=== PATIENT | male | born 1940 | race Caucasian/White ===

== ENCOUNTER 2023-05-12 02:37 | Observation (INO) ==
--- NOTE | 2023-05-12 02:53 | Emergency Department Note ---
History of Present Illness General Chief complaint: Chest Pain Stated complaint: CHEST PAIN Time Seen by Provider: 05/12/23 02:39 History of Present Illness 83-year-old male presents emergency department with substernal chest pressure radiating across his chest into his back with slight nausea that started at 11 :30 PM while he was watching a boxing match on television. Patient has a history of A-fib he is currently on Eliquis. Patient called 911 he states the pain was 10 out of 10 he was given 100 mcg of fentanyl and 3 sublingual nitro as well as Zofran and he states resolution of the chest pain. Patient has no other complaints such as nausea vomiting cough fever hemoptysis. Home Medications Medication Instructions Recorded Confirmed Type allopurinol 100 mg tablet 100 mg PO BID 05/12/23 05/12/23 History apixaban 5 mg tablet (Eliquis) 5 mg PO BID 05/12/23 05/12/23 History cholecalciferol (vitamin D3) 25 25 mcg PO DAILY 05/12/23 05/12/23 History mcg (1,000 unit) tablet (Vitamin D3) losartan 25 mg tablet 25 mg PO DAILY 05/12/23 05/12/23 History zinc gluconate 50 mg tablet 50 mg PO DAILY 05/12/23 05/12/23 History Allergies Allergy/AdvReac Type Severity Reaction Status Date / Time aspirin Allergy Unknown Verified 05/12/23 03:13 Past Med/Surg History Immunizations: Past medical history is atrial fibrillation Review of Systems A total of 10 systems reviewed and were otherwise negative Cardiovascular: + chest pain Physical Exam Vital Signs Vital Signs - 24 hr 05/12/23 02:56 05/12/23 03:32 05/12/23 03:52 Temperature 36.8 C Temperature Source Oral Pulse Rate 68 75 Pulse Rate from SpO2 Sensor Respiratory Rate 18 18 Respiratory Effort / Characteristics Non-Labored Spontaneous Respiratory Depth Normal Blood Pressure 131/64 Blood Pressure Mean 86 Pulse Oximetry 96 98 Oxygen Delivery Method Nasal Cannula Nasal Cannula Nasal Cannula Oxygen Flow Rate 2 2 2 Sepsis Recent Fever Within 48 Hours No Sepsis New/Unexplained Change in Mental Status No Sepsis Action Taken by Nursing No Action Required 05/12/23 02:53 05/12/23 03:00 05/12/23 03:30 Temperature Temperature Source Pulse Rate 82 75 79 Pulse Rate from SpO2 Sensor 83 76 77 Respiratory Rate 24 27 H 24 Respiratory Effort / Characteristics Respiratory Depth Blood Pressure 137/78 Blood Pressure Mean 97 Pulse Oximetry 92 97 98 Oxygen Delivery Method Oxygen Flow Rate Sepsis Recent Fever Within 48 Hours Sepsis New/Unexplained Change in Mental Status Sepsis Action Taken by Nursing 05/12/23 04:00 05/12/23 04:30 Temperature Temperature Source Pulse Rate 76 65 Pulse Rate from SpO2 Sensor 74 64 Respiratory Rate 22 16 Respiratory Effort / Characteristics Respiratory Depth Blood Pressure 104/56 L Blood Pressure Mean 72 Pulse Oximetry 99 98 Oxygen Delivery Method Oxygen Flow Rate Sepsis Recent Fever Within 48 Hours Sepsis New/Unexplained Change in Mental Status Sepsis Action Taken by Nursing GENERAL: Patient is awake alert in no acute distress patient is resting comfortably and showing no signs of anxiety EYES: The conjunctivae are clear. The pupils are round and reactive. EARS, NOSE, MOUTH AND THROAT: The nose is without any evidence of any deformity. Mucous membranes are moist. Tongue is midline. NECK: The neck is nontender and supple. RESPIRATORY: Normal respiratory effort is noted there is no evidence of wheezing rhonchi or rales CARDIOVASCULAR: Irregular rate and rhythm noted there no murmurs rubs or gallops normal S1 normal S2. GASTROINTESTINAL: The abdomen is soft. Abdomen is nontender. BACK: Full range of motion MUSCULOSKELETAL/EXTREMITIES: There is no evidence of gross deformity full range of motion is noted in the hips and shoulders. SKIN: There is no obvious evidence of any rash. There are no petechiae, pallor or cyanosis noted. NEUROLOGIC: Patient is awake alert and oriented x3 strength is symmetric Course Reevaluation(s) Reevaluation #1: Patient is resting in no distress on repeat examination. Patient was given and fentanyl prior to arrival Time: 04:39 Consultations Consultation #1: [facility] Time: 04:39 Medical Decision Making Medical Records Attestation: I reviewed the patient's medical records. Home Medications Current Medication List: was personally reviewed by me Laboratory Data Attestation: I reviewed the patient's lab results. Patient has an elevated white blood cell count as interpreted by me 05/12/23 03:38 05/12/23 03:38 Lab Results 05/12/23 05/12/23 05/12/23 Range/Units 03:38 03:38 03:38 WBC 13.87 H (4.8-10.8) K/ul RBC 5.18 (4.70-6.10) M/uL Hgb 16.3 (14.0-18.0) g/dl Hct 47.7 (42.0-52.0) % MCV 92.1 (80.0-100.0) fL MCH 31.5 (25.0-34.0) pg MCHC 34.2 (32.0-36.0) g/dL RDW Std Deviation 46.1 (36.4-46.3) fL RDW Coeff of Storm 13.6 (11.5-14.5) % Plt Count 153 (130-400) K/uL MPV 11.3 (9.4-12.4) fL Immature Gran % (Auto) 0.4 % Neut % (Auto) 88.4 % Lymph % (Auto) 6.0 % Jack % (Auto) 4.6 % Eos % (Auto) 0.4 % Baso % (Auto) 0.2 % Neut # (Auto) 12.26 H (1.40-6.50) K/uL Lymph # (Auto) 0.83 L (1.2-3.4) K/uL Jack # (Auto) 0.64 H (0.11-0.59) K/uL Eos # (Auto) 0.05 (0-0.50) K/uL Baso # (Auto) 0.03 (0-0.2) K/uL Immature Gran # (Auto) 0.06 (0.01-0.20) K/uL PT 12.2 H (9.0-12.0) Seconds INR 1.1 (0.9-1.1) APTT 29.3 (21.0-31.0) Seconds PTT Ratio 1.0 Sodium 135 L (136-145) mmol/L Potassium 4.2 (3.5-5.1) mmol/L Chloride 102 (98-107) mmol/L Carbon Dioxide 26 (21-32) mmol/L Anion Gap 7 (3-11) BUN 15 (6-23) mg/dl Creatinine 1.12 (0.6-1.4) mg/dl Est Cr Clr Drug Dosing 48.4 ml/min Est GFR ( Amer) 71.0 ml/min Est GFR (Non-Af Amer) 61.3 ml/min BUN/Creatinine Ratio 13.4 (10-20) Glucose 109 H (70-99(Fasting)) mg/dl Calcium 10.2 (8.6-10.3) mg/dl Total Bilirubin 0.9 (0.2-1.0) mg/dl AST 26 (13-39) U/L ALT 14 (7-52) U/L Alkaline Phosphatase 144 H (34-104) U/L Troponin I High Sens 11.1 (0-20) pg/ml Total Protein 7.4 (6.0-8.3) gm/dl Albumin 4.4 (3.4-5.0) gm/dl Globulin 3.0 (2.5-4.0) gm/dl Albumin/Globulin Ratio 1.5 (0.9-2) Lipase 25 (11-82) U/L SARS-CoV-2, RNA, NAAT (NEGATIVE) 05/12/23 Range/Units 03:38 WBC (4.8-10.8) K/ul RBC (4.70-6.10) M/uL Hgb (14.0-18.0) g/dl Hct (42.0-52.0) % MCV (80.0-100.0) fL MCH (25.0-34.0) pg MCHC (32.0-36.0) g/dL RDW Std Deviation (36.4-46.3) fL RDW Coeff of Storm (11.5-14.5) % Plt Count (130-400) K/uL MPV (9.4-12.4) fL Immature Gran % (Auto) % Neut % (Auto) % Lymph % (Auto) % Jack % (Auto) % Eos % (Auto) % Baso % (Auto) % Neut # (Auto) (1.40-6.50) K/uL Lymph # (Auto) (1.2-3.4) K/uL Jack # (Auto) (0.11-0.59) K/uL Eos # (Auto) (0-0.50) K/uL Baso # (Auto) (0-0.2) K/uL Immature Gran # (Auto) (0.01-0.20) K/uL PT (9.0-12.0) Seconds INR (0.9-1.1) APTT (21.0-31.0) Seconds PTT Ratio Sodium (136-145) mmol/L Potassium (3.5-5.1) mmol/L Chloride (98-107) mmol/L Carbon Dioxide (21-32) mmol/L Anion Gap (3-11) BUN (6-23) mg/dl Creatinine (0.6-1.4) mg/dl Est Cr Clr Drug Dosing ml/min Est GFR ( Amer) ml/min Est GFR (Non-Af Amer) ml/min BUN/Creatinine Ratio (10-20) Glucose (70-99(Fasting)) mg/dl Calcium (8.6-10.3) mg/dl Total Bilirubin (0.2-1.0) mg/dl AST (13-39) U/L ALT (7-52) U/L Alkaline Phosphatase (34-104) U/L Troponin I High Sens (0-20) pg/ml Total Protein (6.0-8.3) gm/dl Albumin (3.4-5.0) gm/dl Globulin (2.5-4.0) gm/dl Albumin/Globulin Ratio (0.9-2) Lipase (11-82) U/L SARS-CoV-2, RNA, NAAT NEGATIVE (NEGATIVE) Imaging Data Attestation: I personally reviewed and interpreted this imaging study as follows: My Impression: Chest x-ray interpreted by me cardiomegaly ECG Data Attestation: I personally reviewed and interpreted this ECG as follows: Additional Comments: EKG interpreted by me atrial flutter with AV block is variable in nature rate of [address] segment elevation or depression poor R wave progression the rhythm right axis deviation Telemetry was ordered by me, interpreted as atrial flutter rate of 72 MDM Narrative Medical decision making differential diagnosis includes angina, unstable angina, acute coronary syndrome, acute OK, musculoskeletal chest pain, pneumonia Plan is to check cardiac labs EMS medical report was reviewed by me Patient's heart score is a 5 Patient is pain-free currently has a normal troponin and has a rate controlled atrial flutter EKG. Patient will be admitted Impression & Plan Chest pain Discharge Plan Visit Data Chief Complaint: Chest Pain Stated Complaint: CHEST PAIN ED Provider: Randall Santana Discharge Problem: Chest pain Patient Disposition: Admitted As Inpatient Forms Stand Alone Forms: My [facility] Prescriptions Prescriptions: No Action allopurinol 100 mg tablet 100 mg PO BID losartan 25 mg tablet 25 mg PO DAILY zinc gluconate 50 mg Tablet 50 mg PO DAILY cholecalciferol (vitamin D3) [Vitamin D3] 25 mcg (1,000 unit) Tablet 25 mcg PO DAILY Eliquis 5 mg tablet 5 mg PO BID Referrals Referrals: [facility] [Outside Practitioners] -
[2023-05-12 04:06] LABS: Basophils % (auto) 0.2 %; Eosinophils % (auto) 0.4 %; Hematocrit (blood only) 47.7 % (42.0-52.0); Hemoglobin 16.3 g/dl (14.0-18.0); Immature Granulocytes % (auto) 0.4 %; Mean Corpuscular Hemoglobin 31.5 pg (25.0-34.0); Mean Corpuscular Hgb Conc 34.2 g/dL (32.0-36.0); Mean Corpuscular Volume 92.1 fL (80.0-100.0); Mean Platelet Volume 11.3 fL (9.4-12.4); Monocytes % (auto) 4.6 %; Neutrophils % (auto) 88.4 %; Platelet Count 153 K/uL (130-400); RDW Coefficient of Variation 13.6 % (11.5-14.5); RDW Standard Deviation 46.1 fL (36.4-46.3); Red Blood Count 5.18 M/uL (4.70-6.10); White Blood Count 13.87 K/ul (4.8-10.8)
[2023-05-12 04:07] LABS: Basophils # (auto) 0.03 K/uL (0-0.2); Eosinophils # (auto) 0.05 K/uL (0-0.50); Immature Granulocytes # (auto) 0.06 K/uL (0.01-0.20); Lymphocytes # (auto) 0.83 K/uL (1.2-3.4); Monocytes # (auto) 0.64 K/uL (0.11-0.59); Neutrophils # (auto) 12.26 K/uL (1.40-6.50)
[2023-05-12 04:20] LABS: Albumin Globulin Ratio 1.5 (0.9-2); Albumin Level 4.4 gm/dl (3.4-5.0); BUN Creatinine Ratio 13.4 (10-20); Bilirubin,Total 0.9 mg/dl (0.2-1.0); Calcium 10.2 mg/dl (8.6-10.3); Creatinine Clr Calc Pharmacy 48.4 ml/min; Est GFR (Non-African American) 61.3 ml/min; Potassium 4.2 mmol/L (3.5-5.1); Total Protein 7.4 gm/dl (6.0-8.3)
[2023-05-12 04:26] LABS: Troponin I High Sensitivity 11.1 pg/ml (0-20)
[2023-05-12 04:38] LABS: INR 1.1 (0.9-1.1); Partial Thromboplastin Time 29.3 Seconds (21.0-31.0); Prothrombin Time 12.2 Seconds (9.0-12.0)
--- NOTE | 2023-05-12 07:38 | Electrocardiogram Report ---
Test Reason : Blood Pressure : / mmHG Vent. Rate : 072 BPM Atrial Rate : 375 BPM P-R Int : 000 ms QRS Dur : 094 ms QT Int : 422 ms P-R-T Axes : 000 075 051 degrees QTc Int : 462 ms Atrial flutter with variable A-V block vs atrial fibrillation Low voltage QRS Abnormal ECG When compared with ECG of 10-MAR-2014 13:50, Atrial flutter has replaced Sinus rhythm Non-specific change in ST segment in Inferior leads Confirmed by Ian Willis ([id number]) on 05/12/2023 7:38:48 AM Referred By: REFERRED SELF Confirmed By:Charan Willis
[2023-05-12] MEDS ORDERED: NITROGLYCERIN SL 0.4 MG/TAB TAB SL PRN (08:10)
[2023-05-12] MEDS ORDERED: ACETAMINOPHEN 325 MG TAB PO PRN (08:10)
--- NOTE | 2023-05-12 08:27 | XRay Report ---
XR chest 1V portable CLINICAL HISTORY: Chest pain, nonspecific TECHNIQUE: Single frontal radiograph of the chest was obtained. Comparison: None available at the time of this dictation. FINDINGS: No lines and tubes are seen. Cardiomegaly is noted. Prominence and cephalization of the vasculature i s seen. No evidence of pleural effusion or pneumothorax. IMPRESSION: Cardiomegaly and mild pulmonary edema. ACT 112: Negative or not required by law. Electronically signed by: True Fagan M.D. 05/12/2023 8:26 AM
--- NOTE | 2023-05-12 09:00 | History and Physical Report ---
DATE OF ADMISSION: 05/12/2023. CHIEF COMPLAINT: Chest pain. HISTORY OF PRESENT ILLNESS: This is an 83-year-old male with past medical history significant for hyperlipidemia, paroxysmal atrial fibrillation, history of mitral valve prolapse, severe mitral regurgitation, chronic kidney disease, stage III, generalized osteoarthritis, gout arthropathy, tobacco use disorder, who lives alone, presents with chest pain. The patient was watching a boxing match around 11:30 p.m., he noticed chest pain. As it was not getting better and seems going to left arm , he called the EMS and was brought in here. On the way, as the pain was 10/10, across the chest , he was given 100 mcg of fentanyl and 3 sublingual nitro as well as Zofran en route and had complete resolution of chest pain. Currently, there is chest pain only when he is taking deep breath and while he is coughing. Resting comfortably. Somewhat drowsy. Daughter is in the room. During the episode, he felt little warm and short of breath, but denies any nausea or any sweating or any dizziness. No headache, no blurred visions, no runny nose, no sore throat, afebrile. No abdominal pain. Normal bowel and bladder movements. He is ambulating okay at home. He recently saw Cardiology and echo was reviewed, which was showing EF of 50%, decreased from 61% from couple of years ago and he has also had severe mitral regurgitation with dilatation of both left atrium and right atrium. Cardiology recommended to follow up with the valve clinic. ALLERGIES: ASPIRIN. PAST MEDICAL HISTORY: As mentioned above. PAST SURGICAL HISTORY: Knee bursectomy, kidney stone removal. MEDICATIONS: The patient is on allopurinol 100 mg p.o. b.i.d., Eliquis 5 mg p.o. b.i.d., vitamin D 25 mcg p.o. daily, losartan 25 mg p.o. daily, zinc gluconate 50 mg p.o. daily. FAMILY HISTORY: Significant for father had skin cancer. Mother had diabetes. Father had heart disorder. Sister has hypertension, diabetes. SOCIAL HISTORY: . Lives alone. Chews tobacco. Alcohol occasionally. No drug use. REVIEW OF SYSTEMS: As per HPI. Rest of review of systems is negative. PHYSICAL EXAMINATION: GENERAL: The patient is of moderate build, not in acute distress. VITAL SIGNS: Temperature 36.8, pulse 65, respiratory rate 16, blood pressure 104/56, oxygen 98% on 2 L. HEENT: Pupils equal, round and reactive to light. Oral mucosa moist. NECK: No JVD, no neck masses. CARDIOVASCULAR: S1 and S2 heard. Regular rate and rhythm. Murmur heard in mitral area. RESPIRATORY SYSTEM: Normal AP diameter. No accessory muscle use. No wheezing or crackles. ABDOMEN: Soft, bowel sounds present, nontender, no distention. CENTRAL NERVOUS SYSTEM: Cranial nerves II through XII grossly intact. Nonfocal. EXTREMITIES: Mild pedal edema present, no erythema seen. LABORATORY DATA: WBC 13.8, hemoglobin 13.3, hematocrit 47.7, platelets 153. PT 12.1, INR 1.1. Sodium 135, potassium 4.2, chloride 102, bicarbonate 26, BUN 15, creatinine 1.1, serum glucose 109, calcium 10.2, total bilirubin 0.9, AST 26, ALT 14, alkaline phosphatase 144. Troponin I high sensitivity 11.1. Lipase 25. SARS-CoV-2 rapid test negative. IMAGING DATA: Chest x-ray, no acute findings. EKG, atrial flutter with variable AV block at a rate of 72. Nonspecific ST changes seen. ASSESSMENT AND PLAN: This is an 83-year-old male, who presents with chest pain. 1. Chest pain. intial workup ok. Currently pain resolved after receiving nitro and fentanyl enroute to the hospital. Rule out acute coronary syndrome. We will follow serial enzymes. Monitor in tele floor. We will keep him n.p.o. Consult cardiology. The patient just recently had echocardiogram. Repeat echo as per Cardiology. 2. History of severe mitral regurgitation. Recent echo on 04/30/2023 showed EF of 50%, decreased from previous. Cardiology recommended to follow up with valve clinic. 3. History of paroxysmal atrial fibrillation. Rate controlled on Eliquis. 4. History of gout. On allopurinol. 5. Hypertension, on losartan. 6. Chronic kidney disease, stage III. Currently with a creatinine of 1.1. Follow the labs. 7. Deep venous thrombosis prophylaxis. On Eliquis. DISPOSITION: Closely monitor in tele floor. Observe in tele floor. Expect to discharge home and follow with family doctor. Level 1 full code. Job ID: [id number] [facility]
[2023-05-12] MEDS: APIXABAN 5 MG TABLET PO SCH ×2 (11:54→21:44)
--- NOTE | 2023-05-12 13:12 | Communication Note ---
Date of Service: May 12, 2023 Patient seen and examined in the ED. Is comfortably sitting up on the chair; saturating well at 2 L of nasal cannula Reports chest pain on deep inspiration Constitutional: WD/WN, vitals as above, NAD, sitting up in bed, pleasant, conversing easily Head: Normocephalic, Atraumatic Respiratory: normal respiratory effort, lungs clear to auscultation, no wheeze, rales, rhonchi. Normal insp/exp effort, no accessory muscle use Cardiovascular: Irregular, systolic murmur, no edema Vessels: no JVD or carotid bruit Chest: normal inspection of chest Abdomen: normal bowel sounds, soft, nontender, no hepatosplenomegaly Musculoskeletal: no cyanosis or clubbing, extremities motor strength 5/5 Skin: no rashes, warm and dry normal turgor Neurologic: PERRL, EOMI, accommodation nl, no face palsy, no dysarthria CN's II- XI intact bilaterally and moves all extremities Psychiatric: A+Ox3, euthymic affect Assessment/plan Pleuritic chest pain; reports recent URTI. will start him on Tylenol scheduled. Will obtain echocardiogram to rule out pericarditis. Discussed with cardiology A flutter with variable conduction; not on any rate control medication. Continue on Eliquis Hypertensioncontinue on losartan
--- NOTE | 2023-05-12 13:19 | Cardiology Consultation ---
Date of Consultation May 12, 2023 Assessment & Plan (1) Chest pain, pleuritic: (2) Mitral valve prolapse: (3) Severe mitral insufficiency: (4) Persistent atrial fibrillation: Plan Patient is an 83-year-old male with underlying medical issues as noted presents with symptoms of pleuritic pain and discomfort clinically improving. Possible recent viral syndrome. Does note per records prior gouty arthropathy treated intermittently with colchicine. Echocardiogram without effusion, no acute EKG changes or troponin abnormality Chest x-ray without infiltrate or edema Patient anticoagulated with apixaban chronically Plan: Patient being treated with anti-inflammatory therapy with Tylenol. Consider adding colchicine given past usage History of Present Illness Reason for Consultation: Pleuritic chest pain Requesting Physician: , Attending Physician: Dr. Teran History of Present Illness Patient is an 83-year-old male ongoing cardiac issues which include 1. Persistent atrial fibrillation 2. Bileaflet mitral valve prolapse with severe mitral sufficiency 3. Mild left ventricular ventricular dysfunction Patient presents this admission noting symptoms of pleuritic chest pain severe and sharp beginning evening prior to admission. Symptoms persisted this morning no associated diaphoresis or shortness of breath. Possible recent viral syndrome symptoms improved on ER presentation EKG and enzymes initially without evidence of myocardial injury Echocardiogram preliminary without pericardial effusion Patient overall is been recently stable. Was begun on losartan several days prior to hospitalization with no acute changes. No bleeding difficulties on chronic anticoagulation. No falls or injuries. No syncope or near syncope. Atrial fibrillation appears persistent by review of record Allergies Allergy/AdvReac Type Severity Reaction Status Date / Time aspirin Allergy Unknown Verified 05/12/23 03:13 Home Medications Medication Instructions Recorded Confirmed Type allopurinol 100 mg tablet 100 mg PO BID 05/12/23 05/12/23 History apixaban 5 mg tablet (Eliquis) 5 mg PO BID 05/12/23 05/12/23 History cholecalciferol (vitamin D3) 25 25 mcg PO DAILY 05/12/23 05/12/23 History mcg (1,000 unit) tablet (Vitamin D3) losartan 25 mg tablet 25 mg PO DAILY 05/12/23 05/12/23 History zinc gluconate 50 mg tablet 50 mg PO DAILY 05/12/23 05/12/23 History Patient History Social History Smoking Status: Former smoker Hx Alcohol Use: No Hx Substance Use: No Beliefs That Will Affect Care: None Current Living Situation: Alone Feels Safe at Home: Yes Safety Concerns: Feels Safe At This Time Physical Exam Constitutional: WD/WN, vitals as above Eyes: PERRL, conjunctivae normal, anicteric sclerae ENMT: external ear and nose normal, oropharynx normal Neck: trachea midline, no thyromegaly Respiratory: no cough and not tachypneic Auscultation: lungs clear to auscultation bilaterally Cardiovascular: Rate/Rhythm: regular rate and regular rhythm Heart Sounds: + murmur (About grade 3/6 holosystolic murmur throughout the precordium) Vessels: no JVD Extremities: no edema Gastrointestinal (Abdomen): normal bowel sounds, soft, nontender, no hepatosplenomegaly Musculoskeletal: no cyanosis or clubbing, extremities motor strength 5/5 Results & Data Vital Signs (Past 12 Hours) Vital Signs Temp Pulse Pulse Resp BP BP Pulse Ox 05/12/23 13:00 36.7 C 55 L 18 130/70 95 05/12/23 09:00 65 18 134/87 95 05/12/23 08:04 56 L 05/12/23 07:08 05/12/23 06:30 73 18 05/12/23 06:00 67 16 129/78 98 05/12/23 05:45 68 23 140/94 05/12/23 05:30 58 L 15 96 05/12/23 05:30 122/64 05/12/23 05:15 60 16 97 05/12/23 05:15 113/77 05/12/23 05:00 59 L 18 97 05/12/23 05:00 121/76 05/12/23 04:45 66 17 98 05/12/23 04:45 114/65 05/12/23 02:48 70 05/12/23 04:30 65 16 104/56 L 98 05/12/23 04:00 76 22 99 05/12/23 03:30 79 24 98 05/12/23 03:00 75 27 H 137/78 97 05/12/23 02:53 82 24 92 05/12/23 03:52 05/12/23 03:32 75 18 98 05/12/23 02:56 36.8 C 68 18 131/64 96 O2 Del Method O2 Flow Rate 05/12/23 13:00 Room Air 05/12/23 09:00 Nasal Cannula 2 05/12/23 08:04 05/12/23 07:08 Nasal Cannula 05/12/23 06:30 05/12/23 06:00 05/12/23 05:45 05/12/23 05:30 05/12/23 05:30 05/12/23 05:15 05/12/23 05:15 05/12/23 05:00 05/12/23 05:00 05/12/23 04:45 05/12/23 04:45 05/12/23 02:48 05/12/23 04:30 05/12/23 04:00 05/12/23 03:30 05/12/23 03:00 05/12/23 02:53 05/12/23 03:52 Nasal Cannula 2 05/12/23 03:32 Nasal Cannula 2 05/12/23 02:56 Nasal Cannula 2 Laboratory Results Laboratory Results - last 24 hr 05/12/23 05/12/23 05/12/23 03:38 03:38 03:38 WBC 13.87 H RBC 5.18 Hgb 16.3 Hct 47.7 MCV 92.1 MCH 31.5 MCHC 34.2 RDW Std Deviation 46.1 RDW Coeff of Storm 13.6 Plt Count 153 MPV 11.3 Immature Gran % (Auto) 0.4 Neut % (Auto) 88.4 Lymph % (Auto) 6.0 Loup % (Auto) 4.6 Eos % (Auto) 0.4 Baso % (Auto) 0.2 Neut # (Auto) 12.26 H Lymph # (Auto) 0.83 L [place]oup # (Auto) 0.64 H Eos # (Auto) 0.05 Baso # (Auto) 0.03 Immature Gran # (Auto) 0.06 PT 12.2 H INR 1.1 APTT 29.3 PTT Ratio 1.0 Sodium 135 L Potassium 4.2 Chloride 102 Carbon Dioxide 26 Anion Gap 7 BUN 15 Creatinine 1.12 Est Cr Clr Drug Dosing 48.4 Est GFR ( Amer) 71.0 Est GFR (Non-Af Amer) 61.3 BUN/Creatinine Ratio 13.4 Glucose 109 H Calcium 10.2 Total Bilirubin 0.9 AST 26 ALT 14 Alkaline Phosphatase 144 H Troponin I High Sens 11.1 Total Protein 7.4 Albumin 4.4 Globulin 3.0 Albumin/Globulin Ratio 1.5 Lipase 25 SARS-CoV-2, RNA, NAAT 05/12/23 05/12/23 05/12/23 03:38 06:31 12:01 WBC RBC Hgb Hct MCV MCH MCHC RDW Std Deviation RDW Coeff of Storm Plt Count MPV Immature Gran % (Auto) Neut % (Auto) Lymph % (Auto) [place]oup % (Auto) Eos % (Auto) Baso % (Auto) Neut # (Auto) Lymph # (Auto) [place]oup # (Auto) Eos # (Auto) Baso # (Auto) Immature Gran # (Auto) PT INR APTT PTT Ratio Sodium Potassium Chloride Carbon Dioxide Anion Gap BUN Creatinine Est Cr Clr Drug Dosing Est GFR ( Amer) Est GFR (Non-Af Amer) BUN/Creatinine Ratio Glucose Calcium Total Bilirubin AST ALT Alkaline Phosphatase Troponin I High Sens 17.7 D 14.1 Total Protein Albumin Globulin Albumin/Globulin Ratio Lipase SARS-CoV-2, RNA, NAAT NEGATIVE Diagnostic Findings Echocardiogram 04/30/2023 [facility] There was atrial fibrillation during the examination. The left ventricular cavity size is normal. The LV wall thickness is normal. There is mild diffuse left ventricular hypokinesis. The qualitative LV ejection fraction is 50-54% (normal). There is biatrial enlargement The mitral valve leaflets thickness is moderately increased. There is moderate mitral annular calcification. There is mild prolapse of the anterior mitral leaflet and moderate prolapse of the posterior mitral leaflet. Severe mitral regurgitation is present. Moderate tricuspid regurgitation is present. Mild pulmonary hypertension is present. In comparison to study of July 27, 2021, mitral insufficiency has increased LV systolic function is less
[2023-05-12] MEDS: CHOLECALCIFEROL 1,000 UNITS 25 MCG TAB PO SCH (13:36)
[2023-05-12] MEDS: ACETAMINOPHEN 325 MG TAB PO SCH ×3 (13:36→21:44)
[2023-05-12] MEDS: LOSARTAN POTASSIUM 25 MG TAB PO SCH (13:36)
[2023-05-12] MEDS: allopurinoL 100 MG TAB PO SCH ×2 (13:36→21:44)
[2023-05-12] MEDS: ZINC SULFATE 220 MG CAPSULE PO SCH (13:36)
[2023-05-13 04:57] LABS: Basophils # (auto) 0.04 K/uL (0-0.2); Basophils % (auto) 0.5 %; Eosinophils # (auto) 0.08 K/uL (0-0.50); Eosinophils % (auto) 0.9 %; Hematocrit (blood only) 42.5 % (42.0-52.0); Hemoglobin 14.5 g/dl (14.0-18.0); Immature Granulocytes # (auto) 0.02 K/uL (0.01-0.20); Immature Granulocytes % (auto) 0.2 %; Lymphocytes # (auto) 1.92 K/uL (1.2-3.4); Lymphocytes % (auto) 22.1 %; Mean Corpuscular Hemoglobin 31.1 pg (25.0-34.0); Mean Corpuscular Hgb Conc 34.1 g/dL (32.0-36.0); Mean Corpuscular Volume 91.2 fL (80.0-100.0); Mean Platelet Volume 11.3 fL (9.4-12.4); Monocytes # (auto) 0.85 K/uL (0.11-0.59); Monocytes % (auto) 9.8 %; Neutrophils # (auto) 5.77 K/uL (1.40-6.50); Neutrophils % (auto) 66.5 %; Platelet Count 133 K/uL (130-400); RDW Coefficient of Variation 13.7 % (11.5-14.5); RDW Standard Deviation 46.2 fL (36.4-46.3); Red Blood Count 4.66 M/uL (4.70-6.10); White Blood Count 8.68 K/ul (4.8-10.8)
[2023-05-13] MEDS: ACETAMINOPHEN 325 MG TAB PO SCH ×2 (05:03→11:25)
[2023-05-13 05:10] LABS: BUN Creatinine Ratio 18.8 (10-20); C Reactive Protein 14.84 mg/dl (0-0.5); Calcium 9.5 mg/dl (8.6-10.3); Creatinine Clr Calc Pharmacy 46.3 ml/min; Est GFR (African American) 67.4 ml/min; Est GFR (Non-African American) 58.1 ml/min; Potassium 4.2 mmol/L (3.5-5.1)
[2023-05-13] MEDS: allopurinoL 100 MG TAB PO SCH (08:09)
[2023-05-13] MEDS: LOSARTAN POTASSIUM 25 MG TAB PO SCH (08:09)
[2023-05-13] MEDS: CHOLECALCIFEROL 1,000 UNITS 25 MCG TAB PO SCH (08:09)
[2023-05-13] MEDS: ZINC SULFATE 220 MG CAPSULE PO SCH (08:09)
[2023-05-13] MEDS: APIXABAN 5 MG TABLET PO SCH (08:09)
[2023-05-13] MEDS ORDERED: COLCHICINE 0.6 MG TAB PO SCH (10:45)
--- NOTE | 2023-05-13 11:16 | Cardiology Progress Note ---
Date of Service May 13, 2023 Assessment & Plan (1) Chest pain, pleuritic: (2) Mitral valve prolapse: (3) Severe mitral insufficiency: (4) Persistent atrial fibrillation: Plan Patient is an 83-year-old male with underlying medical issues as noted above presents with symptoms of pleuritic pain and discomfort clinically improving. Possible recent viral syndrome. Does note per records prior gouty arthropathy treated intermittently with colchicine. Echocardiogram without effusion, no acute EKG changes or troponin abnormality Chest x-ray without infiltrate or edema Patient anticoagulated with apixaban chronically Pain persists despite Tylenol over the last 24 hours. Will try colchicine 0.6 mg daily. Can be increased to BID dosing if needed Case discussed with Dr. Membreno I spent a total of 25 minutes on the date of service in preparation, delivery, and documentation of the care provided to this patient, excluding any time spent in the performance of separately billed services. Cyndy Acevedo PA-C Department of Cardiology, [facility] This chart was completed in part utilizing Speech Voice Recognition Software. Grammatical errors, random word insertions, pronoun errors, and incomplete sentences are an occasional consequence of this system due to software limitations, ambient noise, and hardware issues. Any formal questions or concerns about the content, text, or information contained within the body of this dictation should be directly addressed to the provider for clarification. Admission and Anticipated Discharge Date Admission Date: May 12, 2023 Supervising Physician Co-Signing Physician Notes Supervising Physician Attestation: I have personally performed a history and physical examination on the patient. I agree with the physician assistant softball coach's findings and plan as documented with the following additions. Subjective: Pt with ongoing chest pain reproduced with deep breathing that is not characteristic of angina. Telemetry revealed at 9 beat run of nonsustained ventricular tachycardia on 05/12/23 at 7:19 am without any additional episodes. Exam: CV: 2/6 SM, no edema Chest wall: no pain on palpation. Data: HS troponin negative x 5 CRP elevated at 14.84 mg/dl Assessment and Plan: -as noted above Continue Tylenol. Add colchicine. -moderate to severe MR noted on telemetry. Follow up as outpatient. DVT prophylaxis: Pt is on full anticoagulation dose Autumn Membreno, DO Subjective Patient resting comfortably out of bed. Continues to report pleuritic chest pain with only deep inspiration. No pain when laying supine. He also notes pain with coughing. No fever or chills. No chest pain with ambulation in his room. No orthopnea, PND or edema. Review of Systems Review of Systems: All systems reviewed & are unremarkable except as noted in HPI & below Physical Exam Constitutional: WD/WN, vitals as above Eyes: PERRL, conjunctivae normal, anicteric sclerae ENMT: external ear and nose normal, oropharynx normal Neck: trachea midline, no thyromegaly Respiratory: no cough and not tachypneic Auscultation: lungs clear to auscultation bilaterally Cardiovascular: Rate/Rhythm: regular rate and regular rhythm Heart Sounds: + murmur (About grade 3/6 holosystolic murmur throughout the precordium) Vessels: no JVD Extremities: no edema Gastrointestinal (Abdomen): normal bowel sounds, soft, nontender, no hepatosplenomegaly Musculoskeletal: no cyanosis or clubbing, extremities motor strength 5/5 Results & Data Vital Signs (Past 12 Hours) Vital Signs Temp Pulse Resp BP Pulse Ox O2 Del Method 05/13/23 07:00 37.2 C 62 20 100/52 L 96 Room Air 05/13/23 03:33 36.5 C 52 L 20 109/65 94 Room Air Laboratory Results Cardiac Enzymes 05/12/23 05/12/23 05/12/23 Range/Units 12:01 17:48 23:34 Troponin I High Sens 14.1 15.8 13.9 (0-20) pg/ml CBC 05/13/23 Range/Units 04:38 WBC 8.68 (4.8-10.8) K/ul RBC 4.66 L (4.70-6.10) M/uL Hgb 14.5 (14.0-18.0) g/dl Hct 42.5 (42.0-52.0) % Plt Count 133 (130-400) K/uL Neut # (Auto) 5.77 (1.40-6.50) K/uL Lymph # (Auto) 1.92 (1.2-3.4) K/uL [place] # (Auto) 0.85 H (0.11-0.59) K/uL Eos # (Auto) 0.08 (0-0.50) K/uL Baso # (Auto) 0.04 (0-0.2) K/uL Comprehensive Metabolic Panel 05/13/23 Range/Units 04:38 Sodium 133 L (136-145) mmol/L Potassium 4.2 (3.5-5.1) mmol/L Chloride 101 (98-107) mmol/L Carbon Dioxide 26 (21-32) mmol/L BUN 22 (6-23) mg/dl Creatinine 1.17 (0.6-1.4) mg/dl Glucose 92 (70-99(Fasting)) mg/dl Calcium 9.5 (8.6-10.3) mg/dl Intake and Output 05/12/23 05/13/23 05/13/23 22:59 06:59 14:59 Intake Total 100 / 100 Balance 100 / 100 Intake: Oral 100 / 100 Other: # Unmeasured Voids 2 Weight 69.9 kg Weight Measurement Method Built in [facility] Diagnostic Findings Telemetry reviewed: Chronic atrial fibrillation with controlled rates in the 50's. Occ PVC. Echo report reviewed dated 05/12/2023: LV is normal in size with borderline concentric LVH. Mild global hypokinesis of the LV with ejection fraction 45-50%. Moderate mitral calcification. Mitral valve leaflets thickness is moderately increased. Mild prolapse of the anterior mitral leaflet and moderate prolapse of the posterior mitral leaflet. Trace TR RV systolic pressure is elevated at 40 to 50 mmHg. No pericardial effusion Medications Administered Current Inpatient Medications Acetaminophen (Acetaminophen 325 Mg Tab) 650 mg PO Q6H RIC Stop: 06/11/23 10:59 Last Admin: 05/13/23 05:03 Dose: 650 mg Allopurinol (Allopurinol 100 Mg Tab) 100 mg PO BID RIC Stop: 06/11/23 08:59 Last Admin: 05/13/23 08:09 Dose: 100 mg Apixaban (Apixaban 5 Mg Tablet) 5 mg PO BID RIC Stop: 06/11/23 08:59 Last Admin: 05/13/23 08:09 Dose: 5 mg Colchicine (Colchicine 0.6 Mg Tab) 0.6 mg PO QAM RIC Stop: 06/12/23 10:44 Losartan Potassium (Losartan Potassium 25 Mg Tab) 25 mg PO DAILY RIC Stop: 06/11/23 08:59 Last Admin: 05/13/23 08:09 Dose: 25 mg Nitroglycerin (Nitroglycerin Sl 0.4 Mg/Tab Tab) 0.4 mg SL Q5M PRN PRN Reason: Chest Pain Stop: 06/11/23 08:09 Vitamin D (Cholecalciferol 1,000 Units 25 Mcg Tab) 1,000 units PO DAILY RIC Stop: 06/11/23 08:59 Last Admin: 05/13/23 08:09 Dose: 1,000 units Zinc Sulfate (Zinc Sulfate 220 Mg Capsule) 220 mg PO DAILY RIC Stop: 06/11/23 08:59 Last Admin: 05/13/23 08:09 Dose: 220 mg
--- NOTE | 2023-05-13 11:51 | Discharge Summary ---
Date of Service May 13, 2023 Admission HPI Per Admitting Provider This is an 83-year-old male with past medical history significant for hyperlipidemia, paroxysmal atrial fibrillation, history of mitral valve prolapse, severe mitral regurgitation, chronic kidney disease, stage III, genera lized osteoarthritis, gout arthropathy, tobacco use disorder, who lives alone, presents with chest pain. The patient was watching a boxing match around 11:30 p.m., he noticed chest pain. As it was not getting better and seems going to left arm , he called the EMS and was brought in here. On the way, as the pain was 10/10, across the chest , he was given 100 mcg of fentanyl and 3 sublingual nitro as well as Zofran en route and had complete resolution of chest pain. Currently, there is chest pain only when he is taking deep breath and while he is coughing. Resting comfortably. Somewhat drowsy. Daughter is in the room. During the episode, he felt little warm and short of breath, but denies any nausea or any sweating or any dizziness. No headache, no blurred visions, no runny nose, no sore throat, afebrile. No abdominal pain. Normal bowel and bladder movements. He is ambulating okay at home. He recently saw Cardiology and echo was reviewed, which was showing EF of 50%, decreased from 61% from couple of years ago and he has also had severe mitral regurgitation with dilatation of both left atrium and right atrium. Cardiology recommended to follow up with the valve clinic Admission Exam Per Admitting Provider GENERAL: The patient is of moderate build, not in acute distress. VITAL SIGNS: Temperature 36.8, pulse 65, respiratory rate 16, blood pressure 104/56, oxygen 98% on 2 L. HEENT: Pupils equal, round and reactive to light. Oral mucosa moist. NECK: No JVD, no neck masses. CARDIOVASCULAR: S1 and S2 heard. Regular rate and rhythm. Murmur heard in mitral area. RESPIRATORY SYSTEM: Normal AP diameter. No accessory muscle use. No wheezing or crackles. ABDOMEN: Soft, bowel sounds present, nontender, no distention. CENTRAL NERVOUS SYSTEM: Cranial nerves II through XII grossly intact. Nonfocal. EXTREMITIES: Mild pedal edema present, no erythema seen Principal Diagnosis Pleuritis Discharge Exam Constitutional: WD/WN, vitals as above, NAD, sitting up in bed, pleasant, conversing easily Respiratory: normal respiratory effort, lungs clear to auscultation, no wheeze, rales, rhonchi. Normal insp/exp effort, no accessory muscle use Cardiovascular: Irregular, systolic murmur no edema Vessels: no JVD or carotid bruit Chest: normal inspection of chest Abdomen: normal bowel sounds, soft, nontender, no hepatosplenomegaly Musculoskeletal: no cyanosis or clubbing, extremities motor strength 5/5 Skin: no rashes, warm and dry normal turgor Neurologic: PERRL, EOMI, accommodation nl, no face palsy, no dysarthria CN's II- XI intact bilaterally and moves all extremities Psychiatric: A+Ox3, euthymic affect Discharge Data Allergies Allergy/AdvReac Type Severity Reaction Status Date / Time aspirin Allergy Unknown Verified 05/12/23 03:13 Consultations 05/12/23 04:40 ED Decision to Admit Stat 05/12/23 08:10 Consult Cardiology Routine Hospital Course (1) Persistent atrial fibrillation: (2) Chest pain, pleuritic: (3) Severe mitral insufficiency: Plan Patient is an 83-year-old male with past medical history significant for hyperlipidemia, paroxysmal atrial fibrillation, history of mitral valve prolapse, severe mitral regurgitation, chronic kidney disease, stage III, generalized osteoarthritis, gout arthropathy, tobacco use disorder presented with chest pain. The chest pain substernal; increased on deep breathing. Patient reported URTI symptoms 2 weeks prior to presentation. EKG was done which showed a flutter with slow ventricular response. High sensitive troponin was negative. CRP was elevated. Patient was treated with scheduled Tylenol for pain control. Colchicine was added due to persistent in pain. Patient reported improvement in the symptoms. He was discharged home with instruction to follow- up with PCP Total Time Total Time Spent Total Time Spent (In Minutes): 45 Total Time Includes: Examination of the Patient, Discharge Planning, Medication Reconciliation, Communication With Other Providers and Other Discharge Plan Discharge Items Patient Disposition: Home - Self-Care Reason For Visit: CHEST PAIN Discharge Diagnosis: Pleuritis Activity: Resume your previous activity Non-emergency contact: Primary Care Provider Call non-emergency contact if: you have any medication questions and your symptoms worsen Follow-up/Referrals: Susan Webster MD [Primary Care Provider] - (Date & Time 05/17/2023 11:00 AM Provider Susan Webster MD Department Family Medicine [facility] ) Diet: Regular Addtl Attending Provider Instructions: You were admitted to the hospital with chest pain. The likely cause for the chest pain is due to inflammation of the covering of the lungs. You are prescribed Tylenol to be taken 3 times a day for the next 3 days. You are also prescribed colchicine to be taken once daily for 4 more days. Please follow-up with your primary care doctor. An appointment will be set up for you. Pending Studies at Discharge: No Stand-Alone Forms: My [facility], Smoking Cessation Medications and DC Order Prescriptions: New acetaminophen 325 mg Tablet 650 mg PO Q8H Qty: 30 0RF colchicine [Colcrys] 0.6 mg Tablet 0.6 mg PO QAM 4 Days Qty: 4 0RF Continued allopurinol 100 mg tablet 100 mg PO BID losartan 25 mg tablet 25 mg PO DAILY zinc gluconate 50 mg Tablet 50 mg PO DAILY cholecalciferol (vitamin D3) [Vitamin D3] 25 mcg (1,000 unit) Tablet 25 mcg PO DAILY Eliquis 5 mg tablet 5 mg PO BID Discharge Orders: Discharge Order (Routine); Ordered 05/13/23 Ordered By: Walker Upton/Other Patient Handouts: AFib Dc, ED Chest Pain, Noncardiac Admission Data Admit Date/Time: 05/12/23 05:56 Attending Provider: Walker Teran Admit Provider: Charlie Spencer Primary Care Provider: Susan Webster Other Providers: Charlie Spencre ; Yumi Light ; Fran Membreno ; Jerry Bermeo ; Travis Lyons ; Omkar Pride ; Jerad Bashir ; Cyndy Acevedo ; Antionette Rios ; Yumi Ortiz ; Gabriel Bourgeois ; Megan Dover Other Interventions: Discharge Summary Assessment (RN) Last Done: 05/13/23 11:35
--- NOTE | 2023-05-13 18:00 | Electrocardiogram Report ---
Test Reason : Blood Pressure : / mmHG Vent. Rate : 051 BPM Atrial Rate : 051 BPM P-R Int : 000 ms QRS Dur : 094 ms QT Int : 522 ms P-R-T Axes : 000 080 071 degrees QTc Int : 481 ms Atrial fibrillation with slow ventricular response Low voltage QRS Prolonged QT Abnormal ECG When compared with ECG of 12-MAY-2023 02:42, Atrial fibrillation has replaced Atrial flutter ST elevation now present in Inferior leads Confirmed by Ian Willis ([id number]) on 05/13/2023 6:00:14 PM Referred By: REFERRED SELF Confirmed By:Charan Willis
== END 2023-05-13 12:00 | disposition home or self-care (01) ==
LOC: EDINP 02:37 → ED 02:37 → 1E 08:10

== ENCOUNTER 2024-11-09 02:30 | Observation (INO) ==
--- NOTE | 2024-11-09 02:43 | Emergency Department Note ---
Impression & Plan Chest pain, Hyperglycemia, Afib ED Provider Note NAME: MARIAN WELLS AGE: 84 SEX: M : 1940 ARRIVES VIA: Ambulance INFORMANT: Patient ED PROVIDER(S): Ricky Basilio DO CHIEF COMPLAINT: Chest pain HPI: Patient is a 84-year-old male who presents ER with a past medical history of mitral valve prolapse, mitral insufficiency who presents to the ER for chest pain. He notes that it started tonight around 1030. It is located over the mid chest and radiates to the right chest and right shoulder and jaw. Patient was given nitro and pain improved significantly. He was given aspirin as well. He notes now he just has a subtle pain which is mainly present with breathing now. No significant shortness of breath. No belly pain, nausea, vomiting or diarrhea. No dysuria, urgency or frequency. No other exacerbating or remitting factors. ADDITIONAL HISTORY OBTAINED: Per HPI Chronic Medical/Social Conditions Affecting Care: Per HPI PAST MEDICAL HISTORY:See Below PAST SURGICAL HISTORY:See Below FAMILY HISTORY:See Below SOCIAL HISTORY:See Below HOME MEDICATIONS:See Below ALLERGIES:See Below VITALS:See Below PHYSICAL EXAMINATION: GENERAL: Sitting up in bed, alert, well appearing, well nourished, no distress, non-toxic EYE EXAM: normal conjunctiva. OROPHARYNX: mucous membranes are moist CHEST: No reproducible tenderness NECK: supple, no nuchal rigidity, no adenopathy, non-tender LUNGS: Clear to auscultation. Normal chest wall mechanics HEART: no murmurs, S1 normal and S2 normal ABDOMEN: abdomen soft, non-tender, normo-active bowel sounds, no masses, no rebound or guarding. UPPER EXTREMITIES: upper extremities are grossly normal. Radial pulse are equal bilaterally LOWER EXTREMITIES: No pitting edema. Calves are equal bilaterally NEURO EXAM: Normal sensorium, cranial nerves II-XII grossly intact, normal speech, no gross weakness of arms, no gross weakness of legs. MEDICAL DECISION MAKING: Patient is an 84-year-old male who presents ER for the above-stated complaint. IV was established and blood work was obtained. Labs show mild leukocytosis of 12.6 thousand. No significant anemia. BMP with a creatinine 1.4. LFTs and bilirubin is unremarkable. Troponin was negative. Lipase normal. EKG was nondiagnostic. D-dimer was negative. Patient was updated at bedside. Large amount of pain was relieved with nitro. He still had some pain which was reminiscent and this pain was pleuritic. Patient was discussed with the hospitalist for observation overnight. He was given Toradol and morphine. Consults/Care Managements Discussions: Per [facility] Triage Nursing notes reviewed. Limited review of prior medical records performed Vital Signs: reviewed and remarkable for no significant abnormalities Differential diagnosis: Cardiac ischemia, aortic dissection, pulmonary embolism, pneumothorax, pneumonia, pericarditis, myocarditis, esophageal rupture, GERD, cholecystitis, pancreatitis, musculoskeletal, as well as other pathologies. ER treatment provided: See below Diagnostics interpreted by me include EKG and cardiac monitoring as listed below: -Cardiac Monitoring: An order was placed for continuous cardiac monitoring. The monitor shows a rate of 70 with A-fib rhythm. -ECG: A-fib rate of 77 Normal axis No PVCs QTc 468 -Laboratory studies:Interpreted by me as stated above in MDM and shown below. Imaging studies: Xrays: As interpreted by me: Portable AP upright 1 view of the chest shows no focal infiltrate CTs show: none Procedures:none Critical Care: None Past Med/Surg History Problem List (Updated 11/09/24 @ 04:26 by Ricky Basilio DO) Afib (Acute) Hyperglycemia (Acute) Severe mitral insufficiency Mitral valve prolapse Chest pain, pleuritic Chest pain (Acute) Septic prepatellar bursitis of right knee (Acute 03/11/14) Medical History (Updated 11/09/24 @ 04:26 by Ricky Basilio DO) Persistent atrial fibrillation Social History Smoking Status: Current every day smoker Tobacco Type: Smokeless Tobacco (Dip or Chew) Hx Alcohol Use: No Hx Substance Use: No Preferred Language: [place] Zealander Communication Ability: Effective Beliefs That Will Affect Care: None Current Living Situation: Alone Feels Safe at Home: Yes Assistive Devices: None Allergies Allergies Allergy/AdvReac Type Severity Reaction Status Date / Time aspirin Allergy Unknown Verified 05/12/23 03:13 Home Meds Home Medications Medication Instructions Recorded Confirmed apixaban 5 mg tablet (Eliquis) 5 mg PO BID 05/12/23 11/09/24 cholecalciferol (vitamin D3) 25 25 mcg PO QAM 05/12/23 11/09/24 mcg (1,000 unit) tablet (Vitamin D3) losartan 25 mg tablet 25 mg PO QAM 05/12/23 11/09/24 zinc gluconate 50 mg tablet 50 mg PO 3XWK 05/12/23 11/09/24 allopurinol 100 mg tablet 200 mg PO QAM 11/09/24 11/09/24 furosemide 20 mg tablet 20 mg PO QAM 11/09/24 11/09/24 spironolactone 25 mg tablet 12.5 mg PO QAM 11/09/24 11/09/24 Results & Data (ED) Vital Signs Vital Signs - 24 hr 11/09/24 02:14 11/09/24 02:35 11/09/24 02:45 Temperature 36.8 C Temperature Source Oral Pulse Rate 81 Pulse Rate [Right Finger] Respiratory Rate 22 Respiratory Effort / Characteristics Non-Labored Spontaneous Respiratory Depth Normal Respiratory Pattern Regular Blood Pressure 138/79 Blood Pressure [Right Arm] Blood Pressure Mean 98 Blood Pressure Mean [Right Arm] Pulse Oximetry 94 95 95 Oxygen Delivery Method Room Air Room Air Room Air Oxygen Flow Rate Sepsis Recent Fever Within 48 Hours No Sepsis New/Unexplained Change in Mental Status No Sepsis Action Taken by Nursing No Action Required 11/09/24 02:54 11/09/24 05:00 Temperature Temperature Source Pulse Rate 68 Pulse Rate [Right Finger] 71 Respiratory Rate 18 Respiratory Effort / Characteristics Non-Labored Spontaneous Respiratory Depth Normal Respiratory Pattern Blood Pressure Blood Pressure [Right Arm] 122/77 Blood Pressure Mean Blood Pressure Mean [Right Arm] 92 Pulse Oximetry 98 Oxygen Delivery Method Nasal Cannula Oxygen Flow Rate 2 Sepsis Recent Fever Within 48 Hours Sepsis New/Unexplained Change in Mental Status Sepsis Action Taken by Nursing Laboratory Data 11/09/24 02:35 11/09/24 02:35 Lab Results 11/09/24 11/09/24 Range/Units 02:35 02:40 WBC 12.65 H (4.8-10.8) K/ul RBC 4.58 L (4.70-6.10) M/uL Hgb 14.5 (14.0-18.0) g/dl Hct 42.4 (42.0-52.0) % MCV 92.6 (80.0-100.0) fL MCH 31.7 (25.0-34.0) pg MCHC 34.2 (32.0-36.0) g/dL RDW Std Deviation 45.4 (36.4-46.3) fL RDW Coeff of Storm 13.4 (11.5-14.5) % Plt Count 152 (130-400) K/uL MPV 10.7 (9.4-12.4) fL Immature Gran % (Auto) 0.4 % Neut % (Auto) 87.2 % Lymph % (Auto) 6.7 % [place] % (Auto) 5.3 % Eos % (Auto) 0.2 % Baso % (Auto) 0.2 % Neut # (Auto) 11.02 H (1.40-6.50) K/uL Lymph # (Auto) 0.85 L (1.20-3.40) K/uL [place] # (Auto) 0.67 H (0.11-0.59) K/uL Eos # (Auto) 0.03 (0.00-0.50) K/uL Baso # (Auto) 0.03 (0.00-0.20) K/uL Immature Gran # (Auto) 0.05 (0.01-0.20) K/uL D-Dimer 280 (0-500) ug/L FEU Sodium 135 L (136-145) mmol/L Potassium 4.5 (3.5-5.1) mmol/L Chloride 102 (98-107) mmol/L Carbon Dioxide 28 (21-32) mmol/L Anion Gap 5 (3-11) BUN 25 H (6-23) mg/dl Creatinine 1.41 H (0.6-1.4) mg/dl Est Cr Clr Drug Dosing 37.1 ml/min eGFR 49.75 BUN/Creatinine Ratio 17.7 (10-20) Glucose 127 H (70-99(Fasting)) mg/dl Calcium 9.5 (8.6-10.3) mg/dl Total Bilirubin 1.2 H (0.2-1.0) mg/dl AST 23 (13-39) U/L ALT 15 (7-52) U/L Alkaline Phosphatase 129 H (34-104) U/L Troponin I High Sens 17.1 (0-20) pg/ml Total Protein 7.2 (6.0-8.3) gm/dl Albumin 3.9 (3.4-5.0) gm/dl Globulin 3.3 (2.5-4.0) gm/dl Albumin/Globulin Ratio 1.2 (0.9-2) Lipase 18 (11-82) U/L Administered Medications Discontinued Medications Ketorolac Tromethamine (Ketorolac Tromethamine 15 Mg/Ml Vial) 10 mg IV NOW ONE Stop: 11/09/24 02:41 Last Admin: 11/09/24 02:55 Dose: 10 mg Documented By: TAMY Morphine Sulfate (Morphine Sulfate 4 Mg/Ml 1 Ml Carp\Vial) 4 mg IV NOW STA Stop: 11/09/24 04:03 Last Admin: 11/09/24 04:17 Dose: 4 mg Documented By: [facility] Ondansetron HCl (Ondansetron Inj 2 Mg/Ml 2 Ml Vial) 4 mg IV NOW STA Stop: 11/09/24 04:03 Last Admin: 11/09/24 04:17 Dose: 4 mg Documented By: [facility] Imaging Data Radiologist's Impression: Chest X-Ray 11/09/24 02:35 EXAM: XR chest 1V portable CLINICAL HISTORY: CP WTW TECHNIQUE: An X-ray image of the chest is obtained in AP projection. COMPARISON: No prior studies are available for comparison. FINDINGS: Pulmonary Parenchyma: Prominent broncho vascular markings. Lungs are clear bilaterally. No evidence of consolidation, collapse, or focal opacities. No pulmonary nodules are identified. No evidence of pleural effusion or pleural thickening. Heart and Mediastinum: Cardiomegaly. No mediastinal widening or masses. No hilar or mediastinal lymphadenopathy. Bony Thorax: The bony thorax appears intact without fractures or deformities. Soft Tissues: Soft tissues overlying the chest wall are unremarkable. IMPRESSION: Prominent broncho vascular markings. This could represent pulmonary congestion due to cardiac disease. Need clinical correlation. Electronically signed by Cora Duong 11-09-2024 03:15 AM Discharge Plan Visit Data Chief Complaint: Chest Pain Stated Complaint: CHEST PAIN ED Provider: Ricky Basilio Discharge Problem: Chest pain, Hyperglycemia, Afib Forms Stand Alone Forms: My [facility] [employer] Prescriptions Prescriptions: No Action losartan 25 mg tablet 25 mg PO QAM zinc gluconate 50 mg Tablet 50 mg PO 3XWK Patient Comments: takes every other day cholecalciferol (vitamin D3) [Vitamin D3] 25 mcg (1,000 unit) Tablet 25 mcg PO QAM Eliquis 5 mg tablet 5 mg PO BID allopurinol 100 mg tablet 200 mg PO QAM spironolactone 25 mg tablet 12.5 mg PO QAM furosemide 20 mg tablet 20 mg PO QAM Referrals Referrals: Susan Webster MD [Primary Care Provider] - Discharge Problem: Chest pain Qualifiers: Chest pain type: unspecified Qualified Code(s): R07.9 - Chest pain, unspecified
[2024-11-09] MEDS: KETOROLAC TROMETHAMINE 15 MG/ML VIAL IV ONE (02:55)
[2024-11-09 03:01] LABS: Basophils # (auto) 0.03 K/uL (0.00-0.20); Basophils % (auto) 0.2 %; Eosinophils # (auto) 0.03 K/uL (0.00-0.50); Eosinophils % (auto) 0.2 %; Hematocrit (blood only) 42.4 % (42.0-52.0); Hemoglobin 14.5 g/dl (14.0-18.0); Immature Granulocytes # (auto) 0.05 K/uL (0.01-0.20); Immature Granulocytes % (auto) 0.4 %; Lymphocytes # (auto) 0.85 K/uL (1.20-3.40); Lymphocytes % (auto) 6.7 %; Mean Corpuscular Hemoglobin 31.7 pg (25.0-34.0); Mean Corpuscular Hgb Conc 34.2 g/dL (32.0-36.0); Mean Corpuscular Volume 92.6 fL (80.0-100.0); Mean Platelet Volume 10.7 fL (9.4-12.4); Monocytes # (auto) 0.67 K/uL (0.11-0.59); Monocytes % (auto) 5.3 %; Neutrophils # (auto) 11.02 K/uL (1.40-6.50); Neutrophils % (auto) 87.2 %; Platelet Count 152 K/uL (130-400); RDW Coefficient of Variation 13.4 % (11.5-14.5); RDW Standard Deviation 45.4 fL (36.4-46.3); Red Blood Count 4.58 M/uL (4.70-6.10); White Blood Count 12.65 K/ul (4.8-10.8)
--- NOTE | 2024-11-09 03:15 | XRay Report ---
EXAM: XR chest 1V portable CLINICAL HISTORY: CP WTW TECHNIQUE: An X-ray image of the chest is obtained in AP projection. COMPARISON: No prior studies are available for comparison. FINDINGS: Pulmonary Parenchyma: Prominent broncho vascular markings. Lungs are clear bilaterally. No evidence of consolidation, collapse, or focal opacities. No pulmonary nodules are identified. No evidence of pleural effusion or pleural thickening. Heart and Mediastinum: Cardiomegaly. No mediastinal widening or masses. No hilar or mediastinal lymphadenopathy. Bony Thorax: The bony thorax appears intact without fractures or deformities. Soft Tissues: Soft tissues overlying the chest wall are unremarkable. IMPRESSION: Prominent broncho vascular markings. This could represent pulmonary congestion due to cardiac disease. Need clinical correlation. Electronically signed by Cora Duong 11-09-2024 03:15 AM
[2024-11-09 03:17] LABS: Albumin Globulin Ratio 1.2 (0.9-2); Albumin Level 3.9 gm/dl (3.4-5.0); BUN Creatinine Ratio 17.7 (10-20); Bilirubin,Total 1.2 mg/dl (0.2-1.0); Calcium 9.5 mg/dl (8.6-10.3); Creatinine Clr Calc Pharmacy 37.1 ml/min; Globulin 3.3 gm/dl (2.5-4.0); Potassium 4.5 mmol/L (3.5-5.1); Total Protein 7.2 gm/dl (6.0-8.3)
[2024-11-09 03:20] LABS: Troponin I High Sensitivity 17.1 pg/ml (0-20)
[2024-11-09 03:31] LABS: D Dimer 280 ug/L FEU (0-500)
[2024-11-09] MEDS: MoRPHine SULFATE 4 MG/ML 1 ML CARP\\VIAL IV STA (04:17)
[2024-11-09] MEDS: ONDANSETRON INJ 2 MG/ML 2 ML VIAL IV STA (04:17)
--- NOTE | 2024-11-09 05:25 | History & Physical Report ---
Date of Service November 09, 2024 Assessment & Plan (1) Chest pain: Plan: 84-year-old male with past medical history significant for hyperlipidemia, paroxysmal atrial fibrillation, pulmonary hypertension, chronic combined systolic and diastolic CHF, mitral valve insufficiency, mitral valve prolapse, moderate to severe mitral regurgitation, generalized osteoarthritis, gouty arthropathy, tobacco use disorder, who lives at home comes because of chest pain. Patient was watching TV around 10:30 PM he noticed pain all across his chest ,pressure-like feeling 5/10 in severity. It was radiating to left neck and shoulder region. Chest pain was present while ambulating at that time. Around 12:30am at night called ambulance and came to the ER. Currently while resting there is no pain. But when he takes deep breath chest is hurting. Denies any shortness of breath. Has some cough. No fevers. No headache or dizziness. No runny nose or sore throat . No nausea. No sweating. No abdominal pain. Normal bowel and bladder movements. Currently resting co mfortably and hemodynamically stable.Daughters in room. Chest pain Initial workup unremarkable Will follow serial enzymes and echo N.p.o. Observe in med/telemetry Possible pleuritic chest pain because pain is more when taking deep breath CArdiology consult for further recommendation Paroxysmal atrial fibrillation On Eliquis Will monitor SARMAD on CKD stage III Baseline creatinine 1.1 Presented with creatinine 1.4 Will hold Lasix and spironolactone and losartan and monitor Follow repeat labs History of gout On allopurinol Hypertension Holding diuretics and losartan Will monitor Chronic combined systolic and diastolic CHF EF 45 to 49% Has mitral valve prolapse and severe mitral regurgitation, nonsurgical medical management requested by patient per records Holding diuretics We will monitor for volume overload Tobacco use disorder Snuffs tobacco Counseling DVT prophylaxis Eliquis Disposition Observation med/telemetry Full code. History of Present Illness Chief Complaint: Chest pain Primary Care Provider: Susan Webster MD 84-year-old male with past medical history significant for hyperlipidemia, paroxysmal atrial fibrillation, pulmonary hypertension, chronic combined systolic and diastolic CHF, mitral valve insufficiency, mitral valve prolapse, moderate to severe mitral regurgitation, generalized osteoarthritis, gouty arthropathy, tobacco use disorder, who lives at home comes because of chest pain. Patient was watching TV around 10:30 PM he noticed pain all across his chest ,pressure-like feeling 5/10 in severity. It was radiating to left neck and shoulder region. Chest pain was present while ambulating at that time. Around 12:30am at night called ambulance and came to the ER. Currently while resting there is no pain. But when he takes deep breath chest is hurting. Denies any shortness of breath. Has some cough. No fevers. No headache or dizziness. No runny nose or sore throat . No nausea. No sweating. No abdominal pain. Normal bowel and bladder movements. Currently resting com fortably and hemodynamically stable.Daughters in room. Past med history. As mentioned above Past surgical history. Right knee bursectomy and I&D. Kidney stone removal x 2. Social history. she was tobacco 1 can for 3 days started in 1957. Alcohol occasional. No drug use. Family history. Father had skin and bladder cancer. Heart disorder. Mother had diabetes. Sister has diabetes. Sister has hypertension. Allergies Allergy/AdvReac Type Severity Reaction Status Date / Time aspirin Allergy Unknown Verified 05/12/23 03:13 Home Medications Medication Instructions Recorded Confirmed Type apixaban 5 mg tablet (Eliquis) 5 mg PO BID 05/12/23 11/09/24 History cholecalciferol (vitamin D3) 25 25 mcg PO QAM 05/12/23 11/09/24 History mcg (1,000 unit) tablet (Vitamin D3) losartan 25 mg tablet 25 mg PO QAM 05/12/23 11/09/24 History zinc gluconate 50 mg tablet 50 mg PO 3XWK 05/12/23 11/09/24 History allopurinol 100 mg tablet 200 mg PO QAM 11/09/24 11/09/24 History furosemide 20 mg tablet 20 mg PO QAM 11/09/24 11/09/24 History spironolactone 25 mg tablet 12.5 mg PO QAM 11/09/24 11/09/24 History Past Med/Surg History Problem List (Updated 11/09/24 @ 04:26 by Ricky Basilio DO) Afib (Acute) Hyperglycemia (Acute) Severe mitral insufficiency Mitral valve prolapse Chest pain, pleuritic Chest pain (Acute) Septic prepatellar bursitis of right knee (Acute 03/11/14) Medical History (Updated 11/09/24 @ 04:26 by Ricky Basilio DO) Persistent atrial fibrillation Social History Smoking Status: Current every day smoker Tobacco Type: Smokeless Tobacco (Dip or Chew) Hx Alcohol Use: No Hx Substance Use: No Preferred Language: Armenian Communication Ability: Effective Beliefs That Will Affect Care: None Current Living Situation: Alone Feels Safe at Home: Yes Assistive Devices: None Review of Systems Review of Systems: All systems reviewed & are unremarkable except as noted in HPI & below Physical Exam Physical Exam: General- Not in distress Head- atraumatic Eyes- PERRL. ENT- oropharynx clear Neck- supple, no JVD. Lungs- clear to auscultation no wheezing or crackles. Heart- regular rhythm;systolic murmur in mitral area,, no gallop. Abdomen- normal bowel sounds, soft, nontender, no distension. Extremities- trace pretibial edema present, no erythema seen Neuro- alert, oriented PERRL, no facial palsy; no dysarthria; moves extremities. Results & Data Results & Data Vital Signs (Past 12 Hours) Vital Signs Temp Pulse Pulse Resp BP BP Pulse Ox 11/09/24 05:00 71 18 122/77 98 11/09/24 02:54 68 11/09/24 02:45 95 11/09/24 02:35 36.8 C 81 22 138/79 95 11/09/24 02:14 94 O2 Del Method O2 Flow Rate 11/09/24 05:00 Nasal Cannula 2 11/09/24 02:54 11/09/24 02:45 Room Air 11/09/24 02:35 Room Air 11/09/24 02:14 Room Air Diagnostic Findings Laboratory Results WBC 12.65 K/ul (4.8-10.8) H 11/09/24 02:35 RBC 4.58 M/uL (4.70-6.10) L 11/09/24 02:35 Hgb 14.5 g/dl (14.0-18.0) 11/09/24 02:35 Hct 42.4 % (42.0-52.0) 11/09/24 02:35 MCV 92.6 fL (80.0-100.0) 11/09/24 02:35 MCH 31.7 pg (25.0-34.0) 11/09/24 02:35 MCHC 34.2 g/dL (32.0-36.0) 11/09/24 02:35 RDW Std Deviation 45.4 fL (36.4-46.3) 11/09/24 02:35 RDW Coeff of Storm 13.4 % (11.5-14.5) 11/09/24 02:35 Plt Count 152 K/uL (130-400) 11/09/24 02:35 MPV 10.7 fL (9.4-12.4) 11/09/24 02:35 Immature Gran % (Auto) 0.4 % 11/09/24 02:35 Neut % (Auto) 87.2 % 11/09/24 02:35 Lymph % (Auto) 6.7 % 11/09/24 02:35 Towner % (Auto) 5.3 % 11/09/24 02:35 Eos % (Auto) 0.2 % 11/09/24 02:35 Baso % (Auto) 0.2 % 11/09/24 02:35 Neut # (Auto) 11.02 K/uL (1.40-6.50) H 11/09/24 02:35 Lymph # (Auto) 0.85 K/uL (1.20-3.40) L 11/09/24 02:35 Towner # (Auto) 0.67 K/uL (0.11-0.59) H 11/09/24 02:35 Eos # (Auto) 0.03 K/uL (0.00-0.50) 11/09/24 02:35 Baso # (Auto) 0.03 K/uL (0.00-0.20) 11/09/24 02:35 Immature Gran # (Auto) 0.05 K/uL (0.01-0.20) 11/09/24 02:35 D-Dimer 280 ug/L FEU (0-500) 11/09/24 02:40 Sodium 135 mmol/L (136-145) L 11/09/24 02:35 Potassium 4.5 mmol/L (3.5-5.1) 11/09/24 02:35 Chloride 102 mmol/L (98-107) 11/09/24 02:35 Carbon Dioxide 28 mmol/L (21-32) 11/09/24 02:35 Anion Gap 5 (3-11) 11/09/24 02:35 BUN 25 mg/dl (6-23) H 11/09/24 02:35 Creatinine 1.41 mg/dl (0.6-1.4) H 11/09/24 02:35 Est Cr Clr Drug Dosing 37.1 ml/min 11/09/24 02:35 eGFR 49.75 11/09/24 02:35 BUN/Creatinine Ratio 17.7 (10-20) 11/09/24 02:35 Glucose 127 mg/dl (70-99(Fasting)) H 11/09/24 02:35 Calcium 9.5 mg/dl (8.6-10.3) 11/09/24 02:35 Total Bilirubin 1.2 mg/dl (0.2-1.0) H 11/09/24 02:35 AST 23 U/L (13-39) 11/09/24 02:35 ALT 15 U/L (7-52) 11/09/24 02:35 Alkaline Phosphatase 129 U/L (34-104) H 11/09/24 02:35 Troponin I High Sens 17.1 pg/ml (0-20) 11/09/24 02:35 Total Protein 7.2 gm/dl (6.0-8.3) 11/09/24 02:35 Albumin 3.9 gm/dl (3.4-5.0) 11/09/24 02:35 Globulin 3.3 gm/dl (2.5-4.0) 11/09/24 02:35 Albumin/Globulin Ratio 1.2 (0.9-2) 11/09/24 02:35 Lipase 18 U/L (11-82) 11/09/24 02:35 Impressions Chest X-Ray 11/09/24 02:35 EXAM: XR chest 1V portable CLINICAL HISTORY: CP WTW TECHNIQUE: An X-ray image of the chest is obtained in AP projection. COMPARISON: No prior studies are available for comparison. FINDINGS: Pulmonary Parenchyma: Prominent broncho vascular markings. Lungs are clear bilaterally. No evidence of consolidation, collapse, or focal opacities. No pulmonary nodules are identified. No evidence of pleural effusion or pleural thickening. Heart and Mediastinum: Cardiomegaly. No mediastinal widening or masses. No hilar or mediastinal lymphadenopathy. Bony Thorax: The bony thorax appears intact without fractures or deformities. Soft Tissues: Soft tissues overlying the chest wall are unremarkable. IMPRESSION: Prominent broncho vascular markings. This could represent pulmonary congestion due to cardiac disease. Need clinical correlation. Electronically signed by Cora Duong 11-09-2024 03:15 AM ECG Additional Comments: ECG. Atrial fibrillation rate 77. No acute ST changes seen. Code Status & VTE Plan VTE Prophylaxis Plan VTE Prophylaxis will be ordered: Yes (1) Chest pain Chest pain type: unspecified Qualified Code(s): R07.9 - Chest pain, unspecified
[2024-11-09] MEDS ORDERED: ACETAMINOPHEN 325 MG TAB PO PRN (05:37)
[2024-11-09] MEDS ORDERED: NITROGLYCERIN SL 0.4 MG/TAB TAB SL PRN (05:37)
--- OUTSIDE RECORDS SUMMARY | 2024-11-09 08:34 | External Medical Summary | Summary of Care ---
Author Name Unknown Organization [facility] [address] [facility] [address] Phone [phone] Care Team Providers Care Tank Hoop Bender Name Role Phone Susan Webster MD Primary Care Provide r Reason for Visit * Reason Comments Return Visit 6 mo return, no new concerns. Encounter Details Date Type Department Care Team (Late st Contact Info) Description 10/30/2024 10:00 AM EST Office Visit Family Medicine [address] [phone] Susan Webster MD [address] [place] [address] [place] [address] Paroxysmal atrial fibrillation (HCC)*; Moderate to severe mitral regurgitation; Dyslipidemia, goal LDL below 130; Pulmonary hypertension (HCC); Chronic combined systolic and diastolic congestive heart failure (HCC); Gouty arthropathy Allergies Active Allergy Reactions Criticality Noted Date Comments Aspirin High 05/31/2022 Other reaction(s): sick to stomach documented as of this encounter (statuses as of 10/30/2024) Medications Zinc 50 MG Oral Tablet Take 1 Tablet by mouth every other day. Active D3-1000 25 MCG (1000 UT) Oral Tablet (Cholecalciferol) Take 1 Tablet by mouth in the morning. Active Spironolactone 25 MG Oral Tablet (Aldactone) Take 0.5 Tablets by mouth in the morning. 45 Tablet 3 04/09/202 4 Active Furosemide 20 MG Oral Tablet (Lasix)Indications: Heart failure, diastolic, with acute decompensation (HCC) Take 1 Tablet by mouth in the morning. 90 Tablet 3 4 Active Eliquis 5 MG Oral Tablet (Apixaban)Indicatio ns:Paroxysmal atrial fibrillation (HCC) take 1 tablet in the morning and 1 tablet at bedtime 180 Tablet 3 4 Active Losartan Potassium 25 MG Oral Tablet (Cozaar)Indications :Mitral valve prolapse,Frequent PVCs,Permanent atrial fibrillation (HCC),Heart failure, diastolic, with acute decompensation (HCC) TAKE ONE TABLET BY MOUTH IN THE MORNING 90 Tablet 3 4 Active Allopurinol 100 MG Oral Tablet (Zyloprim)Indicatio ns:Gouty arthropathy TAKE TWO TABLETS BY MOUTH IN THE MORNING 180 Tablet 1 4 Active documented as of this encounter (statuses as of 10/30/2024) Active Problems Problem Noted Date Diagnosed Date Pulmonary hypertension 10/30/2024 Chronic combined systolic an d diastolic congestive heart failure 10/30/2024 Mitral valve prolapse 07/28/2021 Moderate to severe mitral regurgitation 07/28/20 21 Gouty arthropathy 07/21/2021 Paroxysmal atrial fibrillation 07/21/2021 Mitral valve insufficiency 07/15/2018 History of nonmelanoma skin cancer 02/28/2015 Overview (07/09/2024): 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 04/10, L preauricular region 02/12, L catholic 05/15, scalp 07/24), 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) Dyslipidemia, goal LDL below 130 02/10/2013 Generalized osteoarthritis 08/29/2010 Tobacco use disorder 08/12/2008 documented as of this encounter (statuses as of 10/30/2024) Resolved Problems Problem Noted Date Diagnosed Date Resolved Date Basal cell carcinoma (BCC) of scalp 10/28/2023 07/09/2024 Chronic kidney disease, stage 3a 08/14/2021 10/30/2024 Overview: Per CKD protocol Lyme disease 07/15/2018 07/16/2019 Mitral valve insufficiency 07/12/2017 0 07/15/2018 Hyperkalemia 02/22/2013 07/05/2015 Heart murmur 09/02/2012 07/05/2015 Other osteoporosis without c urrent pathological fracture 08/30/2011 08/30/2011 Overview (09/24/2017): ICD-10 update of inactive term Family history of ischemic heart disease 08/12/2008 07/05/2015 Family history of diabetes mellitus 08/12/2008 07/05/2015 ADVANCE DIRECTIVE INFORMATION 09/19/2006 10/05/2024 Overview (09/19/2006): Yes, Patient instructed to provide copy of advance directive for provider to review and to be scanned into Electronic Medical Record Malignant neoplasm of skin of parts of face 03/18/2018 Overview (02/23/2016): ICD-10 update of inactive term Mitral regurgitation 018 documented as of this encounter (statuses as of 10/30/2024) Immunizations Name Administration Dates Next Due COVID-19 mRNA, LNP-s, No Pre serve, 2-Dose Series (Moderna) 10/09/2021,01/23/2021,12/22/2020 COVID-19, MRNA-LNP, PF, 30 M CG/0.3 mL, 12 YRS AND ABOVE, IM (PFIZER-Comirnaty) 09/01/2024 COVID-19, MRNA-LNP, PF, 50 M CG/0.5 mL, 12 YRS AND ABOVE, IM (MODERNA-Spikevax) 09/12/2023 Covid-19, Mrna, Lnp-s, Pf, B ivalent, 50 Mcg, IM, 12 yrs and above (Moderna) 08/27/2022 H1N1 2009 Influenza, IM 01/09/2010 Pneumococcal Conjugate Vacc, 13 Valent (Prevnar) 07/05/2015 Pneumococcal Polysaccharide PPV23 (Pneumovax) 08/12/2008 Season Influenza, Quad, PF, Adjuvanted, 65+ Yrs, IM (FLUAD) 08/24/2020 Seasonal Influenza Vac., MDV , IM, 0.5 mL (Fluzone) 08/31/2014,08/19/2013,09/02/2012,08/30,08/29/2010,08/30/2009,09/22/2008 ,09/23/2002 Seasonal Influenza, High Dos e, Trivalent, PF, IM (Fluzone HD) 09/01/2024 Seasonal Influenza, PF, 6 M & above, IM , (FluLaval or Fluzone) 08/19/2018 Seasonal Influenza, Quadriva lent Hd (Fluzone Hd) 09/12/2023,09/12/2021 Seasonal Influenza, Quadriva lent, No Preserve, IM 08/09/2017,09/24/2015 Seasonal Influenza, Trivalen t, Adjuvanted, 65+ YRS, PF, (Fluad) 08/27/2022,08/31/2019 TD, Preservative Free 08/12/2008 TDAP (age 10 and older)(Boostrix) 08/24/2020 Varicella Zoster Vaccine (Adult) 07/22/2013 Zoster Vaccine Recombinant (Shingrix) 12/14/2019 ,10/12/2019 documented as of this encounter Social History Tobacco Use Types Packs/Day Years Used Date Smoking Tobacco: Never Smokeless Tobacco: Current Chew, Snuff Comments:1 can per 3 days, s tarted in 1956 Alcohol Use Standard Drinks/Week Comments Yes 0.8 (1 standard drink = 0.6 oz p ure alcohol) occasionally PHQ-2 Answer Date Recorded PHQ Adult Total Score 0 09/12/2022 Hunger Vital Sign Answer Date Recorded Within the past 12 months, y ou worried that your food would run out before you got the money to buy more. Never true 09/12/20 22 Within the past 12 months, t he food you bought just didn't last and you didn't have money to get more. Never true 09/12/2022 Sex and Gender Information Value Date Recorded Sex Assigned at Male 09/30/2019 12:31 PM EDT Legal Sex Male 5:26 AM EST Gender Identity Male 09/30/2019 12:31 PM EDT Sexual Orientation Straight 04/23/2022 10 :03 AM EDT Occupation Industry Job Start Date Job End Date Not on file Not on file Not on file Not on file documented as of this encounter Last Filed Vital Signs Vital Sign Reading Time Taken Comments Blood Pressure 116/64 10/30/2024 9:46 AM EST Pulse 67 10/30/2024 9:46 AM EST Temperature 36.4 C (97.5 F) 10/30/2024 9:46 AM ES T Respiratory Rate - - Oxygen Saturation 99% 10/30/2024 9:46 AM EST Inhaled Oxygen Concentration - - Weight 74.4 kg (164 lb) 10/30/2024 9:46 AM EST Height 165.1 cm (5' 5") 10/30/2024 9:46 AM EST Body Mass Index 27.29 10/30/2024 9:46 AM EST documented in this encounter Progress Notes * Susan Webster MD - 10/30/2024 9:51 AM EST Subjective: Rafy Stout Jr. is a 84 year old male. Chief Complaint Patient presents with Return Visit 6 mo return, no new concerns. HPI: Brief Clinical History Mr. Stout is a 84 year old male last seen in Family Medicine [facility] on 04/28/2024 by Britta Rojas He has a h/o the following chronic conditions indicated on the problem list: Chronic Conditions Paroxysmal atrial fibrillation (HCC) Has been splitting [employer]. Has a log splitter. He did get short of breath pushing two wheelbarrowloads of firewood but improved quickly with rest. No palpitations. Has had a few short 30-second episodes of chest pain. Heart used to race a lot but does not do that anymore. Follows with cardiology. Last echo showed EF 45-49% and grade 3 diastolic dysfunction. Occasionallyhas some mild leg swelling. Denies shortness of breath other than with heavy activity or walking fast up a hill. No problems with Eliquis. No bleeding or bruising. Got his flu shot and COVID booster the first week of September at [facility]. Results for orders placed or performed in visit on 04/20/24 COMPREHENSIVE METABOLIC PANEL Result Value Ref Range BUN 21 (H) 6 - 20 mg/dL CREATININE 1.1 0.6 - 1.2 mg/dL EGFR 66 >=60 mL/min SODIUM 138 135 - 146 mmol/L POTASSIUM 4.8 3.5 - 5.1 mmol/L CHLORIDE 100 98 - 107 mmol/L CO2 26 22 - 32 mmol/L ANION GAP 12 7 - 15 mmol/L GLUCOSE 114 70 - 120 mg/dL Albumin 4.1 3.8 - 5.0 g/dL AST 28 10 - 50 U/L Alkaline Phosphatase 193 (H) 35 - 130 U/L Bilirubin, Total 0.7 <=1.2 mg/dL CALCIUM 9.9 8.4 - 10.2 mg/dL Protein 6.7 6.0 - 8.3 g/dL ALT 19 10 - 50 U/L EHRLICHIA CHAFFEENSIS ANTIBODIES (IGG,IGM) Result Value Ref Range E. Chaffeensis AB IGG <1:64 <1:64 E. Chaffeensis AB IGM <1:20 <1:20 Interpretation SEE BELOW Comment SEE BELOW BABESIA MICROTI ANTIBODIES (IGG,IGM) Result Value Ref Range Babesia Microti AB (IGG) <1:64 <1:64 Babesia Microti AB (IGM) <1:20 <1:20 Interpretation SEE BELOW LYME DISEASE ANTIBODY SCREEN Result Value Ref Range Lyme Disease Antibody Screen Positive (A) Negative LYME DISEASE IGM/IGG CONFIRMATION Result Value Ref Range Lyme IgM Confirmation Negative Negative Lyme IgG Confirmation Positive (A) Negative Interpretation PHM: Patient Active Problem List Diagnosis Tobacco use disorder Generalized osteoarthritis Dyslipidemia, goal LDL below 130 History of nonmelanoma skin cancer Mitral valve insufficiency Gouty arthropathy Paroxysmal atrial fibrillation (HCC) Mitral valve prolapse Moderate to severe mitral regurgitation Pulmonary hypertension (HCC) Chronic combined systolic and diastolic congestive heart failure (HCC) Current Outpatient Medications Medication Sig Dispense Refill Zinc 50 MG Oral Tablet Take 1 Tablet by mouth every other day. D3-1000 25 MCG (1000 UT) Oral Tablet (Cholecalciferol) Take 1 Tablet by mouth in the morning. Spironolactone 25 MG Oral Tablet (Aldactone) Take 0.5 Tablets by mouth in the morning. 45 Tablet 3 Furosemide 20 MG Oral Tablet (Lasix) Take 1 Tablet by mouth in the morning. 90 Tablet 3 Eliquis 5 MG Oral Tablet (Apixaban) take 1 tablet in the morning and 1 tablet at bedtime 180 Tablet3 Losartan Potassium 25 MG Oral Tablet (Cozaar) TAKE ONE TABLET BY MOUTH IN THE MORNING 90 Tablet 3 Allopurinol 100 MG Oral Tablet (Zyloprim) TAKE TWO TABLETS BY MOUTH IN THE MORNING 180 Tablet 1 No current facility-administered medications for this visit. Past Medical History: Diagnosis Date Lyme disease 07/15/2018 Mitral regurgitation 2012 moderate to severe Other and unspecified malignant neoplasm of skin of other and unspecified parts of face Renal stone 1970s 2 surgeries Past Surgical History: Procedure Laterality Date MISCELLANEOUS ORDER ([facility] ONLY) Right 03/2014 knee bursectomy and I&D OTHER 1969 kidney stone removal.x2 Social History Socioeconomic History Marital status: Spouse name: Not on file Number of children: 5 Years of education: Not on file Highest education level: Not on file Occupational History Employer: [employer] Comment: self employed Tobacco Use Smoking status: Never Smokeless tobacco: Current Types: Chew, Snuff Tobacco comments: 1 can per 3 days, started in 1956 Vaping Use Vaping status: Never Used Substance and Sexual Activity Alcohol use: Yes Alcohol/week: 0.8 standard drinks of alcohol Types: 1 12 oz of beer per week Comment: occasionally Drug use: No Sexual activity: Yes Partners: Female Other Topics Concern Not on file Social History Narrative 2019 Social Needs Financial Resource Strain: Not on file Food Insecurity: No Food Insecurity (09/12/2022) Hunger Vital Sign Worried About Running Out of Food in the Last Year: Never true Ran Out of Food in the Last Year: Never true Transportation Needs: Not on file Social Connections: Not on file Housing Stability: Not on file Review of patient's allergies indicates: Allergen Reactions Aspirin Other reaction(s): sick to stomach Objective: BP 116/64 | Pulse 67 | Temp 97.5 F (36.4 C) (Infrared ) | Ht 5' 5" (1.651 m) | Wt 164 lb (74.4 kg) | SpO2 99% | BMI 27.29 kg/m | BSA 1.85 m Physical Exam: General: alert, healthy, no distress, well nourished, and well developed Head: Normocephalic, No masses, lesions, tenderness or abnormalities Eye Exam: PERRLA, extraocular movements intact, conjunctiva are pink and non- injected, sclera clear Ears: External ears normal, Canals clear, TM's Normal Nose: no mucosal erythema, no mucosal edema, no purulent discharge Oropharynx: no exudate, no erythema, lips, buccal mucosa, and tongue normal, and mucous membranes are moist Neck: supple, no adenopathy, no bruits Heart: no murmur, no gallops, and irregularly irregular Lungs: chest symmetric with normal AP diameter, no chest deformities noted, no chest wall tenderness, lungs clear to auscultation Extremities: no clubbing, no cyanosis, trace lower extremity edema bilaterally Neuro Exam: alert & oriented x 3 with fluent speech, no focal motor/sensory deficits Extensive ROS Constitutional (f/c/wt/vision/hearing): Negative Resp (cough/sob/sebastian): Negative CV (cp/palp/fluttering/diaphoresis/sebastian/pnd):see above hpi GI (n/v/d/hrtburn): Negative Endo (hair/cold or heat intol/ 3 p's): Negative Neuro (shaking/weak/fatigu/parasthesi/): Negative Skin (rash/easy bruis/xerosis): _h/o non-melanoma skin cancer Psy (si/hi/halluc/): Negative (nocturia/hesit/drib/sexual review): Negative Lymph (swollen glands/b sx's/: Negative ASSESSMENT: Paroxysmal atrial fibrillation (HCC) (Primary)--rate controlled with rate slowing medications. Continue Eliquis 5 mg twice daily. - BASIC METABOLIC PANEL; Future; Expected date: 04/29/2025 Moderate to severe mitral regurgitation--stable. Likely contributes to SEBASTIAN. Dyslipidemia, goal LDL below 130--stable. Check labs at next visit. - LIPID PANEL WITH DIRECT LDL IF TG IS HIGH; Future; Expected date: 04/29/2025 Pulmonary hypertension (HCC)--likely contributes to SEBASTIAN. Chronic combined systolic and diastolic congestive heart failure (HCC)--appears euvolemic with stable, mild SEBASTIAN. Continue furosemide 20 mg daily and spironolactone 12.5 mg daily. - BASIC METABOLIC PANEL; Future; Expected date: 04/29/2025 Gouty arthropathy--uric acid at goal with allopurinol 100 mg twice daily. No recent gout flares. - URIC ACID; Future; Expected date: 04/29/2025 Follow Up: Return in about 6 months (around 04/29/2025) for Clinic Visit. | For: Clinic Visit PLAN: Continue present medication(s): Schedule labs: BMP, lipid panel, and uric acid at next visit Patient education: Discussed taking rests as needed during activity. Has combined CHF and pulmonaryhypertension but remains very active. Has been splitting and hauling loads of firewood. Follow up: in 6 month(s). Susan Webster MD documented in this encounter Nursing Notes * Avery Silva CMA - 10/30/2024 9:45 AM EST The patient has been properly identified by confirmation of name and date of . Chief Complaint Patient presents with Return Visit 6 mo return, no new concerns. documented in this encounter Plan of Treatment Upcoming Encounters Date Type Department Care Team (Late st Contact Info) Description 01/21/2025 9:30 AM EST Office Visit Cardiology [address] [place] [address] Jerad Bashir PA-C [address] [place] [phone] 04/29/2025 10:00 AM EDT Laboratory Laboratory [address] [place] [phone] [facility] [address] [place] [address] 05/07/2025 2:20 PM EDT Office Visit Family Medicine [address] [place] [phone] Susan Webster MD [address] [place] [address] [place] [phone] 07/21/2025 8:20 AM EDT Office Visit Dermatology [address] [place] [address] Breanna Alejandro PA-C [address] [place] [address] [place] [address] Scheduled Orders Name Type Priority Associated Diagnoses Orde r Schedule BASIC METABOLIC PANEL Lab Routine Paroxysmal atrial fibrillation (HCC) Chronic combined systolic and diastolic congestive heart failure (HCC) Expected: 04/29/2025 (Approximate), Expires: 10/30/2025 URIC ACID Lab Routine Gouty arthropathy Expected: 04/29/2025 (Approximate), Expires: 10/30/2025 LIPID PANEL WITH DIRECT LDL IF TG IS HIGH Lab Routine Dyslipidemia, goal LDL below 130 Expected: 04/29/2025 (Approximate), Expires: 10/30/2025 Health Maintenance Due Date Last Done Comments Adult Wellness Visit 09/12/2023 09/12/2022 Depression Screening 09/12/2023 09/12/2022 DTap/Tdap Vaccines (2 - Td or Tdap) 08/24/2030 08/24/2020, 08/12/2008 Pneumococcal Vaccine: 65+ Years Completed 07/05/2015, 08/12/2008 Zoster Vaccines Completed 12/14/2019, 10/02, 07/22/2013 Albumin/Creatinine Ratio Discontinued 023, 09/12/2022, 10/25/2021 COVID-19 Vaccine Completed 09/01/2024, 11/2023, 08/27/2022, Additional history exists Influenza Vaccine (FLU shot) Completed 09/01/2024, 09/12/2023, 08/27/2022, Additional history exists HPV (Gardasil) Vaccine Aged Out No lo nger eligible based on patient's age to complete this topic Hepatitis B Vaccine Aged Out No longe r eligible based on patient's age to complete this topic MENINGOCOCCAL (MENACTRA/MENVEO) Aged Out No longer eligible based on patient's age to complete this topic documented as of this encounter Medical Devices Not on filedocumented as of this encounter Visit Diagnoses Diagnosis Paroxysmal atrial fibrillation (HCC)- Primary Atrial fibrillation Moderate to severe mitral regurgitation Dyslipidemia, goal LDL below 130 Other and unspecified hyperlipidemia Pulmonary hypertension (HCC) Other chronic pulmonary heart diseases Chronic combined systolic and diastolic congestive heart failure (HCC) Chronic combined systolic and diastolic heart failure Gouty arthropathy Gouty arthropathy, unspecified documented in this encounter Care Teams Tank Hoop Bender Relationship Specialty Start Date End Date Susan Webster MD [address] [place] [address] [place] [address] PCP - General Family Medicine 07/05/15 documented as of this encounter
--- OUTSIDE RECORDS SUMMARY | 2024-11-09 08:34 | External Medical Summary | Summary of Care ---
Author Name Unknown Organization [facility] Address [address] [facility] [facility] [place] [address] Phone [phone] Care Team Providers Care Sustainable Design Coordinator Name Role Phone Susan Webster MD Primary Care Provide r Reason for Visit * Reason Onset Date Comments Health Maintenance 10/22/2024 Encounter Details Date Type Department Care Team (Late st Contact Info) Description 10/22/2024 Telephone Family Medicine [address] [phone] Susan Webster MD [address] [place] [address] [place] [address] Health Maintenance Allergies Active Allergy Reactions Criticality Noted Date Comments Aspirin High 05/31/2022 Other reaction(s): sick to stomach documented as of this encounter (statuses as of 10/22/2024) Medications Zinc 50 MG Oral Tablet Take 1 Tablet by mouth every other day. Active D3-1000 25 MCG (1000 UT) Oral Tablet (Cholecalciferol) Take 1 Tablet by mouth in the morning. Active Spironolactone 25 MG Oral Tablet (Aldactone) Take 0.5 Tablets by mouth in the morning. 45 Tablet 3 4 Active Furosemide 20 MG Oral Tablet [...] as of this encounter (statuses as of 10/22/2024) Active Problems Problem Noted Date Diagnosed Date Chronic kidney disease, stage 3a 08/14/2021 Overview: Per CKD protocol Mitral valve prolapse 07/28/2021 Moderate to severe mitral regurgitation 07/28/20 Gouty arthropathy 07/21/2021 Paroxysmal atrial fibrillation 07/21/2021 Mitral valve insufficiency 07/15/2018 History of nonmelanoma skin cancer 02/28/2015 Overview (07/09/2024): 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 04/10, L preauricular region 02/12, L buddhism 05/15, scalp 07/24), 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) Dyslipidemia, goal LDL below 130 02/10/2013 Generalized osteoarthritis 08/29/2010 Tobacco use disorder 08/12/2008 documented as of this encounter (statuses as of 10/22/2024) Resolved Problems Problem Noted Date Diagnosed Date Resolved Date Basal cell carcinoma (BCC) of scalp 10/28/2023 07/09/2024 Lyme disease 07/15/2018 07/16/2019 Mitral valve insufficiency [...] as of this encounter (statuses as of 10/22/2024) Immunizations Name Administration Dates Next Due COVID-19 mRNA, LNP-s, No Pre serve, 2-Dose Series (Moderna) 10/09/2021,01/23/2021,12/22/2020 Covid-19, Mrna, Lnp-s, Pf, B ivalent, 50 Mcg, IM, 12 yrs and above (Moderna) 08/27/2022 H1N1 2009 Influenza, IM 01/09/2010 Pneumococcal Conjugate Vacc, 13 Valent (Prevnar) 07/05/2015 Pneumococcal Polysaccharide PPV23 (Pneumovax) 08/12/2008 Season Influenza, Quad, PF, Adjuvanted, 65+ Yrs, IM (FLUAD) 08/24/2020 Seasonal Influenza Vac., MDV , IM, 0.5 mL (Fluzone) 08/31/2014,08/19/2013,09/02/2012,08/30,08/29/2010,08/30/2009,09/22/2008 Seasonal Influenza, PF, 6 M & above, IM , (FluLaval or Fluzone) 08/19/2018 Seasonal Influenza, Quadriva lent Hd (Fluzone Hd) 09/12/2021 Seasonal Influenza, Quadriva lent, No Preserve, IM [...] on file documented as of this encounter Miscellaneous Notes * Telephone Encounter - Adrienne Conroy LPN - 10/22/2024 10:50 AM EST Care Gaps Comprehensive Care Outreach Last Office/Telemedicine Visit: 04/28/2024 (in office), Visit date not found (telemedicine) Next Office Visit: 10/30/2024 Hemoglobin AIC Results: No results found for: "HEMOGLOBIN A1C" BP Readings from Last 1 Encounters: 07/07/24 108/64 Reviewed Health Maintenance below: Health Maintenance Topic Date Due Depression Screening 09/12/2023 Adult Wellness Visit 09/12/2023 Influenza Vaccine (FLU shot) (1) 08/02/2024 COVID-19 Vaccine ( season) 2024 GFR 10/21/2024 Albumin/Creatinine Ratio 10/22/2024 CKD PHOS USE SMARTSET [id number] 10/22/2024 Labs awv Care Gap Outreach Action Taken: Left message documented in this encounter Plan of Treatment Upcoming Encounters Date Type Department Care Team (Late st Contact Info) Description 10/30/2024 10:00 AM EST Office Visit Family Medicine [address] [place] [phone] Susan Webster MD [address] [place] [address] [place] [phone] 01/21/2025 9:30 AM EST Office Visit Cardiology [address] [place] [address] Jerad Bashir PA-C [address] [place] [phone] 07/21/2025 8:20 AM EDT Office Visit Dermatology [address] [place] [address] Breanna Alejandro PA-C [address] [place] [address] [place] [address] Health Maintenance Due Date Last Done Comments Adult Wellness Visit 09/12/2023 09/12/2022 Depression Screening 09/12/2023 09/12/2022 COVID-19 Vaccine ( season) 2024 09/12/2023, 08/27/2022, 10/09/2021, Additional history exists Influenza Vaccine (FLU shot) (#1) 2024 09/12/2023, 08/27/2022, 08/27/2022, Additional history exists GFR 10/21/2024 04/20/2024, 03/02, 02/18/2024, Additional history exists Albumin/Creatinine Ratio 10/22/2024 023, 09/12/2022, 10/25/2021 CKD PHOS USE SMARTSET [id number] 10/22/202410/03, 09/07/2022, 10/23/2021 CKD HGB USE SMARTSET [id number] 02/17/202502/17, 11/29/2022, 09/07/2022, Additional history exists DTap/Tdap Vaccines (2 - Td or Tdap) 08/24/2030 08/24/2020, 08/12/2008 Pneumococcal Vaccine: 65+ Years Completed 07/05/2015, 08/12/2008 Zoster Vaccines Completed 12/14/2019, 10/02, 07/22/2013 HPV (Gardasil) Vaccine Aged Out No lo nger eligible based on patient's age to complete this topic Hepatitis B Vaccine Aged Out No longe r eligible based on patient's age to complete this topic MENINGOCOCCAL (MENACTRA/MENVEO) Aged Out No longer eligible based on patient's age to complete this topic documented as of this encounter Medical Devices Not on filedocumented as of this encounter Care Teams Sustainable Design Coordinator Relationship Specialty Start Date End Date Susan Webster MD [address] [place] [address] [place] [address] PCP - General Family Medicine 07/05/15 documented as of this encounter
--- OUTSIDE RECORDS SUMMARY | 2024-11-09 08:34 | External Medical Summary | Summary of Care ---
Author Name Unknown Organization [facility] Address [address] [facility] [place] [address] Phone [phone] Care Team Providers Care Pole Maker Name Role Phone Susan Webster MD Primary Care Provide r Encounter Details Date Type Department Care Team (Late st Contact Info) Description 09/01/2024 Orders Only PATIENT PORTAL DO NOT DELETE THIS DEPT USED BY [place] [id number] Allergies Active Allergy Reactions Criticality Noted Date Comments Aspirin High 05/31/2022 Other reaction(s): sick to stomach documented as of this encounter (statuses as of 09/01/2024) Medications Medication Sig Dispensed Refills Start Date End Date Status Zinc 50 MG Oral Tablet Take 1 Tablet by mouth every other day. Active D3-1000 25 MCG (1000 UT) Oral Tablet (Cholecalciferol) Take 1 Tablet by mouth in the morning. Active Spironolactone 25 MG Oral Tablet (Aldactone) Take 0.5 Tablets by mouth in the morning. 45 Tablet 3 03/10/2024 Active Furosemide 20 MG Oral Tablet (Lasix)Indications:Hea rt failure, diastolic, with acute decompensation (HCC) Take 1 Tablet by mouth in the morning. 90 Tablet 3 03/10/2024 Active Eliquis 5 MG Oral Tablet (Apixaban)Indications: Paroxysmal atrial fibrillation (HCC) take 1 tablet in the morning and 1 tablet at bedtime 180 Tablet 3 04/16/2024 Active Losartan Potassium 25 MG Oral Tablet (Cozaar)Indications:Mi tral valve prolapse,Frequent PVCs,Permanent atrial fibrillation (HCC),Heart failure, diastolic, with acute decompensation (HCC) TAKE ONE TABLET BY MOUTH IN THE MORNING 90 Tablet 3 04/16/2024 Active Allopurinol 100 MG Oral Tablet (Zyloprim)Indications: Gouty arthropathy TAKE TWO TABLETS BY MOUTH IN THE MORNING 180 Tablet 1 08/28/2024 Active documented as of this encounter (statuses as of 09/01/2024) Active Problems Problem Noted Date Diagnosed Date Chronic kidney disease, stage 3a 08/14/2021 Overview: Per CKD protocol Mitral valve prolapse 07/28/2021 Moderate to severe mitral regurgitation 07/28/20 Gouty arthropathy 07/21/2021 Paroxysmal atrial fibrillation 07/21/2021 Mitral valve insufficiency 07/15/2018 History of nonmelanoma skin cancer 02/28/2015 Overview: 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 04/10, L preauricular region 02/12, L mormonism 05/15, scalp 07/24), 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) Dyslipidemia, goal LDL below 130 02/10/2013 Generalized osteoarthritis 08/29/2010 Tobacco use disorder 08/12/2008 ADVANCE DIRECTIVE INFORMATION 09/19/2006 Overview: Yes, Patient instructed to provide copy of advance directive for provider to review and to be scanned into Electronic Medical Record documented as of this encounter (statuses as of 09/01/2024) Resolved Problems Problem Noted Date Diagnosed Date Resolved Date Basal cell carcinoma (BCC) of scalp 10/28/2023 07/09/2024 Lyme disease 07/15/2018 07/16/2019 Mitral valve insufficiency 07/12/2017 0 07/15/2018 Hyperkalemia 02/22/2013 07/05/2015 Heart murmur 09/02/2012 07/05/2015 Other osteoporosis without c urrent pathological fracture 08/30/2011 08/30/2011 Overview: ICD-10 update of inactive term Family history of ischemic heart disease 08/12/2008 07/05/2015 Family history of diabetes mellitus 08/12/2008 07/05/2015 Malignant neoplasm of skin of parts of face 03/18/2018 Overview: ICD-10 update of inactive term Mitral regurgitation 018 documented as of this encounter (statuses as of 09/01/2024) Immunizations Name Administration Dates Next Due COVID-19 mRNA, LNP-s, No Pre serve, 2-Dose Series (Moderna) 10/09/2021,01/23/2021,12/22/2020 Covid-19, Mrna, Lnp-s, Pf, B ivalent, 50 Mcg, IM, 12 yrs and above (Moderna) 08/27/2022 H1N1 2009 Influenza, IM 01/09/2010 Pneumococcal Conjugate Vacc, 13 Valent (Prevnar) 07/05/2015 Pneumococcal Polysaccharide PPV23 (Pneumovax) 08/12/2008 Season Influenza, Quad, PF, Adjuvanted, 65+ Yrs, IM (FLUAD) 08/24/2020 Seasonal Influenza, PF, 6 M & above, IM , (FluLaval or Fluzone) 08/19/2018 Seasonal Influenza, Quadriva lent Hd (Fluzone Hd) 09/12/2021 Seasonal Influenza, Quadriva lent, No Preserve, IM 08/09/2017,09/24/2015 Seasonal Influenza, Trivalen t, (IIV3), with Preserv, (Fluzone) 08/31/2014,08/19/2013,09/02/2012,08/30,08/29/2010,08/30/2009,09/22/2008 Seasonal Influenza, Trivalen t, Adjuvanted, 65+ YRS, PF, (Fluad) 08/27/2022,08/31/2019 TD, Preservative Free 08/12/2008 TDAP (age 10 and older)(Boostrix) 08/24/2020 Varicella Zoster Vaccine (Adult) 07/22/2013 Zoster Vaccine Recombinant (Shingrix) 12/14/2019 ,10/12/2019 documented as of this encounter Social History Tobacco Use Types Packs/Day Years Used Date Smoking Tobacco: Never Smokeless Tobacco: Current Chew, Snuff Comments:1 can per 3 days, s tarted in 1957 Alcohol Use Standard Drinks/Week Comments Yes 0.8 [...] money to get more. Never true 09/12/2022 Utilities Answer Date Recorded Do you have trouble paying y our heating, water, or electric bill? (Adult - for ages 18 years and over) Not on file 05/19/2024 Is your family able to pay t he heat, water, or electric bill? (Household - for ages 0-17 years) Not on file 05/19/2024 Does your family have access to good internet? (Household - for ages 0-17 years) Not on file 05/19/2024 Social Connections Answer Date Recorded How often do you feel lonely or isolated from those around you? (Adult - for ages 18 years and over) Not on file 05/19/2024 Sex and Gender Information Value Date Recorded Sex Assigned at Male 09/30/2019 12:31 PM EDT Gender Identity Male 09/30/2019 12:31 PM EDT Sexual Orientation Straight 04/23/2022 10 :03 AM EDT Job Start Date Occupation Industry Not on file Not on file Not on file documented as of this encounter Plan of Treatment Upcoming Encounters Date Type Department Care Team (Late st Contact Info) Description 10/30/2024 10:00 AM EST Office Visit Family Medicine [address] [place] [phone] Susan Webster MD [address] [place] [address] [place] [phone] 01/21/2025 9:30 AM EST Office Visit Cardiology [address] [place] [address] Jerad Bashir PA-C [address] [place] [phone] 07/21/2025 8:20 AM EDT Office Visit Dermatology [address] [place] [address] Breanna Alejandro PA-C [address] [place] [address] [place] [address] Health Maintenance Due Date Last Done Comments Adult Wellness Visit 09/12/2023 09/12/2022 Depression Screening 09/12/2023 09/12/2022 COVID-19 Vaccine ( season) 2024 09/12/2023, 08/27/2022, 10/09/2021, Additional history exists Influenza Vaccine (FLU shot) (#1) 2024 09/12/2023, 08/27/2022, 08/27/2022, Additional history exists GFR 10/21/2024 04/20/2024, 03/02, 02/18/2024, Additional history exists Albumin/Creatinine Ratio 10/22/2024 023, 09/12/2022, 10/25/2021 CKD PHOS USE SMARTSET [id number] 10/22/202410/03, 09/07/2022, 10/23/2021 CKD HGB USE SMARTSET [id number] 02/17/202502/17, 11/29/2022, 09/07/2022, Additional history exists DTap/Tdap [...] filedocumented as of this encounter Care Teams Pole Maker Relationship Specialty Start Date End Date Susan Webster MD [address] [place] [address] [place] [address] PCP - General Family Medicine 07/05/15 documented as of this encounter
--- OUTSIDE RECORDS SUMMARY | 2024-11-09 08:34 | External Medical Summary | Summary of Care ---
Author Name Unknown Organization [facility] [address] [facility] [address] Phone [phone] Care Team Providers Care Radiagraph Operator Name Role Phone Susan Webster MD Primary Care Provide r Reason for Visit * Reason Comments Return Visit 6 mo return, no new concerns. Encounter Details Date Type Department Care Team (Late st Contact Info) Description 10/30/2024 10:00 AM EST Office Visit Family Medicine [address] [phone] Susan Webster MD [address] [place] [address] [place] [address] Paroxysmal atrial fibrillation (HCC)*; Moderate to [...] tip 04/10, L preauricular region 02/12, L shinto 05/15, scalp 07/24), squamous cell carcinoma in [...] CG/0.3 mL, 12 YRS AND ABOVE, IM (PFIZER-Comirnat) 09/01/2024 Covid-19, Mrna, Lnp-s, Pf, B ivalent, 50 Mcg, IM, 12 yrs and above (Moderna) 08/27/2022 H1N1 2009 Influenza, IM 01/09/2010 Pneumococcal Conjugate Vacc, 13 Valent (Prevnar) 07/05/2015 Pneumococcal Polysaccharide PPV23 (Pneumovax) 08/12/2008 Season Influenza, Quad, PF, Adjuvanted, 65+ Yrs, IM (FLUAD) 08/24/2020 Seasonal Influenza Vac., MDV , IM, 0.5 mL (Fluzone) 08/31/2014,08/19/2013,09/02/2012,08/30,08/29/2010,08/30/2009,09/22/2008 Seasonal Influenza, High Dos e, Trivalent, PF, [...] old male last seen in Family Medicine [facility] on 04/28/2024 by Britta Rojas He has a h/o the following chronic conditions indicated on the problem list: Chronic Conditions Paroxysmal atrial fibrillation (HCC) Has been splitting firewood. Has a log splitter. He did get [...] booster the first week of September at [facility]. Results for orders placed or [...] Surgical History: Procedure Laterality Date MISCELLANEOUS ORDER ([facility] ONLY) Right 03/2014 knee bursectomy [...] 1 can per 3 days, started in 1957 Vaping Use Vaping status: Never Used Substance [...] 01/21/2025 9:30 AM EST Office Visit Cardiology [address] [place] [address] Jerad Bashir PA-C [address] [place] [phone] 04/29/2025 10:00 AM EDT Laboratory Laboratory [address] [place] [phone] [facility] [address] [place] [address] 05/07/2025 2:20 PM EDT Office Visit Family Medicine [address] [place] [phone] Susan Webster MD [address] [place] [address] [place] [address] 07/21/2025 8:20 AM EDT Office Visit Dermatology [address] [place] [address] Breanna Alejandro PA-C [address] [place] [address] [place] [address] Scheduled Orders Name Type Priority Associated Diagnoses [...] unspecified documented in this encounter Care Teams Radiagraph Operator Relationship Specialty Start Date End Date Susan Webster MD [address] [place] [address] [place] [address] PCP - General Family Medicine 07/05/15 documented as of this encounter
--- OUTSIDE RECORDS SUMMARY | 2024-11-09 08:34 | External Medical Summary | Summary of Care ---
Author Name Unknown Organization [facility] [address] [facility] [address] Phone [phone] Care Team Providers Care Home Teaching Grades 9 Thru 12 Teacher Name Role Phone Susan Webster MD Primary Care Provide r Reason for Visit * Reason Comments eRx-Medication Refill Encounter Details Date Type Department Care Team (Late st Contact Info) Description 08/27/2024 Refill Family Medicine [address] [phone] Susan Webster MD [address] [place] [address] [place] [address] Gouty arthropathy; Chronic kidney disease, stage 3a (HCC) Allergies Active Allergy Reactions Criticality Noted Date Comments Aspirin High 05/31/2022 Other reaction(s): sick to stomach documented as of this encounter (statuses as of 08/28/2024) Medications Medication Sig Dispensed Refills Start Date [...] 03/10/2024 Active Furosemide 20 MG Oral Tablet (Lasix)Indications:H eart failure, diastolic, with acute decompensation (HCC) Take 1 Tablet by mouth in the morning. 90 Tablet 3 03/10/2024 Active Eliquis 5 MG Oral Tablet (Apixaban)Indication s:Paroxysmal atrial fibrillation (HCC) take 1 tablet in the morning and 1 tablet at bedtime 180 Tablet 3 04/16/2024 Active Losartan Potassium 25 MG Oral Tablet (Cozaar)Indications: Mitral valve prolapse,Frequent PVCs,Permanent atrial fibrillation (HCC),Heart failure, diastolic, with acute decompensation (HCC) TAKE ONE TABLET BY MOUTH IN THE MORNING 90 Tablet 3 04/16/2024 Active Allopurinol 100 MG Oral Tablet (Zyloprim)Indication s:Gouty arthropathy TAKE TWO TABLETS BY MOUTH IN THE MORNING 180 Tablet 1 08/28/2024 Active Allopurinol 100 MG Oral Tablet (Zyloprim)Indication s:Gouty arthropathy take 2 tablets in the morning. 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) Dyslipidemia, goal LDL below 130 02/10/2013 Generalized osteoarthritis 08/29/2010 Tobacco use disorder 08/12/2008 ADVANCE DIRECTIVE INFORMATION 09/19/2006 Overview: Yes, Patient instructed to provide copy of advance directive for provider to review and to be scanned into Electronic Medical Record documented as of this encounter (statuses as of 08/28/2024) Resolved Problems Problem Noted Date Diagnosed Date [...] as of this encounter (statuses as of 08/28/2024) Immunizations Name Administration Dates Next Due COVID-19 [...] Trivalen t, (IIV3), with Preserv, (Fluzone) 08/31/2014,08/19/2013,09/02/2012,08/30,08/29/2010,08/30/2009,09/22/2008 ,09/23/2002 Seasonal Influenza, Trivalen t, Adjuvanted, 65+ YRS, [...] as of this encounter Miscellaneous Notes * Addendum Note - Aure Bernal RPh - 08/28/2024 9:55 AM EDTAddended by: AURE BERNAL on: 08/28/2024 09:55 AM Modules accepted: Orders * Telephone Encounter - [facility] - 08/28/2024 9:54 AM EDT Signed Prescriptions: Disp Refills Allopurinol 100 MG Oral Tablet (Zyloprim) 180 Ta*1 Sig: TAKE TWOTABLETS BY MOUTH IN THE MORNINGAuthorizing Provider: SUSAN WEBSTEROrdergeri User: JAYNAARABELLAAURE POTTS SE documented in this encounter Plan of Treatment Upcoming Encounters Date Type Department Care Team (Late st Contact Info) Description 10/30/2024 10:00 AM EST Office Visit Family Medicine [address] [place] [phone] Susan Webster MD [address] [place] [address] [place] [address] 01/21/2025 9:30 AM EST Office Visit Cardiology [address] [place] [address] Jerad Bashir PA-C [address] [place] [phone] 07/21/2025 8:20 AM EDT Office Visit Dermatology [address] [place] [address] Breanna Alejandro PA-C [address] [place] [address] [place] [address] Scheduled Orders Name Type Priority Associated Diagnoses Orde r Schedule ALBUMIN / CREATININE RATIO, URINE Lab Routine Chronic kidney disease, stage 3a (HCC) Expected: 08/28/2024, Expires: 08/28/2025 Health Maintenance Due Date Last Done Comments Adult Wellness Visit 09/12/2023 09/12/2022 Depression Screening 09/12/2023 09/12/2022 COVID-19 Vaccine ( season) 2024 09/12/2023, 08/27/2022, 10/09/2021, Additional history exists Influenza Vaccine (FLU shot) (#1) 2024 09/12/2023, 08/27/2022, 08/27/2022, Additional history exists GFR 10/21/2024 04/20/2024, 03/02, 02/18/2024, Additional history exists Albumin/Creatinine Ratio 10/22/2024 023, 09/12/2022, 10/25/2021 CKD PHOS USE SMARTSET [id number] 10/22/202410/03, 09/07/2022, 10/23/2021 CKD HGB USE SMARTSET [id number] 02/17/202502/17, 11/29/2022, 09/07/2022, Additional history exists DTap/Tdap [...] as of this encounter Visit Diagnoses Diagnosis Gouty arthropathy Gouty arthropathy, unspecified Chronic kidney disease, stage 3a (HCC) documented in this encounter Care Teams Home Teaching Grades 9 Thru 12 Teacher Relationship Specialty Start Date End Date Susan Webster MD [address] [place] [address] [place] [address] PCP - General Family Medicine 07/05/15 documented as of this encounter
--- OUTSIDE RECORDS SUMMARY | 2024-11-09 08:35 | External Medical Summary | Summary of Care ---
Author Name Unknown Organization [facility] Address [address] [facility] [place] [address] Phone [phone] Care Team Providers Care Fabric Worker Foreman Name Role Phone Susan Webster MD Primary Care Provide r Reason for Visit * Reason Comments Follow Up Encounter Details Date Type Department Care Team (Late st Contact Info) Description 07/07/2024 9:00 AM EDT Office Visit Cardiology [address] [place] [address] Jerad Bashir PA-C [address] [place] [phone] Permanent atrial fibrillation (HCC)*; Severe mitral regurgitation; Dyspnea on exertion; Chronic kidney disease, stage 3a (HCC); Dyslipidemia, goal LDL below 130; Tobacco use disorder Allergies Active Allergy Reactions Criticality Noted Date Comments Aspirin High 05/31/2022 Other reaction(s): sick to stomach documented as of this encounter (statuses as of 07/07/2024) Medications Medication Sig Dispensed Refills Start Date End Date Status Zinc 50 MG Oral Tablet Take 1 Tablet by mouth every other day. Active D3-1000 25 MCG (1000 UT) Oral Tablet (Cholecalciferol) Take 1 Tablet by mouth in the morning. Active Allopurinol 100 MG Oral Tablet (Zyloprim)Indications: Gouty arthropathy take 2 tablets in the morning. 180 Tablet 2 11/28/2023 Active Spironolactone 25 MG Oral Tablet (Aldactone) [...] THE MORNING 90 Tablet 3 04/16/2024 Active documented as of this encounter (statuses as of 07/07/2024) Active Problems Problem Noted Date Diagnosed Date Basal cell carcinoma (BCC) of scalp 10/28/2023 Chronic kidney disease, stage 3a 08/14/2021 Overview: Per CKD protocol Mitral valve prolapse 07/28/2021 Moderate to severe mitral regurgitation 07/28/20 21 Gouty arthropathy 07/21/2021 Paroxysmal atrial fibrillation 07/21/2021 Mitral valve insufficiency 07/15/2018 History of nonmelanoma skin cancer 02/28/2015 Overview: BCC on the left pre-auricular 02/12, BCC left hinduism 05/15, 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, recurrent BCC nasal tip 04/10 Dyslipidemia, goal LDL below 130 02/10/2013 Generalized osteoarthritis 08/29/2010 Tobacco use disorder 08/12/2008 ADVANCE DIRECTIVE INFORMATION 09/19/2006 Overview: Yes, Patient instructed to provide copy of advance directive for provider to review and to be scanned into Electronic Medical Record documented as of this encounter (statuses as of 07/07/2024) Resolved Problems Problem Noted Date Diagnosed Date Resolved Date Lyme disease 07/15/2018 07/16/2019 Mitral valve insufficiency [...] as of this encounter (statuses as of 07/07/2024) Immunizations Name Administration Dates Next Due COVID-19 [...] lent, No Preserve, IM 08/09/2017,09/24/2015 Seasonal Influenza, Split, I IV3, With Preserve, Inj 08/31/2014,08/19/2013,09/02/2012,08/30,08/29/2010,08/30/2009,09/22/2008 Seasonal Influenza, Trivalen t, Adjuvanted, 65+ yrs 08/27/2022,08/31/2019 TD, Preservative Free 08/12/2008 TDAP (age [...] Sign Reading Time Taken Comments Blood Pressure 108/64 07/07/2024 8:49 AM EDT Pulse 64 07/07/2024 8:49 AM EDT Temperature - - Respiratory Rate 16 07/07/2024 8:49 AM EDT Oxygen Saturation - - Inhaled Oxygen Concentration - - Weight 67.1 kg (148 lb) 07/07/2024 8:49 AM EDT Height - - Body Mass Index 24.63 10/28/2023 11:24 AM EST documented in this encounter Progress Notes * Jerad Bashir PA-C - 07/07/2024 8:48 AM EDT History of Present Illness: Rafy Stout Jr. is a 84 year old male who returns today for cardiologyfollow-up. In early January 2024 patient called this office with complaints worsening shortness of breath as well as increased lower extremity peripheral edema. Furosemide 20 mg/day and potassium chloride 10 mEq/day were initiated with definite improvement. Patient was last seen in this office in February 18, 2024. At that time he noted some lower extremity peripheral edema and shortness of breath; this led to discontinuation of potassium chloride and the concurrent addition of spironolactone at 12.5 mg perday in the morning. Follow-up metabolic panels in March and April were OK Patient returns today feeling well. He notes improved exercise tolerance. He is looking forward to the weather cooling and going out to cut some more firewood for the outdoor furnace. No chest discomfort. No palpitations. Breathing "seems better than it was." No significant cough or chest congestion. Stable orthopnea, mostly laying on his right side. No PND. No breast pain or tenderness. No abdomi nal bloating, scrotal edema, increased lower extremity or abrupt weight change. Weight is down. No lightheadedness, dizziness, near syncope, or syncope. No epistaxis, hemoptysis, melena, hematochezia, or hematuria. Patient Active Problem List Diagnosis ADVANCE DIRECTIVE INFORMATION Tobacco use disorder Generalized osteoarthritis Dyslipidemia, goal LDL below 130 History of nonmelanoma skin cancer Mitral valve insufficiency Gouty arthropathy Paroxysmal atrial fibrillation (HCC) Mitral valve prolapse Moderate to severe mitral regurgitation Chronic kidney disease, stage 3a (HCC) Basal cell carcinoma (BCC) of scalp Past Medical History: Diagnosis Date Lyme disease 07/15/2018 Mitral regurgitation 2012 moderate to severe Other and unspecified malignant neoplasm of skin of other and unspecified parts of face Renal stone 1970s 2 surgeries Past Surgical History: Procedure Laterality Date MISCELLANEOUS ORDER ([facility] ONLY) Right 03/2014 knee bursectomy and I&D OTHER 1969 kidney stone removal.x2 Family History Problem Relation Name Age of Onset Cancer Father skin, bladder Heart Disorder Father Diabetes Mother Hypertension Sister Diabetes Sister Social History Socioeconomic History Marital status: Spouse [...] on file Social History Narrative 2019 Social Determinants of Health Financial Resource Strain: Not on file Food Insecurity: No Food Insecurity (09/12/2022) Hunger Vital Sign Worried About Running Out of Food in the Last Year: Never true Ran Out of Food in the Last Year: Never true Transportation Needs: Not on file Social Connections: Unknown (05/19/2024) Social Connections How often do you feel lonely or isolated from those around you? (Adult - for ages 18 years and over): Not on file Housing Stability: Not on file Social History Social History Narrative 2019 Eleni who passed in 2019. Complete Review of Systems is as stated above, negative, or noncontributory. Review of patient's allergies indicates: Allergen Reactions Aspirin Other reaction(s): sick to stomach Current Outpatient Medications Medication Sig Dispense Refill Zinc 50 MG Oral Tablet Take 1 Tablet by mouth every other day. D3-1000 25 MCG (1000 UT) Oral Tablet (Cholecalciferol) Take 1 Tablet by mouth in the morning. Allopurinol 100 MG Oral Tablet (Zyloprim) take 2 tablets in the morning. 180 Tablet 2 Spironolactone 25 MG Oral Tablet (Aldactone) Take [...] MOUTH IN THE MORNING 90 Tablet 3 No current facility-administered medications for this visit. OBJECTIVE/PHYSICAL EXAMINATION: BP 108/64 | Pulse 64 | Resp 16 | Wt 67.1 kg (148 lb) | BMI 24.63 kg/m | BSA 1.75 m General: Alert, no distress, comfortable and cooperative Skin: No rash. Eyes: PER. Conjunctiva pink, sclera clear. HENT: Normocephalic. Atraumatic. Neck: No carotid bruits. No JVD. No HJR. Heart: Irregularly irregular at 80 bpm. Grade II/ apical systolic murmur. No diastolic murmur. Lungs: Clear to auscultation. Abdomen: +BS. Soft. Nontender. No masses. No organomegaly. Extremities: Trivial pretibial edema. No clubbing. No cyanosis Pulses: radial=2/4, posterior tibial=1/4. Limited neurological examination: No focal deficit. Data: February 17, 2013 NEELIMA Interpretation Summary (as per Dr. Calvo): The exercise echocardiographic examination is normal without resting left ventricular wall motion abnormalities or inducible ischemia. Occasional PVC's. Hypertensive response to exercise. Mildly reduced exercise tolerance, completing 7mets. At rest, normal LV chamber size with borderline concentric LVH. Normal LV systolic function without regional wall motion abnormality, EF 55-60%. Grade I diastolic dysfunction. Mild prolapse of the anterior mitral leaflet and moderate prolapse of the posterior mitral leaflet. Moderate to severe mitral regurgitation. Mild left atrial enlargement. July 27, 2021 TTE Interpretation Summary (as per Dr. Calvo): LV chamber size and wall thickness. Normal LV systolic function without regional wall motion abnormality. Calculated LV ejection Fraction = 61% (bi-plane method of discs). Mild prolapse of the anterior mitral leaflet and moderate prolapse of the posterior mitral leaflet. Moderate to severe mitral regurgitation. Mild left atrial enlargement. April 30, 2023 TTE Interpretation Summary (as per Dr. Bermeo): There was atrial fibrillation during the examination. The left ventricular cavity size is normal. The LV wall thickness is normal. There ismild diffuse left ventricular hypokinesis. The qualitative LV ejection fraction is 50-54% (normal).There is biatrial enlargement The mitral valve leaflets thickness is moderately increased. There ismoderate mitral annular calcification. There is mild prolapse of the anterior mitral leaflet and moderate prolapse of the posterior mitral leaflet. Severe mitral regurgitation is present. Moderate tricuspid regurgitation is present. Mild pulmonary hypertension is present. In comparison to study of July 27, 2021, mitral insufficiency has increased LV systolic function is less May 12, 2023 TTE Interpretation Summary ([facility], Dr. Bermeo): Normal size LV. Borderline concentric LVH. Mild global hypokinesis of the LV. EF 45 to 50%. Moderately increased mitral valve leaflet thickness with moderate mitral annular calcification, mild prolapse of the anterior mitral valve leaflet,moderate prolapse of the posterior mitral valve leaflet, moderate to severe mitral regurgitation. No mitral valve stenosis. Trace tricuspid regurgitation. RVSP elevated at 40 to 50 mmHg. No pericardial effusion. EKG performed on February 18, 2024 revealed atrial flutter with variable AV block, with premature ventricular or aberrantly conducted complexes, left posterior fascicular block. QTc prolonged at 493 ms. January 2024 Zio: Atrial Fibrillation occurred continuously (100% burden), ranging from 38-101 bpm (avg of 61 bpm). Isolated VEs were occasional (2.0%, 7545), VE Couplets were rare (<1.0%, 73), and VE Triplets were rare (<1.0%, 2). Ventricular Bigeminy and Trigeminy were present. The patient recorded 1 diary entry of daily shortness of breath correlating with atrial fibrillation with ventricular bigeminy. Results: Atrial fibrillation, average rate 61 beats per minute with occasional ventricular ectopic beats, bigeminy March 05, 2024 TTE Interpretation Summary (as per Dr. Bermeo): The left ventricular cavity size is mildly enlarged. The LV wall thickness is normal. There is mild diffuse left ventricular hypokinesis. The qualitative LV ejection fraction is 45-49% (mildly reduced). The left ventricular diastolic function is severely abnormal (grade III). The left atrium is severely enlarged (>48 ml/m^2,). Mild aortic valve sclerosis is present. There is moderate mitral annular calcification. The mitral valve annulus is moderately dilated. Severe mitral regurgitation is present. Mild tricuspid regurgitation is present. Moderate pulmonary hypertension is present. The estimated pulmonary artery systolic pressure is 40-45mm Hg. In comparison to prior study of April 30, 2023, LV systolic function has decreased,LV chamber size has enlarged ASSESSMENT AND RECOMMENDATIONS/PLAN: Mitral valve prolapse. Severe mitral regurgitation. LVEF 45-49%. Conservative nonsurgical medical management requested by the patient. Heart failure, combined systolic and diastolic. Volume status: Compensated. Continue furosemide 20 mg/day and spironolactone 12.5 mg/day. DTP discussed with patient to double furosemide x 2-3 days for a weight gain of 2 pounds overnight or 5 pounds in one week. Follow-up metabolic panel discussed today and deferred, to be obtained at next evaluation. Permanent atrial fibrillation/flutter. Rate controlled, without rate lowering therapies. Patient anticoagulated with Eliquis without bleeding issues/concern. Continue Eliquis. Frequent PVCs. Only a 2% burden via January 2024 Zio. Asymptomatic. Dyslipidemia, goal LDL below 130. LDL cholesterol 85 mg/dL on 10/22/2023. Tobacco use disorder, snuff. Cessation recommended. Cardiology follow-up in 6 months or as needed. ER with emergencies. Jerad Bashir PA-C Department of Cardiology I spent a total of 20-29 minutes (exact time 28 mins) on the date of service in preparation, delivery, and documentation of the care provided to Rafy Stout Jr. excluding any time spent in the performance of separately billed services. This visit involved medical care services related to at least one serious condition or complex condition requiring ongoing care. This chart was completed in part utilizing [employer] Speech Voice Recognition Software. Grammatical errors, random word insertions, prounoun errors, and incomplete sentences are an occasional consequence of this system due to software limitations, ambient noise, and hardware issues. Any formal questions or concerns about the content, text, or information contained within the body of this dictation should be directly addressed to the provider for clarification. documented in this encounter Nursing Notes * Florence Carroll LPN - 07/07/2024 8:48 AM EDT Examination Room: 3 Name: Rafy Stout Jr. Date of : 1940 Reason for Visit: Follow up Problems/Concerns: Denies complaint, feels like he's doing better over past couple weeks Interim Hosp(s): denies Chest Pain/SOB: Denies, states SOB improving with exercise. MyChart Discussed: ALREADY ACTIVE Patient was instructed to not get up on the exam table until directed and assisted by their provider; patient is to remain seated in the chair/ wheelchair/ exam table for fall prevention and safety reasons. Patient is aware staff will assist stepping down off exam table with personnel. documented in this encounter Plan of Treatment Upcoming Encounters Date Type Department Care Team (Late st Contact Info) Description 07/15/2024 10:20 AM EDT Office Visit Dermatology [address] [place] [phone] Breanna Alejandro PA-C [address] [place] [address] [place] [phone] 10/30/2024 10:00 AM EST Office Visit Family Medicine [address] [place] [phone] Susan Webster MD [address] [place] [address] [place] [phone] 01/21/2025 9:30 AM EST Office Visit Cardiology [address] [place] [phone] Jerad Bashir PA-C [address] [place] [address] Health Maintenance Due Date Last Done Comments Depression Screening 09/12/2023 09/12/2022 COVID-19 Vaccine ( season) 2024 09/12/2023, 08/27/2022, 10/09/2021, Additional history exists Influenza Vaccine (FLU shot) (#1) 2024 09/12/2023, 08/27/2022, 08/27/2022, Additional history exists GFR 10/21/2024 04/20/2024, 03/02, 02/18/2024, Additional history exists Albumin/Creatinine Ratio 10/22/2024 023, 09/12/2022, 10/25/2021 CKD PHOS USE SMARTSET [id number] 10/22/202410/03, 09/07/2022, 10/23/2021 CKD HGB USE SMARTSET [id number] 02/17/202502/17, 11/29/2022, 09/07/2022, Additional history exists DTaP,Tdap,and Td Vaccines (2 - Td or Tdap) 08/24/2030 [...] as of this encounter Visit Diagnoses Diagnosis Permanent atrial fibrillation (HCC)- Primary Atrial fibrillation Severe mitral regurgitation Mitral valve disorders Dyspnea on exertion Other dyspnea and respiratory abnormality Chronic kidney disease, stage 3a (HCC) Dyslipidemia, goal LDL below 130 Other and unspecified hyperlipidemia Tobacco use disorder documented in this encounter Care Teams Fabric Worker Foreman Relationship Specialty Start Date End Date Susan Webster MD [address] [place] [address] [place] [address] PCP - General Family Medicine 07/05/15 documented as of this encounter
--- OUTSIDE RECORDS SUMMARY | 2024-11-09 08:35 | External Medical Summary | Summary of Care ---
Author Name Unknown Organization [facility] Address [address] [place] [address] Phone [phone] Care Team Providers Care Cancellation Clerk Name Role Phone Susan Webster MD Primary Care Provide r Encounter Details Date Type Department Care Team (Latest Contact Info) Description 07/15/2024 10:14 AM EDT - 07/15/2024 11:59 PM EDT Hospital Encounter Radiology Film File [address] [place] [address] Arrived Discharge Disposition: Home - Self Care Allergies Active Allergy Reactions Criticality Noted Date Comments Aspirin High 05/31/2022 Other reaction(s): sick to stomach documented as of this encounter (statuses as of 07/16/2024) Medications Medication Sig Dispensed Refills Start Date [...] as of this encounter (statuses as of 07/16/2024) Active Problems Problem Noted Date Diagnosed Date Chronic kidney disease, stage 3a 08/14/2021 Overview: Per CKD protocol Mitral valve prolapse 07/28/2021 Moderate to severe mitral regurgitation 07/28/20 Gouty arthropathy 07/21/2021 Paroxysmal atrial fibrillation 07/21/2021 Mitral valve insufficiency 07/15/2018 History of nonmelanoma skin cancer 02/28/2015 Overview: 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 04/10, L preauricular region 02/12, L hindu 05/15, scalp 07/24), 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) Dyslipidemia, goal LDL below 130 02/10/2013 Generalized osteoarthritis 08/29/2010 Tobacco use disorder 08/12/2008 ADVANCE DIRECTIVE INFORMATION 09/19/2006 Overview: Yes, Patient instructed to provide copy of advance directive for provider to review and to be scanned into Electronic Medical Record documented as of this encounter (statuses as of 07/16/2024) Resolved Problems Problem Noted Date Diagnosed Date [...] as of this encounter (statuses as of 07/16/2024) Immunizations Name Administration Dates Next Due COVID-19 [...] 10:00 AM EST Office Visit Family Medicine [address] [place] [phone] Susan Webster MD [address] [place] [address] [place] [address] 01/21/2025 9:30 AM EST Office Visit Cardiology [address] [place] [phone] Jerad Bashir PA-C [address] [place] [phone] 07/21/2025 8:20 AM EDT Office Visit Dermatology [address] [place] [address] Breanna Alejandro PA-C [address] [place] [address] [place] [address] Health Maintenance Due Date Last Done Comments Adult Wellness Visit 09/12/2023 09/12/2022 Depression Screening 09/12/2023 09/12/2022 COVID-19 Vaccine ( season) 2024 09/12/2023, 08/27/2022, 10/09/2021, Additional history exists Influenza Vaccine (FLU shot) (#1) 2024 09/12/2023, 08/27/2022, 08/27/2022, Additional history exists GFR 10/21/2024 04/20/2024, 03/02, 02/18/2024, Additional history exists Albumin/Creatinine Ratio 10/22/2024 023, 09/12/2022, 10/25/2021 CKD PHOS USE SMARTSET [id number] 10/22/202410/03, 09/07/2022, 10/23/2021 CKD HGB USE SMARTSET [id number] 02/17/202502/17, 11/29/2022, 09/07/2022, Additional history exists DTaP,Tdap,and [...] Not on filedocumented as of this encounter Procedures Procedure Name Priority Date/Time Associated Diagnosis Comments DERM EXAM - DERM (IMAGES ONLY, NO REPORT) Routine 07/15/2024 10:14 AM EDT History of nonmelanoma skin cancer Screening exam for skin cancer Hx of actinic keratosis Scar condition and fibrosis of skin Seborrheic keratosis documented in this encounter Results * DERM EXAM - DERM (IMAGES ONLY, NO REPORT) (07/15/2024 10:14 AM EDT) Narrative Scheduling, Silent - 07/15/2024 10:14 AM EDT This is an imaging study not interpreted or resulted by a [employer] or [employer] contracted radiologist. Breanna Alejandro PA-C RADIOLOGY ([facility]) documented in this encounter Care Teams Cancellation Clerk Relationship Specialty Start Date End Date Susan Webster MD [address] [place] [address] [place] [phone] PCP - General Family Medicine 07/05/15 documented as of this encounter
--- OUTSIDE RECORDS SUMMARY | 2024-11-09 08:35 | External Medical Summary | Summary of Care ---
Author Name Unknown Organization [facility] Address [address] [facility] [address] Phone [phone] Care Team Providers Care Application Security Engineer Name Role Phone Susan Webster MD Primary Care Provide r Reason for Visit * Reason Comments Follow Up 1 year for full skin exam, no concerns Encounter Details Date Type Department Care Team (Late st Contact Info) Description 07/15/2024 10:20 AM EDT Office Visit Dermatology [address] [place] [address] Breanna Alejandro PA-C [address] [place] [address] [place] [address] History of nonmelanoma skin cancer*; Screening exam for skin cancer; Hx of actinic keratosis; Scar condition and fibrosis of skin; Seborrheic keratosis Allergies Active Allergy Reactions Criticality Noted Date Comments Aspirin High 05/31/2022 Other reaction(s): sick to stomach documented as of this encounter (statuses as of 07/15/2024) Medications Medication Sig Dispensed Refills Start Date [...] as of this encounter (statuses as of 07/15/2024) Active Problems Problem Noted Date Diagnosed Date Chronic kidney disease, stage 3a 08/14/2021 Overview: Per CKD protocol Mitral valve prolapse 07/28/2021 Moderate to severe mitral regurgitation 07/28/20 21 Gouty arthropathy 07/21/2021 Paroxysmal atrial fibrillation 07/21/2021 Mitral valve insufficiency 07/15/2018 History of nonmelanoma skin cancer 02/28/2015 Overview: 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 04/10, L preauricular region 02/12, L baptist 05/15, scalp 07/24), 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) Dyslipidemia, goal LDL below 130 02/10/2013 Generalized osteoarthritis 08/29/2010 Tobacco use disorder 08/12/2008 ADVANCE DIRECTIVE INFORMATION 09/19/2006 Overview: Yes, Patient instructed to provide copy of advance directive for provider to review and to be scanned into Electronic Medical Record documented as of this encounter (statuses as of 07/15/2024) Resolved Problems Problem Noted Date Diagnosed Date [...] as of this encounter (statuses as of 07/15/2024) Immunizations Name Administration Dates Next Due COVID-19 [...] can per 3 days, s tarted in 7 Alcohol Use Standard Drinks/Week Comments Yes 0.8 [...] on file documented as of this encounter Patient Instructions * Patient Instructions* Breanna Alejandro PA-C - 07/15/2024 10:13 AM EDT SUNSCREEN USE AND SUN PROTECTION: 1. The best protection is sun avoidance. Seek shade if you can, especially between 10am to 4pm (peak sun hours). 2. Use sunscreen with an SPF (Sun Protection Factor - the number on most sunscreen bottles) of 30 or more that protects from Ultraviolet A (UVA) and Ultraviolet B (UVB) wavelength light (strongly recommend SPF 50). This is referred to as broad spectrum sun protection because it protects from most wa velengths in both spectrums of UVA and UVB light. Unfortunately, even though the protection is broad it is not complete, therefore making sun avoidance the best protection. UVB and UVA have both beenimplicated in causing skin cancers. Older sunscreens only protected from UVB and sunscreens with added UVA protection should contain Titanium dioxide, Zinc oxide, or Avobenzone. Other oil free, non-comedogenic lotion with SPF 30 or greater is fine. 3. Use sun protection if outside for 15 minutes or more. Apply 20-30 minutes before going out and reapply every 1-2 hours. No sunscreen is truly water ''proof'' and it will wash away with sweat, swimming and rubbing. 4. Wear tightly woven, loose fitting (cooler) long sleeved clothing, UV-blocking sun glasses (eyes need protection as well) and wide-brimmed hatwear (no straw hats with holes because light still getsthrough). Strongly recommended *Neutrogena Pure and Free Baby SPF 60 (have separate face and body lotions) orCeraVe AM facial lotion (with SPF 30). If looking for non toxic alternatives-look for non-mikhail particle zinc. Product examples; Think sport, Think baby, [place], [place], [employer], [place] baby. "Baby" products can be used for all ages. documented in this encounter Progress Notes * Breanna Alejandro PA-C - 07/15/2024 10:20 AM EDT SUBJECTIVE: HPI: Rafy Stout Jr. is a 84 year old male seen at the request of Self for evaluation and treatment of full skin exam. - Tanning bed history. - Blistering sunburns. No new or changing lesions, per pt. Previous patient of Drs. Paul, Jai, and Nabil. Dedicated Owner Operator Documentation Patient offered electric meter setter and declined. REVIEW OF SYSTEMS: SKIN: No other new or changing moles. HEME/LYMPH: No new or enlarging lumps or bumps. CONSTITUTIONAL: No nausea, vomiting, fevers, chills, diarrhea. No recent unintended weight loss, night sweats, appetite or malaise. 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 Past Medical History: Diagnosis Date Lyme disease 07/15/2018 Mitral regurgitation 2012 moderate to severe Other and unspecified malignant neoplasm of skin of other and unspecified parts of face Renal stone 1970s 2 surgeries FAMILY HISTORY: Skin CA: None and unknown skin cancer (possibly non-melanoma) in sister(s) Skin Disorders: none SOCIAL HISTORY: Social History Tobacco Use Smoking status: Never Smokeless tobacco: Current Types: Chew, Snuff Tobacco comments: 1 can per 3 days, started in 1957 Substance Use Topics Alcohol use: Yes Alcohol/week: 0.8 standard drinks of alcohol Types: 1 12 oz of beer per week Comment: occasionally Vaping/E-Cigarette Use Vaping/E-Cigarette Use Never User Vaping/E-Cigarette Substances Vaping/E-Cigarette Devices MEDICA TIONS: Current Outpatient Medications Medication Sig Dispense Refill [...] No current facility-administered medications for this visit. ALLERGY: Aspirin OBJECT AICHA: GEN: alert, no distress, appears oriented, pleasant, and cooperative. SKIN: Detailed exam of hair, face including lids and lips, neck, chest, abdomen, back, bilateral upper ext. (arm, hand, fingers), bilateral lower ext. (leg, foot, toes), palpation of scalp, fingernails, toenails, inguinal areas, groin (penis, scrotum and perineum), buttocks, and anus completed: 1. Back and scalp-White circular atrophic papule and plaque. 2. Trunk/bilat arms and legs-Some sharply defined, variegated brown, waxy flat papules with velvetyto finely verrucous surfaces. ASSESS MENT/PLAN: 1. Scars s/p squamous cell carcinoma in situ and basal cell carcinoma on back and scalp-No sign of recurrence. 2. Seborrheic/Benign Keratosis(-es) on trunk/bilat arms and legs-No treatment needed, pt given reassurance. Skin cancer brochure given and ABCDE's discussed with patient. Annual full body skin examination (unless I recommended otherwise), self-examination, and sun protection (SPF 30+ daily to sun exposed areas, with reapplication every 1-2 hours when out in sun for long periods of time) advised and discussed. Recommended sooner follow up for new or changing lesions. These changes include rapid enlargement, changes in color or shape or symptoms, bleeding, or other concerns. The common features and behavior of non-melanoma skin cancers (e.g. BCC/SCC) as well as the ABCDEs and ugly duckling features of melanoma were also reviewed. Patient alone today. Photo(s) of #1-2 taken, pt verbally consented to having photo(s) taken. Follow-up: 1 year for full skin exam Photos and chart reviewed by Dr. Yunior Mtz. Presum ed diagnoses, expected natural histories, and management options discussed with the patient at length. Questions were addressed and anticipatory guidance provided. They were instructed to contact me if additional questions, concerns, or problems develop in the interim. -There were no barriers to learning and no other pain was related to today's visit. The patient and/or person accompanying patient demonstrates understanding of the visit and treatment. Breanna Alejandro PA-C 07/15/2024 10:08 AM Dermatology [address] [place] [address] documented in this encounter Nursing Notes * Angle Will LPN - 07/15/2024 10:01 AM EDT Patient identified by full name and date of Chief Complaint Patient presents with Follow Up 1 year for full skin exam, no concerns documented in this encounter Plan of Treatment Upcoming Encounters Date Type Department Care Team (Late st Contact Info) Description 10/30/2024 10:00 AM EST Office Visit Family Medicine [address] [place] [phone] Susan Webster MD [address] [place] [address] [place] [address] 01/21/2025 9:30 AM EST Office Visit Cardiology [address] [place] [address] Jerad Bashir PA-C [address] [place] [phone] 07/21/2025 8:20 AM EDT Office Visit Dermatology [address] [place] [address] Breanna Alejandro PA-C [address] [place] [address] [place] [address] Health Maintenance Due Date Last Done Comments Adult Wellness Visit 09/12/2023 09/12/2022 Depression Screening 09/12/2023 09/12/2022 COVID-19 Vaccine ( season) 2024 09/12/2023, 08/27/2022, 10/09/2021, Additional history exists Influenza Vaccine (FLU shot) (#1) 2024 09/12/2023, 08/27/2022, 08/27/2022, Additional history exists GFR 10/21/2024 04/20/2024, 03/02, 02/18/2024, Additional history exists Albumin/Creatinine Ratio 10/22/2024 023, 09/12/2022, 10/25/2021 CKD PHOS USE SMARTSET 44297 10/22/202410/03, 09/07/2022, 10/23/2021 CKD HGB USE SMARTSET 44628 02/17/202502/17, 11/29/2022, 09/07/2022, Additional history exists DTaP,Tdap,and [...] study not interpreted or resulted by a [facility] or [facility] contracted radiologist. Breanna Alejandro PA-C RADIOLOGY ([facility]) documented in this encounter Visit Diagnoses Diagnosis History of nonmelanoma skin cancer- Primary Personal history of other malignant neoplasm of skin Screening exam for skin cancer Screening for malignant neoplasm of the skin Hx of actinic keratosis Personal history of diseases of skin and subcutaneous tissue Scar condition and fibrosis of skin Seborrheic keratosis Other seborrheic keratosis documented in this encounter Care Teams Application Security Engineer Relationship Specialty Start Date End Date Susan Webster MD [address] [place] [address] [place] [address] PCP - General Family Medicine 07/05/15 documented as of this encounter
--- OUTSIDE RECORDS SUMMARY | 2024-11-09 08:35 | External Medical Summary | Summary of Care ---
Author Name Unknown Organization [facility] Address [address] [facility] [address] Phone [phone] Care Team Providers Care Courtesy Driver Name Role Phone Susan Webster MD Primary Care Provide r Reason for Visit * Reason Comments Follow Up 1 year for full skin exam, no concerns Encounter Details Date Type Department Care Team (Late st Contact Info) Description 07/15/2024 10:20 AM EDT Office Visit Dermatology [address] [place] [address] Breanna Alejandro PA-C [address] [place] [address] [place] [phone] History of nonmelanoma skin cancer*; Screening exam [...] tip 04/10, L preauricular region 02/12, L mormon 05/15, scalp 07/24), squamous cell carcinoma in [...] Split, I IV3, With Preserve, Inj 08/31/2014,08/19/2013,09/02/2012,08/30,08/29/2010,08/30/2009,09/22/2008 ,09/23/2002 Seasonal Influenza, Trivalen t, Adjuvanted, 65+ yrs [...] zinc. Product examples; Think sport, Think baby, [place], [employer], [employer], [place] baby. "Baby" products can be used for all ages. documented in this encounter Progress Notes * Yunior Mtz MD - 07/15/2024 1:29 PM EDT I have seen and examined the patient via teledermatology review of chart note and photos with Breanna Alejandro PA-C. I have reviewed and agree with the assessment and plan. * Breanna Alejandro PA-C - 07/15/2024 10:20 AM EDT SUBJECTIVE: HPI: Rafy Stout Jr. is a 84 year old male seen at the request of Self for evaluation and treatment of full skin exam. - Tanning bed history. - Blistering sunburns. No new or changing lesions, per pt. Previous patient of Jai Cohn, and Nabil. Proctologist Documentation Patient offered door trimmer and declined. 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 2. Seborrheic/Benign Keratosis(-es) on trunk/bilat arms and [...] Breanna Alejandro PA-C 07/15/2024 10:08 AM Dermatology [address] [place] [address] documented in this encounter Nursing Notes * Angle Will, OLIVE - 07/15/2024 10:01 AM EDT Patient identified by full name and date of Chief Complaint Patient presents with Follow Up 1 year for full skin exam, no concerns documented in this encounter Plan of Treatment Upcoming Encounters Date Type Department Care Team (Late st Contact Info) Description 10/30/2024 10:00 AM EST Office Visit Family Medicine [address] [place] [phone] Susan Webster MD [address] [place] [address] [place] [address] 01/21/2025 9:30 AM EST Office Visit Cardiology [address] [place] [address] Jerad Bashir PA-C [address] [place] [address] 07/21/2025 8:20 AM EDT Office Visit Dermatology [address] [place] [address] Breanna Alejandro PA-C [address] [place] [address] [place] [address] Health Maintenance Due Date Last Done Comments Adult Wellness Visit 09/12/2023 09/12/2022 Depression Screening 09/12/2023 09/12/2022 COVID-19 Vaccine ( season) 2024 09/12/2023, 08/27/2022, 10/09/2021, Additional history exists Influenza Vaccine (FLU shot) (#1) 2024 09/12/2023, 08/27/2022, 08/27/2022, Additional history exists GFR 10/21/2024 04/20/2024, 03/02, 02/18/2024, Additional history exists Albumin/Creatinine Ratio 10/22/2024 023, 09/12/2022, 10/25/2021 CKD PHOS USE SMARTSET 73326 10/22/202410/03, 09/07/2022, 10/23/2021 CKD HGB USE SMARTSET [id number] 02/17/202502/17, 11/29/2022, 09/07/2022, Additional history exists DTaP,Tdap,and [...] interpreted or resulted by a [facility] or [facility] contracted radiologist. Breanna Alejandro PA-C RADIOLOGY ([facility]) documented in this encounter Visit Diagnoses [...] keratosis documented in this encounter Care Teams Courtesy Driver Relationship Specialty Start Date End Date Susan Webster MD [address] [place] [address] [place] [phone] PCP - General Family Medicine 07/05/15 documented as of this encounter
--- OUTSIDE RECORDS SUMMARY | 2024-11-09 08:35 | External Medical Summary | Summary of Care ---
Author Name Unknown Organization [facility] Address [address] [facility] [address] Phone [phone] Care Team Providers Care Housing Assistant Name Role Phone Susan Webster MD Primary Care Provide r Reason for Visit * Reason Comments eRx-Medication Refill Encounter Details Date Type Department Care Team (Late st Contact Info) Description 08/27/2024 Refill Family Medicine [address] [phone] Susan Webster MD [address] [place] [address] [place] [address] Gouty arthropathy; Chronic kidney disease, stage [...] tip 04/10, L preauricular region 02/12, L latter day 05/15, scalp 07/24), squamous cell carcinoma in [...] Telephone Encounter - Aure Bernalheike [facility] - 08/28/2024 9:54 AM EDT Signed Prescriptions: Disp Refills Allopurinol 100 MG Oral Tablet (Zyloprim) 180 Ta*1 Sig: TAKE TWOTABLETS BY MOUTH IN THE MORNINGAuthorizing Provider: SUSAN WEBSTEROrdergeri User: JAYNAARABELLAAURE POTTS SE documented in this encounter Plan of Treatment Upcoming Encounters Date Type Department Care Team (Late st Contact Info) Description 10/30/2024 10:00 AM EST Office Visit Family Medicine [address] [place] [phone] Susan Webster MD [address] [place] [address] [place] [address] 01/21/2025 9:30 AM EST Office Visit Cardiology [address] [place] [address] Jerad Bashir PA-C [address] [place] [address] 07/21/2025 8:20 AM EDT Office Visit Dermatology [address] [place] [address] Breanna Alejandro PA-C [address] [place] [address] [place] [address] Scheduled Orders Name Type Priority Associated Diagnoses [...] 023, 09/12/2022, 10/25/2021 CKD PHOS USE SMARTSET [id number] 10/22/202410/03, 09/07/2022, 10/23/2021 CKD HGB USE SMARTSET [id number] 02/17/202502/17, 11/29/2022, 09/07/2022, Additional history exists DTap/Tdap [...] (HCC) documented in this encounter Care Teams Housing Assistant Relationship Specialty Start Date End Date Susan Webster MD [address] [place] [address] [place] [address] PCP - General Family Medicine 07/05/15 documented as of this encounter
[2024-11-09] MEDS: allopurinoL 100 MG TAB PO SCH (09:12)
[2024-11-09] MEDS: APIXABAN 5 MG TABLET PO SCH (09:12)
[2024-11-09] MEDS: CHOLECALCIFEROL 25 MCG (1000 UNITS) TAB PO SCH (09:12)
--- NOTE | 2024-11-09 09:13 | Cardiology Consultation ---
Date of Consultation November 09, 2024 Assessment & Plan (1) Chest pain, pleuritic: (2) Chronic a-fib: (3) Severe mitral insufficiency: (4) Systolic and diastolic CHF, chronic: (5) Frequent PVCs: (6) Tobacco use disorder: Plan Presentation with pleuritic chest pain starting on 11/08/2024 Chills yesterday, possible URI. Chest x-ray with prominent bronchovascular markings. EKG with low voltage. No acute ST segment change, chronic atrial fibrillation White blood cell count elevated on presentation at 12.65 K/ul. C-reactive protein elevated at 14.84 mg/dL D-dimer was negative at 280 ug/L Creatinine 1.41 High-sensitivity troponin 17.1 -> 21.5 pg/mL Patient chronically prescribed Eliquis anticoagulation Ongoing discomfort with inspiration Compensated volume status (Prior to arrival diuretic regimen: Furosemide 20 mg/day, Spironolactone 12.5 mg/day) Rate controlled chronic atrial fibrillation withOUT rate lowering therapies Refer for resting echocardiography Refer for noncontrast CT scan of the chest Add colchicine 0.6 mg/day for now Maintain telemetry Supervising Physician Co-Signing Physician Notes Attending attestation: Case reviewed with the advanced practitioner. I have personally performed a history and physical examination on the patient. I have reviewed the advanced practitioner's documentation on the date of service referenced in note, and I agree with, and take responsibility for the plan of care. Pleuritic chest pain on examination. Echo reveals stable findings, unchanged compared to prior. Add colchicine. Add low dose prednisone. Fran Membreno DO History of Present Illness Reason for Consultation: Chest pain Requesting Physician: Dr. John, [facility] Attending Physician: Dr. Walker Teran MD, [facility] History of Present Illness Mr. Rafy Stout Jr. is a 84-year-old male who was in his usual state of health until around 10:30 PM on Friday, November 08, 2024. While watching football on television the patient began to experience chest discomfort across the chest that he describes the pain, 5 out of 10, chest pressure similar to what he experienced back in May 2023 though not as severe, worse with inspiration, worse when attempting to lay down, radiating into the neck and shoulder. Patient notes summoning EMS around 1230. Aspirin and sublingual nitroglycerin w ere administered by EMS with maybe some mild improvement. EKG revealed atrial fibrillation with a ventricular rate of 77 bpm with low voltage QRS, QTc 468 ms. Patient chronically prescribed Eliquis anticoagulation. Chest x-ray with prominent bronchovascular markings. White blood cell count elevated on presentation at 12.65 K/ul. C-reactive protein elevated at 14.84 mg/dL. D-dimer was negative at 280 ug/L. Creatinine 1.41. High-sensitivity troponin 17.1 and 21.5 pg/mL. In the ER patient was administered Zofran, Toradol, and morphine. He continues to have some discomfort with inspiration. Did have some chills yesterday. No subjective fever. No significant cough. Gradual slowing and worsening exertional dyspnea reported by daughter. Still able to cut wood with a log splitter and fire of the outdoor furnace. No palpitations. Chronic stable orthopnea. No PND. No increased edema. No dizziness, near syncope, or syncope. No melena, hematochezia, or hematuria. Past Medical and Surgical History Mitral valve prolapse. Severe mitral regurgitation. Conservative nonsurgical medical management requested by the patient thus far Heart failure, combined systolic and diastolic. LVEF 45-49%. Permanent atrial fibrillation/flutter Chronic Eliquis anticoagulation Frequent PVCs Dyslipidemia Gout Osteoarthritis Tobacco use disorder, snuff Family History: Positive for CAD in father who at the age of 87. Three sisters with CAD and/or CHF. Social History: Never smoker. Smokeless tobacco user. No significant alcohol. (Eleni). Five children. Retired, previously self-employed repairman. Allergies Allergy/AdvReac Type Severity Reaction Status Date / Time aspirin Allergy Unknown Verified 05/12/23 03:13 Home Medications Medication Instructions Recorded Confirmed Type apixaban 5 mg tablet (Eliquis) 5 mg PO BID 05/12/23 11/09/24 History cholecalciferol (vitamin D3) 25 25 mcg PO QAM 05/12/23 11/09/24 History mcg (1,000 unit) tablet (Vitamin D3) losartan 25 mg tablet 25 mg PO QAM 05/12/23 11/09/24 History zinc gluconate 50 mg tablet 50 mg PO 3XWK 05/12/23 11/09/24 History allopurinol 100 mg tablet 200 mg PO QAM 11/09/24 11/09/24 History furosemide 20 mg tablet 20 mg PO QAM 11/09/24 11/09/24 History spironolactone 25 mg tablet 12.5 mg PO QAM 11/09/24 11/09/24 History Patient History Medical History Persistent atrial fibrillation Social History Smoking Status: Never smoker Tobacco Type: Smokeless Tobacco (Dip or Chew) Second Hand Exposure: No; Do You Dip or Chew Tobacco: Yes; Hx Alcohol Use: Yes Alcohol type: beer Hx Substance Use: No Preferred Language: Setswana Communication Ability: Effective Organizational Development Specialist Required: No Beliefs That Will Affect Care: None Current Living Situation: Alone Feels Safe at Home: Yes Assistive Devices: Bedside Commode, Cane and Walker Review of Systems Review of Systems: Complete Review of Systems is as stated above, negative, or noncontributory Physical Exam Physical Exam: General: Alert, no distress, comfortable and cooperative Skin: No rash. Eyes: PER. Conjunctiva pink, sclera clear. HENT: Normocephalic. Atraumatic. Neck: No JVD. No carotid bruits. Heart: Irregularly irregular at 60 bpm. Grade III/ apical systolic murmur. No diastolic murmur. Lungs: Clear to auscultation. Abdomen: +BS. Soft. Nontender. No masses. No organomegaly. Extremities: Trivial pretibial edema. No clubbing. No cyanosis Pulses: Posterior tibial=1/4. Limited neurological examination: No focal deficit. Results & Data Vital Signs (Past 12 Hours) Vital Signs Temp Pulse Pulse Resp BP BP Pulse Ox 11/09/24 08:13 77 11/09/24 06:30 62 16 114/77 98 11/09/24 06:00 65 19 117/75 99 11/09/24 05:55 68 16 114/66 96 11/09/24 05:37 11/09/24 05:00 68 18 122/77 98 11/09/24 05:00 71 18 122/77 98 11/09/24 04:00 65 19 112/76 94 11/09/24 03:00 69 21 133/75 96 12/09/24 02:54 68 11/09/24 02:45 95 11/09/24 02:35 36.8 C 81 22 138/79 95 11/09/24 02:14 94 Pulse Ox O2 Del Method O2 Del Method O2 Flow Rate O2 Flow Rate 11/09/24 08:13 11/09/24 06:30 Room Air 11/09/24 06:00 Nasal Cannula 2 11/09/24 05:55 Nasal Cannula 2 11/09/24 05:37 96 Nasal Cannula 2 11/09/24 05:00 Nasal Cannula 2 11/09/24 05:00 Nasal Cannula 2 11/09/24 04:00 Nasal Cannula 2 11/09/24 03:00 Nasal Cannula 2 11/09/24 02:54 11/09/24 02:45 Room Air 11/09/24 02:35 Room Air 11/09/24 02:14 Room Air Laboratory Results Cardiac Enzymes 11/09/24 11/09/24 Range/Units 02:35 06:08 AST 23 (13-39) U/L Troponin I High Sens 17.1 21.5 H (0-20) pg/ml CBC 11/09/24 Range/Units 02:35 WBC 12.65 H (4.8-10.8) K/ul RBC 4.58 L (4.70-6.10) M/uL Hgb 14.5 (14.0-18.0) g/dl Hct 42.4 (42.0-52.0) % Plt Count 152 (130-400) K/uL Neut # (Auto) 11.02 H (1.40-6.50) K/uL Lymph # (Auto) 0.85 L (1.20-3.40) K/uL [place] # (Auto) 0.67 H (0.11-0.59) K/uL Eos # (Auto) 0.03 (0.00-0.50) K/uL Baso # (Auto) 0.03 (0.00-0.20) K/uL Comprehensive Metabolic Panel 11/09/24 Range/Units 02:35 Sodium 135 L (136-145) mmol/L Potassium 4.5 (3.5-5.1) mmol/L Chloride 102 (98-107) mmol/L Carbon Dioxide 28 (21-32) mmol/L BUN 25 H (6-23) mg/dl Creatinine 1.41 H (0.6-1.4) mg/dl Glucose 127 H (70-99(Fasting)) mg/dl Calcium 9.5 (8.6-10.3) mg/dl AST 23 (13-39) U/L ALT 15 (7-52) U/L Alkaline Phosphatase 129 H (34-104) U/L Total Protein 7.2 (6.0-8.3) gm/dl Albumin 3.9 (3.4-5.0) gm/dl Intake and Output 11/08/24 11/09/24 11/09/24 22:59 06:59 14:59 Intake Total 0 / 0 Balance 0 / 0 Intake: Oral 0 / 0 Other: Weight 73.5 kg Weight Measurement Method Built in [facility] Diagnostic Findings March 05, 2024 TTE Interpretation Summary (as per Dr. Bermeo): The left ventricular cavity size is mildly enlarged. The LV wall thickness is normal. There is mild diffuse left ventricular hypokinesis. The qualitative LV ejection fraction is 45-49% (mildly reduced). The left ventricular diastolic function is severely abnormal (grade III). The left atrium is severely enlarged (>48 ml/m^2,). Mild aortic valve sclerosis is present. There is moderate mitral annular calcification. The mitral valve annulus is moderately dilated. Severe mitral regurgitation is present. Mild tricuspid regurgitation is present. Moderate pulmonary hypertension is present. The estimated pulmonary artery systolic pressure is 40-45mm Hg. In comparison to prior study of April 30, 2023, LV systolic function has decreased, LV chamber size has enlarged ER Telemetry: Atrial fibrillation/flutter with rates in the 50's and 60's.
--- NOTE | 2024-11-09 10:24 | Hospitalist Progress Note ---
Date of Service November 09, 2024 Assessment & Plan (1) Chest pain: Plan: 84-year-old male with past medical history significant for hyperlipidemia, paroxysmal atrial fibrillation, pulmonary hypertension, chronic combined systolic and diastolic CHF, mitral valve insufficiency, mitral valve prolapse, moderate to severe mitral regurgitation, generalized osteoarthritis, gouty arthropathy, tobacco use disorder, who lives at home comes because of chest pain. Chest pain Small pericardial effusion on CT chest Patient presents to the hospital with pleuritic chest pain Chest x-ray shows cardiomegaly and mild pulmonary edema CT chest shows small pericardial effusion with interstitial thickening that may represent interstitial edema versus fibrosis. EKG shows l atrial fibrillation with low QRS voltage Echocardiogram shows EF of 45 to 50%; moderate to severe mitral regurgitation. Cardiology consulted for comanagement; recommend colchicine and prednisone 20 mg. Monitor on telemetry Paroxysmal atrial fibrillation On Eliquis Will monitor on temetry CKD stage III Baseline creatinine 1.1 Presented with creatinine 1.4 continue Lasix and spironolactone and losartan and monitor History of gout On allopurinol Hypertension- continue home meds Chronic combined systolic and diastolic CHF EF 45 to 49% Has mitral valve prolapse and severe mitral regurgitation, nonsurgical medical management requested by patient per records continue lasix We will monitor for volume overload Tobacco use disorder Snuffs tobacco Counseling DVT prophylaxis Eliquis Disposition Observation med/telemetry Full code. Please note the above document was generated using voice recognition software. It may contain grammatical, syntax or spelling errors. Any formal questions or concerns about the content, text or information contained within the body of this dictation should be directly addressed to the provider for clarification Admission and Anticipated Discharge Date Admission Date: November 09, 2024 Subjective Patient seen and examined at bedside. He is sitting up on the bed; not in distress. He reports some chest discomfort on deep inspiration Vital signs remained stable and he is saturating well in 1 L of nasal cannula Review of Systems Review of Systems: All systems reviewed & are unremarkable except as noted in Subjective Physical Exam Physical Exam: General- Not in distress Head- atraumatic Eyes- PERRL. ENT- oropharynx clear Neck- supple, no JVD. Lungs- clear to auscultation no wheezing or crackles. Heart- regular rhythm;systolic murmur in mitral area,, no gallop. Abdomen- normal bowel sounds, soft, nontender, no distension. Extremities- trace pretibial edema present, no erythema seen Neuro- alert, oriented PERRL, no facial palsy; no dysarthria; moves extremities. Results & Data Results & Data Vital Signs (Past 12 Hours) Vital Signs Temp Pulse Pulse Resp BP BP Pulse Ox 11/09/24 10:04 62 14 120/76 94 11/09/24 08:13 77 11/09/24 06:30 62 16 114/77 98 11/09/24 06:00 65 19 117/75 99 11/09/24 05:55 68 16 114/66 96 11/09/24 05:37 11/09/24 05:00 68 18 122/77 98 11/09/24 05:00 71 18 122/77 98 11/09/24 04:00 65 19 112/76 94 11/09/24 03:00 69 21 133/75 96 11/09/24 02:54 68 11/09/24 02:45 95 11/09/24 02:35 36.8 C 81 22 138/79 95 11/09/24 02:14 94 Pulse Ox O2 Del Method O2 Del Method O2 Flow Rate O2 Flow Rate 11/09/24 10:04 Room Air 11/09/24 08:13 11/09/24 06:30 Room Air 11/09/24 06:00 Nasal Cannula 2 11/09/24 05:55 Nasal Cannula 2 11/09/24 05:37 96 Nasal Cannula 2 11/09/24 05:00 Nasal Cannula 2 11/09/24 05:00 Nasal Cannula 2 11/09/24 04:00 Nasal Cannula 2 11/09/24 03:00 Nasal Cannula 2 11/09/24 02:54 11/09/24 02:45 Room Air 11/09/24 02:35 Room Air 11/09/24 02:14 Room Air (1) Chest pain Chest pain type: unspecified Qualified Code(s): R07.9 - Chest pain, unspecified
--- NOTE | 2024-11-09 10:33 | Electrocardiogram Report ---
Test Reason : Blood Pressure : */* mmHG Vent. Rate : 77 BPM Atrial Rate : * BPM P-R Int : * ms QRS Dur : 94 ms QT Int : 414 ms P-R-T Axes : * 88 76 degrees QTcB Int : 468 ms Atrial fibrillation Low voltage QRS Abnormal ECG When compared with ECG of 13-May-2023 04:42, Vent. rate has increased by 26 bpm Confirmed by Edis Rivera ([id number]) on 11/09/2024 10:33:08 AM Referred By: REFERRED SELF Confirmed By: Edis Rivera
[2024-11-09 10:52] LABS: BUN Creatinine Ratio 22.9 (10-20); Calcium 9.1 mg/dl (8.6-10.3); Creatinine Clr Calc Pharmacy 44.3 ml/min; Magnesium 1.9 mg/dl (1.7-2.4); Potassium 4.5 mmol/L (3.5-5.1)
[2024-11-09 10:58] LABS: Troponin I High Sensitivity 20.7 pg/ml (0-20)
[2024-11-09] MEDS: COLCHICINE 0.6 MG TAB PO SCH (11:10)
[2024-11-09] MEDS: LOSARTAN POTASSIUM 25 MG TAB PO SCH (11:10)
[2024-11-09] MEDS: SPIRONOLACTONE 12.5 MG TAB PO SCH (11:11)
[2024-11-09] MEDS: FUROSEMIDE 20 MG TAB PO SCH (11:11)
--- NOTE | 2024-11-09 11:33 | CT Scan Report ---
CT chest diagnostic wo con CLINICAL HISTORY: chest pain. Abnormal ekg. chillls. elevated WBC TECHNIQUE: Multidetector row helical CT of the chest was performed. Coronal and sagittal reformations were obtained. Automated dose lowering techniques and/or adjustment according to patient size were u tilized for this exam. CT DOSE: 556.33 mGy.cm Comparison: Comparison is made to chest radiograph 11/09/2024 FINDINGS: Lungs and pleura: Bronchial wall thickening is seen. There is interstitial thickening and trace left pleural effusion. No consolidation is seen. Heart and pericardium: Mitral annular calcifications are seen. Cardiomegaly is seen with biatrial enl argement. There is a small pericardial effusion. Vessels: Moderate atherosclerotic changes in the aorta and coronary arteries. Mediastinum and veronica: Subcentimeter lymph nodes are seen. Chest wall and lower neck: Unremarkable. Abdomen: A hiatal hernia is seen. Bones: Degenerative changes in the thoracic spine. IMPRESSION: 1. Bronchial wall thickening may represent infectious/inflammatory airways disease. No evidence of c onsolidation. There is a trace left pleural effusion. 2. Cardiomegaly is noted. Interstitial thickening in the lungs may represent interstitial edema vers us fibrosis. 3. Small pericardial effusion. ACT 112: Negative or not required by law. Electronically signed by: True Fagan M.D. 11/09/2024 11:32 AM
[2024-11-09] MEDS: predniSONE 20 MG TAB PO SCH (17:12)
[2024-11-09] MEDS: FAMOTIDINE 20 MG TAB PO SCH (20:13)
[2024-11-09 20:32] VITALS: RESP 18
[2024-11-10 06:41] LABS: Basophils # (auto) 0.02 K/uL (0.00-0.20); Basophils % (auto) 0.2 %; Hematocrit (blood only) 39.1 % (42.0-52.0); Hemoglobin 13.5 g/dl (14.0-18.0); Immature Granulocytes # (auto) 0.04 K/uL (0.01-0.20); Immature Granulocytes % (auto) 0.3 %; Lymphocytes # (auto) 1.42 K/uL (1.20-3.40); Lymphocytes % (auto) 11.7 %; Mean Corpuscular Hemoglobin 31.5 pg (25.0-34.0); Mean Corpuscular Hgb Conc 34.5 g/dL (32.0-36.0); Mean Corpuscular Volume 91.1 fL (80.0-100.0); Mean Platelet Volume 10.8 fL (9.4-12.4); Monocytes # (auto) 0.99 K/uL (0.11-0.59); Monocytes % (auto) 8.2 %; Neutrophils # (auto) 9.65 K/uL (1.40-6.50); Neutrophils % (auto) 79.6 %; Platelet Count 138 K/uL (130-400); RDW Coefficient of Variation 13.2 % (11.5-14.5); RDW Standard Deviation 43.9 fL (36.4-46.3); Red Blood Count 4.29 M/uL (4.70-6.10); White Blood Count 12.12 K/ul (4.8-10.8)
[2024-11-10 07:03] LABS: BUN Creatinine Ratio 23.3 (10-20); Calcium 9.1 mg/dl (8.6-10.3); Creatinine Clr Calc Pharmacy 39.8 ml/min; Potassium 4.5 mmol/L (3.5-5.1)
[2024-11-10 07:38] VITALS: TEMP 97.5
--- NOTE | 2024-11-10 10:13 | Hospitalist Progress Note ---
Date of Service November 10, 2024 Assessment & Plan (1) Chest pain: Plan: 84-year-old male with past medical history significant for hyperlipidemia, paroxysmal atrial fibrillation, pulmonary hypertension, chronic combined systolic and diastolic CHF, mitral valve insufficiency, mitral valve prolapse, moderate to severe mitral regurgitation, generalized osteoarthritis, gouty arthropathy, tobacco use disorder, who lives at home comes because of chest pain. Chest pain Small pericardial effusion on CT chest Patient presents to the hospital with pleuritic chest pain Chest x-ray shows cardiomegaly and mild pulmonary edema CT chest shows small pericardial effusion with interstitial thickening that may represent interstitial edema versus fibrosis. EKG shows l atrial fibrillation with low QRS voltage Echocardiogram shows EF of 45 to 50%; moderate to severe mitral regurgitation. ESR and CRP elevated Cardiology consulted for comanagement; recommend colchicine and prednisone 20 mg for pleuritic chest pain. Monitor on telemetry Paroxysmal atrial fibrillation On Eliquis Will monitor on temetry CKD stage III Baseline creatinine 1.1 Presented with creatinine 1.4 continue Lasix and spironolactone and losartan and monitor History of gout On allopurinol Hypertension- continue home meds Chronic combined systolic and diastolic CHF EF 45 to 49% Has mitral valve prolapse and severe mitral regurgitation, nonsurgical medical management requested by patient per records continue lasix We will monitor for volume overload Tobacco use disorder Snuffs tobacco Counseling DVT prophylaxis Eliquis Disposition Observation med/telemetry Full code. Please note the above document was generated using voice recognition software. It may contain grammatical, syntax or spelling errors. Any formal questions or concerns about the content, text or information contained within the body of this dictation should be directly addressed to the provider for clarification Admission and Anticipated Discharge Date Admission Date: November 09, 2024 Subjective Patient seen and examined at bedside. He reports the chest pain has significantly improved. No significant events overnight Review of Systems Review of Systems: All systems reviewed & are unremarkable except as noted in Subjective Physical Exam Physical Exam: General- Not in distress Head- atraumatic Eyes- PERRL. ENT- oropharynx clear Neck- supple, no JVD. Lungs- clear to auscultation no wheezing or crackles. Heart- irregular;systolic murmur in mitral area,, no gallop. Abdomen- normal bowel sounds, soft, nontender, no distension. Extremities- trace pretibial edema present, no erythema seen Neuro- alert, oriented PERRL, no facial palsy; no dysarthria; moves extremities. Results & Data Results & Data Vital Signs (Past 12 Hours) Vital Signs Temp Pulse Pulse Resp BP Pulse Ox O2 Del Method 11/10/24 07:37 36.4 C L 56 L 18 112/70 98 Nasal Cannula 11/10/24 02:56 36.6 C 57 L 18 108/61 96 Nasal Cannula 11/10/24 00:17 Nasal Cannula 11/09/24 23:17 59 L 11/09/24 22:25 36.6 C 54 L 18 112/70 95 Nasal Cannula O2 Flow Rate 11/10/24 07:37 1 11/10/24 02:56 1 11/10/24 00:17 1 11/09/24 23:17 11/09/24 22:25 1 (1) Chest pain Chest pain type: unspecified Qualified Code(s): R07.9 - Chest pain, unspecified
[2024-11-10 11:33] VITALS: BP 120/77; PULSE 60; O2SAT 97
--- NOTE | 2024-11-10 12:58 | Cardiology Progress Note ---
Date of Service November 10, 2024 Assessment & Plan (1) Chest pain, pleuritic: (2) Chronic a-fib: Plan Pleuritis versus pleuropericarditis. No pericardial effusion on echo, but a small circumferential effusion noted on CT chest. Complete 3 months course of colchicine 0.6 mg daily. Proceed with long taper of low dose prednisone , starting at 20 mg and tapering to off over 3 weeks with continue pepcid or PPI for GI prophylaxis. Admission and Anticipated Discharge Date Admission Date: November 09, 2024 Subjective Patient seen in follow up. Feels improved. Able to take a deep breath with only minimal residual discomfort. Telemetry reveals rate controlled AF. Physical Exam Physical Exam: General: Alert, no distress, comfortable and cooperative Skin: No rash. Eyes: PER. Conjunctiva pink, sclera clear. HENT: Normocephalic. Atraumatic. Neck: No JVD. No carotid bruits. Heart: Irregularly irregular at 60 bpm. Grade III/ apical systolic murmur. No diastolic murmur. Lungs: Clear to auscultation. Abdomen: +BS. Soft. Nontender. No masses. No organomegaly. Extremities: Trivial pretibial edema. No clubbing. No cyanosis Limited neurological examination: No focal deficit. Results & Data Vital Signs (Past 12 Hours) Vital Signs Temp Pulse Pulse Resp BP Pulse Ox O2 Del Method 11/10/24 11:32 36.4 C L 60 18 120/77 97 Room Air 11/10/24 10:15 55 L 11/10/24 07:37 36.4 C L 56 L 18 112/70 98 Nasal Cannula 11/10/24 02:56 36.6 C 57 L 18 108/61 96 Nasal Cannula O2 Flow Rate 11/10/24 11:32 11/10/24 10:15 11/10/24 07:37 1 11/10/24 02:56 1
--- NOTE | 2024-11-10 13:39 | Electrocardiogram Report ---
Test Reason : Blood Pressure : */* mmHG Vent. Rate : 59 BPM Atrial Rate : 384 BPM P-R Int : * ms QRS Dur : 98 ms QT Int : 474 ms P-R-T Axes : * 87 65 degrees QTcB Int : 469 ms Atrial flutter with variable A-V block Low voltage QRS Abnormal ECG When compared with ECG of 09-Nov-2024 02:35, No significant change Confirmed by Edis Rivera ([id number]) on 11/10/2024 1:39:21 PM Referred By: REFERRED SELF Confirmed By: Edis Rivera
--- NOTE | 2024-11-10 15:01 | Discharge Summary ---
Date of Service November 10, 2024 Admission HPI Per Admitting Provider 84-year-old male with past medical history significant for hyperlipidemia, paroxysmal atrial fibrillation, pulmonary hypertension, chronic combined systolic and diastolic CHF, mitral valve insufficiency, mitral valve prolapse, moderate to severe mitral regurgitation, generalized osteoarthritis, gouty arthropathy, tobacco use disorder, who lives at home comes because of chest pain. Patient was watching TV around 10:30 PM he noticed pain all across his chest ,pressure-like feeling 5/10 in severity. It was radiating to left neck and shoulder region. Chest pain was present while ambulating at that time. Around 12:30am at night called ambulance and came to the ER. Currently while resting there is no pain. But when he takes deep breath chest is hurting. Denies any shortness of breath. Has some cough. No fevers. No headache or dizziness. No runny nose or sore throat . No nausea. No sweating. No abdominal pain. Normal bowel and bladder movements. Currently resting comfortably and hemodynamically stable.Daughters in room. Past med history. As mentioned above Past surgical history. Right knee bursectomy and I&D. Kidney stone removal x 2. Social history. she was tobacco 1 can for 3 days started in 1957. Alcohol occasional. No drug use. Family history. Father had skin and bladder cancer. Heart disorder. Mother had diabetes. Sister has diabetes. Sister has hypertension. Admission Exam Per Admitting Provider General- Not in distress Head- atraumatic Eyes- PERRL. ENT- oropharynx clear Neck- supple, no JVD. Lungs- clear to auscultation no wheezing or crackles. Heart- regular rhythm;systolic murmur in mitral area,, no gallop. Abdomen- normal bowel sounds, soft, nontender, no distension. Extremities- trace pretibial edema present, no erythema seen Neuro- alert, oriented PERRL, no facial palsy; no dysarthria; moves extremities. Principal Diagnosis Chest pain Pleurisy and Pericarditis Discharge Exam General- Not in distress Head- atraumatic Eyes- PERRL. ENT- oropharynx clear Neck- supple, no JVD. Lungs- clear to auscultation no wheezing or crackles. Heart- irregular;systolic murmur in mitral area,, no gallop. Abdomen- normal bowel sounds, soft, nontender, no distension. Extremities- trace pretibial edema present, no erythema seen Neuro- alert, oriented PERRL, no facial palsy; no dysarthria; moves extremities. Discharge Data Allergies Allergy/AdvReac Type Severity Reaction Status Date / Time aspirin Allergy Unknown Verified 05/12/23 03:13 Consultations 11/09/24 03:46 ED Decision to Admit Stat 11/09/24 08:00 Consult Cardiology Routine Ordered Studies 11/09/24 09:43 CT chest without contrast [CT chest diagnostic wo con] Routine Hospital Course (1) Chest pain: 84-year-old male with past medical history significant for hyperlipidemia, paroxysmal atrial fibrillation, pulmonary hypertension, chronic combined systolic and diastolic CHF, mitral valve insufficiency, mitral valve prolapse, moderate to severe mitral regurgitation, generalized osteoarthritis, gouty arthropathy, tobacco use disorder, who lives at home comes because of chest pain. Chest pain Small pericardial effusion on CT chest Patient presents to the hospital with pleuritic chest pain Chest x-ray shows cardiomegaly and mild pulmonary edema CT chest shows small pericardial effusion with interstitial thickening that may represent interstitial edema versus fibrosis. EKG shows l atrial fibrillation with low QRS voltage Echocardiogram shows EF of 45 to 50%; moderate to severe mitral regurgitation. ESR-33 and CRP -14 Patient was started on colchicine and prednisone; he reported significant improvement in the chest pain. Patient was discharged home with prescription for colchicine and prednisone. Patient to follow-up with PCP and repeat CRP, ESR in 1 week. Please note the above document was generated using voice recognition software. It may contain grammatical, syntax or spelling errors. Any formal questions or concerns about the content, text or information contained within the body of this dictation should be directly addressed to the provider for clarification Total Time Total Time Spent Total Time Spent (In Minutes): 45 Total Time Includes: Examination of the Patient, Discharge Planning, Medication Reconciliation, Communication With Other Providers and Other Discharge Plan Discharge Items Patient Disposition: Home - Self-Care Reason For Visit: CHEST PAIN Discharge Diagnosis: Possible pleuritis versus pleuropericarditis Activity: Resume your previous activity Non-emergency contact: Primary Care Provider Call non-emergency contact if: you have any medication questions and your symptoms worsen Follow-up/Referrals: Susan Webster MD [Primary Care Provider] - Diet: Regular Addtl Attending Provider Instructions: You were admitted to the hospital to the hospital with chest pain. You were evaluated by cardiology; the cause for the pain is likely inflammation of the covering of the lung/heart. You are prescribed following medication: 1) Take colchicine 0.6 mg once a day. It can cause GI discomfort and diarrhea sometimes; please follow-up with your primary care doctor if you experience any symptoms. 2) Take prednisone 10 mg in the following manner: Take prednisone 20 mg( 2 tablets) for 7 days, then Take prednisone 10 mg (1 tablets) for 7 days, then Take prednisone 5 mg(1/2 tablets) for 7 days Pending Studies at Discharge: No Stand-Alone Forms: My [facility], Smoking Cessation Medications and DC Order Prescriptions: New colchicine [Colcrys] 0.6 mg Tablet 0.6 mg PO QAM Qty: 90 0RF prednisone 10 mg tablet See Taper PO DAILY Qty: 25 0RF Taper: Taper, Blank 20 mg DAILY for 7 Days 10 mg DAILY for 7 Days 5 mg DAILY for 7 Days Continued losartan 25 mg tablet 25 mg PO QAM zinc gluconate 50 mg Tablet 50 mg PO 3XWK Patient Comments: takes every other day cholecalciferol (vitamin D3) [Vitamin D3] 25 mcg (1,000 unit) Tablet 25 mcg PO QAM Eliquis 5 mg tablet 5 mg PO BID allopurinol 100 mg tablet 200 mg PO QAM spironolactone 25 mg tablet 12.5 mg PO QAM furosemide 20 mg tablet 20 mg PO QAM Discharge Orders: Discharge Order (Routine); Ordered 11/10/24 Ordered By: Walker Teran Admission Data Admit Date/Time: 11/09/24 05:13 Attending Provider: Walker Teran Admit Provider: Charlie Spencer Primary Care Provider: Susan Webster Other Providers: Charlie Spencer; Fran Membreno Other Interventions: Discharge Summary Assessment (RN) Last Done: 11/10/24 13:53
== END 2024-11-10 15:02 | disposition home or self-care (01) ==
LOC: EDINP 02:30 → ED 02:30 → EDINP 05:37 → 2W 15:59

== ENCOUNTER 2024-12-04 02:32 | Observation (INO) ==
--- OUTSIDE RECORDS SUMMARY | 2024-12-04 02:36 | External Medical Summary | Summary of Care ---
Author Name Unknown Organization [facility] Address [address] [facility] [place] [address] Phone [phone] Care Team Providers Care Quality Assurance Coach Name Role Phone Susan Webster MD Primary Care Provide r Encounter Details Date Type Department Care Team (Late st Contact Info) Description 11/10/2024 Orders Only Family Medicine [address] [phone] Susan Webster MD [address] [place], [place] [address] [id number] Allergies Active Allergy Reactions Criticality Noted Date Comments Aspirin High 05/31/2022 Other reaction(s): sick to stomach documented as of this encounter (statuses as of 11/10/2024) Medications Zinc 50 MG Oral Tablet Take [...] as of this encounter (statuses as of 11/10/2024) Active Problems Problem Noted Date Diagnosed Date Pulmonary hypertension 10/30/2024 Chronic combined systolic an d diastolic congestive heart failure 10/30/2024 Mitral valve prolapse 07/28/2021 Moderate to severe mitral regurgitation 07/28/20 21 Gouty arthropathy 07/21/2021 Paroxysmal atrial fibrillation 07/21/2021 Mitral valve insufficiency 07/15/2018 History of nonmelanoma skin cancer 02/28/2015 Overview (07/09/2024): 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 04/10, L preauricular region 02/12, L taoism 05/15, scalp 07/24), 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) Dyslipidemia, goal LDL below 130 02/10/2013 Generalized osteoarthritis 08/29/2010 Tobacco use disorder 08/12/2008 documented as of this encounter (statuses as of 11/10/2024) Resolved Problems Problem Noted Date Diagnosed Date [...] as of this encounter (statuses as of 11/10/2024) Immunizations Name Administration Dates Next Due COVID-19 [...] 01/21/2025 9:30 AM EST Office Visit Cardiology [address] [place] [id number] Jerad Bashir PA-C [address] [place] [id number] 04/29/2025 10:00 AM EDT Laboratory Laboratory [address] [place] [phone] [facility] [address] [place] [address] 05/07/2025 2:20 PM EDT Office Visit Family Medicine [address] [place] [phone] Susan Webster MD [address] [place] [address] [place] [id number] 07/21/2025 8:20 AM EDT Office Visit Dermatology [address] [place] [phone] Breanna Alejandro PA-C [address] [place] [address] [place] [id number] Health Maintenance Due Date Last Done Comments [...] Procedure Name Priority Date/Time Associated Diagnosis Comments CT CHEST WO CONTRAST Routine 11/09/2024 documented in this encounter Results * CT CHEST WO CONTRAST (11/09/2024) Anatomical Region Laterality Modality Chest, Body, Cardio Other 11/09/2024 Jerad Bashir PA-C RAD CT Final Resul t documented in this encounter Care Teams Quality Assurance Coach Relationship Specialty Start Date End Date Susan Webster MD [address] [place] [address] [place] [id number] PCP - General Family Medicine 07/05/15 documented as of this encounter
--- OUTSIDE RECORDS SUMMARY | 2024-12-04 02:36 | External Medical Summary | Summary of Care ---
Author Name Unknown Organization [facility] Address [address] [facility] [place] [address] Phone [phone] Care Team Providers Care Criminology Professor Name Role Phone Susan Webster MD Primary Care Provide r Reason for Visit * Reason Onset Date Comments Hospital Follow-Up Hospital Follow-Up 11/17/2024 Encounter Details Date Type Department Care Team (Late st Contact Info) Description 11/17/2024 2:20 PM EST Office Visit Family Medicine [address] [place] [address] Susan Webster MD [address] [place] [address] [place] [address] Hospital discharge follow-up*; Acute idiopathic pericarditis; Paroxysmal atrial fibrillation (HCC); Pulmonary hypertension (HCC); Chronic combined systolic and diastolic congestive heart failure (HCC); Dyslipidemia, goal LDL below 130 Allergies Active Allergy Reactions Criticality Noted Date Comments Aspirin High 05/31/2022 Other reaction(s): sick to stomach documented as of this encounter (statuses as of 11/17/2024) Medications Zinc 50 MG Oral Tablet Take 1 Tablet by mouth every other day. Active D3-1000 25 MCG (1000 UT) Oral Tablet (Cholecalciferol) Take 1 Tablet by mouth in the morning. Active Spironolactone 25 MG Oral Tablet (Aldactone) Take 0.5 Tablets by mouth in the morning. 45 Tablet 3 4 Active Furosemide 20 MG Oral Tablet (Lasix)Indications :Heart failure, diastolic, with acute decompensation (HCC) Take 1 Tablet by mouth in the morning. 90 Tablet 3 4 Active Eliquis 5 MG Oral Tablet (Apixaban)Indicati ons:Paroxysmal atrial fibrillation (HCC) take 1 tablet in the morning and 1 tablet at bedtime 180 Tablet 3 4 Active Losartan Potassium 25 MG Oral Tablet (Cozaar)Indication s:Mitral valve prolapse,Frequent PVCs,Permanent atrial fibrillation (HCC),Heart failure, diastolic, with acute decompensation (HCC) TAKE ONE TABLET BY MOUTH IN THE MORNING 90 Tablet 3 4 Active Allopurinol 100 MG Oral Tablet (Zyloprim)Indicati ons:Gouty arthropathy TAKE TWO TABLETS BY MOUTH IN THE MORNING 180 Tablet 1 4 Active Colchicine 0.6 MG Oral Capsule Take 1 Capsule by mouth in the morning. Active predniSONE 10 MG Oral Tablet (Deltasone) Take 1 Tablet by mouth in the morning. Take prednisone 20 mg( 2 tablets) for 7 days, then Take prednisone 10 mg (1 tablets) for 7 days, then Take prednisone 5 mg(1/2 tablets) for 7 days. 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, L zoroastrianism 05/15, scalp 07/24), 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 Never true 11/11/20 24 Within the past 12 months, t he food you bought just didn't last and you didn't have money to get more. Never true 11/11/2024 Childcare Answer Date Recorded Do you feel overwhelmed with taking care of a child, family member or friend? No 11/11/2024 Does your family need help f inding childcare? (Household - for ages 0-17 years) Not on file 11/11/2024 Clothing Answer Date Recorded Have you been unable to get clothing when it was really needed? No 11/11/2024 Is your family able to get c lothes or diapers when needed? (Household - for ages 0-17 years) Not on file 11/11/2024 Personal Safety Answer Date Recorded Do you feel unsafe or have concerns for your saf ety? No 11/11/2024 Do you have concerns for you r family's safety? (Household - for ages 0-17 years) Not on file 11/11/2024 Utilities Answer Date Recorded Do you have trouble paying y our heating, water, or electric bill? No 11/11/2024 Is your family able to pay t he heat, water, or electric bill? (Household - for ages 0-17 years) Not on file 11/11/2024 Does your family have access to good internet? (Household - for ages 0-17 years) Not on file 11/11/2024 Employment Status Answer Date Recorded Are you unemployed or without regular income? No 11/11/2024 Does the household have a [facility] source [facility] income? (Household - for ages 0-17 years) Not on file 11/11/2024 Social Connections Answer Date Recorded How often do you feel lonely or isolated from th ose around you? Rarely 11/11/2024 Financial Resource Strain Answer Date R ecorded Do you have any trouble payi ng for your medications, or do you think you might in the future? No 11/11/2024 Does your family have troubl e paying for medicine? (Household - for ages 0-17 years) Not on file 11/11/2024 Transportation Needs Answer Date Record ed Do you have trouble getting a ride to medical visits or work? (Adult - for ages 18 years and over) Not on file 11/11/2024 Does your family have a hard time getting a ride to doctors visits? (Household - for ages 0-17 years) Not on file 11/11/2024 Has lack of transportation k ept you from medical appointments, meetings, work, or from getting things needed for daily living? Check all that apply. No 11/11/2024 Do you (or your family) have trouble finding or paying for a ride (transportation)? (Household - for ages 0-17 years) Not on file 11/11/2024 Housing Stability Answer Date Recorded Do you currently live in a s helter or have no steady place to sleep at night? No 11/11/2024 Do you think you are at risk of becoming homeless? (Adult - for ages 18 years and over) Not on file 11/11/2024 Does your family worry about paying for your home or becoming homeless? (Household - for ages 0-17 years) Not on file 1 01/12/2024 Are you homeless or worried that you might be in the future? No 11/11/2024 Are you (or your family) yisel eless or worried that you might be in the future? (Household - for ages 0-17 years) Not on file Food Insecurity Answer Date Recorded Do you need food for this week? No 11/11/2024 Are you able to get enough f ood for your family? (Household - for ages 0-17 years) Not on file 11/11/2024 Does your family need food t his week? (Household - for ages 0-17 years) Not on file 11/11/2024 Do you always have enough fo od for your family? (Household - for ages 0-17 years) Not on file 11/11/2024 Sex and Gender Information Value Date Recorded [...] Sign Reading Time Taken Comments Blood Pressure 112/70 11/17/2024 2:02 PM EST Pulse 62 11/17/2024 2:02 PM EST Temperature 36.4 C (97.5 F) 11/17/2024 2:02 PM ES T Respiratory Rate - - Oxygen Saturation - - Inhaled Oxygen Concentration - - Weight 72.1 kg (159 lb) 11/17/2024 2:02 PM EST Height - - Body Mass Index 26.46 10/30/2024 9:46 AM EST documented in this encounter Patient Instructions * Patient Instructions* Susan Webster MD - 11/17/2024 2:10 PM EST Taking Medicine Safely Medicine is given to help treat or prevent illness. But if you don't take it correctly, it might not help. It might even harm you. Your doctor or pharmacist can help you learn the right way to take your medicine. Listed below are some tips to help you take medicine safely. Safety Tips Have a routine for taking each medicine. Make it part of something you do each day, such as brushing your teeth or eating a meal. When you go to the hospital or your doctor's office, bring all your current medicines in their original boxes or bottles. If you can't do that, bring an up-to-date list of your medicines. Do not stop taking a prescription medicine unless your doctor tells you to. Doing so could make your condition worse. Do not share medicines. Let your doctor and pharmacist know of any allergies you have. Taking prescription medicines with alcohol, street drugs, herbs, supplements, or even some lygf-tmf-fxftjyv medicines can be harmful. Talk to your doctor or pharmacist before using any of these things while taking a prescription medicine. When filling your prescriptions, try using the same pharmacy for all your medicines. If not, let the pharmacist know what medicines you are already on. Keep medicines out of the reach of children and pets. Do not use medicine that has or that doesn't look or smell right. Get rid of it properly. To find out the right way to get rid of medicine: Call your [facility] or [facility]'s household trash and recycling service and ask if a drug take-back program is available in your community. Call your local pharmacy and ask the right way to get rid of the medicine. Go to http://www.fda.gov/ForConsumers/ConsumerUpdates/unr871383 to learn how to get rid of medicines safely. Using Generic Medicines Medicines have brand names and generic (chemical) names. When a medicine is first made, it is sold only under its brand name. Later, it can be made and sold as a generic. Generic medicines cost less than brand-name medicines and most work just as well. Most people can use the generic medicine instead of the brand-name medicine, unless their doctor says otherwise. [facility], [address] [place] [address]. All rights reserved. This information is not intended as a substitute for professional medical care. Always follow your healthcare professional's instructions. Coping with Your Diagnosis of a Chronic Health Condition If you have a chronic health condition, you have a problem that may not go away over time. Heart disease, asthma, arthritis, and diabetes are just a few of the chronic conditions that exist. Right now, these conditions have no known cure. But you can take an active role in managing your health. Coping with Your Diagnosis If you've just learned about your health condition, you may be angry, depressed, or afraid. Or you might feel relieved just to know what's wrong. Even if you've known about your health problem for a while, adjusting to it can be hard. But learning about your condition can help you cope. Look for books at your local library. If you have access to a computer, check the Internet. Or contact a group that focuses on your specific problem. Accepting Change Change is hard for most people. Yet right now you may be facing many changes. What you eat or the way you work may change. Your moods, and even your symptoms, might vary from day to day. Although it isn't easy, learning to accept change can help you feel more in control. Taking Control Feeling you have control can make living with your condition easier. Discuss treatment options withyour health care provider. The more you know, the more active you can be in your care. Moving Forward You may wonder whether you will be able to do the things you've always done. That depends on your age, the condition you have, and your goals. To make the most of each day, try to build caring relationships, be active, and eat right. Also, do your best to keep a sense of humor. Won [facility], [address] [place] [address], [place] [address]. All rights reserved. This information is not intended as a substitute for professional medical care. Always follow your healthcare professional's instructions. Taking an Active Role in Your Medicines Take the time to learn about your medicine. For instance, why are you taking it? What does it do? Work with your doctor or other health care providers to get the answers you need. Talk to your pharmacist about how to take each medicine, and ask for a fact sheet on each one. Ask Questions About Your Medicine What is the name of the medicine? Why do I need to take it? When should I take it? How should I take it: with water? with food? on an empty stomach? How much do I take? What do I do if I miss a dose? What side effects could it cause and which ones should I call the doctor about? Are there any foods or medicines I should avoid while taking this medicine? Keeping track of your medications? Name of medicine: Taken for: Dose: Time(s) to take it: Take an Active Role Fill all your prescriptions at the same pharmacy. This keeps your medicine history in one place. Talk to the pharmacist. Make sure you understand how to take each medicine. Ask for a fact sheet about each one. Tell your doctor and pharmacist about all the prescription and paej-req-zlcocyh medicines you take.This includes vitamins and herbal remedies. Tell your doctor and pharmacist if you have any medical conditions or allergies to any medicine or food, or if you are or . Keep a list of all your medicines. Use the sample to the right as a guide for the type of information needed. 9889-[address]176 [place] [address]. All rights reserved. This information is not intended as a substitute for professional medical care. Always follow your healthcare professional's instructions. documented in this encounter Progress Notes * Susan Webster MD - 11/17/2024 2:10 PM EST SUBJECTIVE: Rafy Stout Jr. is a 84 year old male. Chief Complaint Patient presents with Hospital Follow-Up Hospital Follow-Up Recent Admission: Patient was recently admitted to [facility] on 11/09/24. The date of discharge was 11/10/24. Discharge report received and reviewed. HPI: Brief Clinical History Mr. Stout is a 84 year old male last seen in Family Medicine [facility] on 10/30/2024 by Susan Webster He has a h/o the following chronic conditions indicated on the problem list: Chronic Conditions Chronic combined systolic and diastolic congestive heart failure (HCC) Paroxysmal atrial fibrillation (HCC) Pulmonary hypertension (HCC) Admitted to [facility] 11/09/24-11/10/24 with acute onset of chest pain radiating to his back and across the left shoulder and neck region. The pain was about 5/10 in severity when it started. He called EMSand was brought to the ED. CXR showed cardiomegaly with mild pulmonary edema. CT of the chest showed small pericardial effusion with interstitial thickening that may represent edema versus fibrosis. EKG showed atrial fibrillation with low QRS voltage. Echocardiogram showed EF of 45-50% and moderateto severe mitral regurgitation. ESR was 33 and CRP was 14. He was admitted and started on colchicine and prednisone for pericarditis with improvement. He was discharged on prednisone taper over 21 days and colchicine to continue for at least 3 months. To have ESR and CRP in 1 week. Is completing the prednisone and taking the colchicine. Has had pericarditis in the past. Has follow-up with cardiology 01/21/25. Appetite is good. Patient Active Problem List Diagnosis Tobacco use [...] MOUTH IN THE MORNING 180 Tablet 1 Colchicine 0.6 MG Oral Capsule Take 1 Capsule by mouth in the morning. predniSONE 10 MG Oral Tablet (Deltasone) Take 1 Tablet by mouth in the morning. Take prednisone 20 mg( 2 tablets) for 7 days, then Take prednisone 10 mg (1 tablets) for 7 days, then Take prednisone 5 mg(1/2 tablets) for 7 days. No current facility-administered medications for this visit. Current and discharge medications have been reconciled. Review of patient's allergies indicates: Allergen Reactions Aspirin Other reaction(s): sick to stomach OBJECTIVE: BP 112/70 | Pulse 62 | Temp 97.5 F (36.4 C) (Tympanic) | Wt 159 lb (72.1 kg) | BMI 26.46 kg/m| BSA 1.82 m Review Of Systems: Skin: pt denies, new or changing moles, pigmentation change, rash, scaling, itching, bruising, lumps or bumps, hair changes, nail changes Eyes: negative Ears/Nose/Throat: pt denies:, tinnitus, vertigo, frequent URI's, sinus trouble Respiratory: pt denies:, cough, sputum, pneumonia or bronchitis, asthma, and wheezing Cardiovascular: +as per HPI Gastrointestinal: pt. denies:, abdominal pain, bloating or excess gas, dysphagia, nausea, heartburn, blood in stool or black stools, constipation or change in bowel habits, diarrhea Genitourinary: pt denies:, nocturia, dysuria, and frequency Musculoskeletal: pt denies significant joint pain or stiffness Neurologic: pt denies:, headaches, syncope, and seizures Psychiatric: pt denies:, sleep disturbance, anxiety, nervousness, and depression Hematologic/Lymphatic/Immunologic: pt denies:, recurrent infections, immunodeficiency, anemia, bruising, bleeding disorder, fever, night sweats, chills, and weight loss Endocrine: pt denies:, thyroid disorder, cold intolerance, heat intolerance, and diabetes PHYSICAL EXAM: General: alert, healthy, no distress, well nourished, [...] Neck: supple, no adenopathy, no bruits Heart: irregularly irregular, no gallops, and +pericardial friction rub Lungs: chest symmetric with normal AP diameter, no chest deformities noted, no chest wall tenderness, lungs clear to auscultation Extremities: no edema, no clubbing, no cyanosis Neuro Exam: alert & oriented x 3 with fluent speech, no focal motor/sensory deficits, gait normal ASSESSMENT: Hospital discharge follow-up (Primary) - DISCH MED RECON CUR MED LIS Acute idiopathic pericarditis - CRP (INFLAMMATORY MARKER); Future; Expected date: 11/17/2024 - ERYTHROCYTE SEDIMENTATION RATE (ESR); Future; Expected date: 11/17/2024 Paroxysmal atrial fibrillation (HCC) Pulmonary hypertension (HCC) Chronic combined systolic and diastolic congestive heart failure (HCC) Dyslipidemia, goal LDL below 130 Follow Up: Return as scheduled. PLAN: Continue present medication(s): Schedule labs: ESR and CRP Patient education: Discussed pericarditis and to complete prednisone and colchicine as ordered. Follow-up with cardiology as scheduled. Follow up as scheduled. I spent a total of 30-39 minutes (exact time 35 mins) minutes on the date of service in preparation, delivery, and documentation of the care provided to Rafy Stout Jr. excluding any time spent in performance of separately billed services. Susan Webster MD documented in this encounter Nursing Notes * Alessia Maddox LPN - 11/17/2024 2:02 PM EST Hospital follow up Feels good now Had some chest, arm and neck pain. documented in this encounter Plan of Treatment Upcoming Encounters Date Type Department Care Team (Late st Contact Info) Description 01/21/2025 9:30 AM EST Office Visit Cardiology [address] [place] [address] Jerad Bashir PA-C [address] [place] [id number] 04/29/2025 10:00 AM EDT Laboratory Laboratory [address] [place] [phone] [place] [address] 05/07/2025 2:20 PM EDT Office Visit Family Medicine [address] [place] [phone] Susan Webster MD [address] [place] [address] [place] [id number] 07/21/2025 8:20 AM EDT Office Visit Dermatology [address] [place] [address] Breanna Alejandro PA-C [address] [place] [address] [place] [id number] Scheduled Orders Name Type Priority Associated Diagnoses Orde r Schedule CRP (INFLAMMATORY MARKER) Lab Routine Acute idiopathic pericarditis Expected: 11/17/2024 (Approximate), Expires: 11/17/2025 ERYTHROCYTE SEDIMENTATION RATE (ESR) Lab Routine Acute idiopathic pericarditis Expected: 11/17/2024 (Approximate), Expires: 11/17/2025 Health Maintenance Due Date Last Done Comments Adult Wellness Visit 09/12/2023 09/12/2022 Depression Screening 11/11/2025 11/11/2024 DTap/Tdap Vaccines (2 - Td or Tdap) [...] as of this encounter Visit Diagnoses Diagnosis Hospital discharge follow-up- Primary Other follow-up examination Acute idiopathic pericarditis Paroxysmal atrial fibrillation (HCC) Atrial fibrillation Pulmonary hypertension (HCC) Other 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
--- NOTE | 2024-12-04 02:46 | Emergency Department Note ---
Impression & Plan Substernal chest pain, Elevated troponin Admit to the [facility] ED Provider Note NAME: MARIAN WELLS Jr AGE: 84 SEX: Male INFORMANT: Patient ED PROVIDER(S): Bhavana Burns DO CHIEF COMPLAINT: Chest pain PLAN: Disposition: Admit to the [facility] MEDICAL DECISION MAKING: This is an 84-year-old male patient who developed substernal chest discomfort around 6:30 PM this evening while he was outside working on his furnace. The pain resolved on its own. However, it returned again around 10:30 PM this evening while watching TV. Patient took aspirin and nitroglycerin which seemed to give him some relief of the discomfort the pain then returned again and is still present. Patient was recently admitted to the hospital with chest pain found to have pericarditis and pericardial effusion. The cause of this was unknown according to the family. Tonight, laboratory studies reveal a mild leukocytosis with a white count of 13.1. H&H were normal. Glucose was 116. Troponin was increased at 24.5. Chest x-ray shows cardiomegaly and pulmonary vascular congestion. Patient has a history of atrial fibrillation and takes Eliquis. He was given a dose of IV Toradol and IV morphine here in the emergency department which did relieve some of the chest discomfort. He went on to receive a dose of IV Solu- Medrol which gave him even more pain relief. I discussed the case with the [facility]ist and they will evaluate for further inpatient care. Care/management discussed with: police manager and [facility] Triage Nursing notes: reviewed and agree with them. Vital Signs: reviewed and unremarkable Additional History obtained from: Family Prior/ Outside/ External records reviewed: I reviewed the patient's recent admission Differential Diagnosis: STEMI, NSTEMI, pericarditis, costochondritis, GERD, pericardial tamponade Diagnostics, independently interpreted by me: ECG: A-fib at a rate of [address] segment elevation or signs of ischemia. There is no ectopy. Repeat ECG: Atrial flutter at a rate of [address] segment elevation or signs of ischemia Cardiac Monitoring: A-fib at a rate of 64 Imaging studies: portable chest x-ray: Cardiomegaly with pulmonary vascular congestion as per my independent interpretation HPI: 84 year old Male arrives for evaluation of chest pain. Patient developed chest discomfort 6:30 PM this evening when he was outside working on his furnace. This subsided on its own. At 10:30 PM, the patient was watching TV and the chest pain returned. He took aspirin nitroglycerin and it subsided. The pain then returned and has been present ever since.. PAST MEDICAL HISTORY: See Below, PAST SURGICAL HISTORY: See Below, SOCIAL HISTORY: See Below, HOME MEDICATIONS: See list ALLERGIES: See list VITALS: See Below PHYSICAL EXAMINATION: HEENT: Head - normocephalic and atraumatic Pupils are equal, round, and reactive to light. Extraocular eye muscles are intact, and sclera are anicteric. Nose - moist nasal mucosa without discharge. Mouth - moist buccal mucosa. Oropharynx is nonerythematous and there is no tonsillar exudate or edema noted. Neck: Supple; no JVD, nuchal rigidity, cervical lymphadenopathy, or auscultated bruits. Heart: Irregularly irregular rhythm with a controlled rate. There is a normal S1 and S2 with no murmurs, clicks, or gallops appreciated. Lungs: Clear to auscultation bilaterally with no wheezes, rales, or rhonchi. Abdomen: Soft, completely nontender, nondistended, with good bowel sounds. There are no palpable pulsatile masses or hepatosplenomegaly. There is no guarding, rigidity, or rebound noted. Extremities: No evidence of cyanosis, clubbing, or edema. There are easily palpable peripheral pulses. Skin: warm and dry with good turgor and no rashes. Emergency department treatment: cardiac monitor technician, IV morphine, IV Zofran, IV Toradol, IV morphine, IV Solu-Medrol Emergency Department course: The patient was evaluated in room B-10. A complete history and physical was performed. An order was placed for continuous cardiac monitoring. The patient was in atrial fibrillation at a rate of 64. A twelve- lead EKG was obtained as described above. The patient was given a dose of morphine, IV Zofran, and IV Toradol. This gave him some relief of his discomfort. Portable chest x-ray was performed. Patient's chest pain returned again and a repeat ECG was performed. He was given a second dose of IV morphine and a dose of IV Solu-Medrol. This gave him moderate relief of his discomfort. I reviewed the laboratory and x-ray findings with the patient and his family. I discussed the case with the [facility] Hospitalist and they will evaluate for further inpatient care. Past Med/Surg History Problem List (Updated 12/04/24 @ 21:21 by Bhavana Burns DO) Elevated troponin (Acute) Substernal chest pain (Acute) Pericarditis Atypical chest pain PVS (persistent vegetative state) Tobacco use disorder Frequent PVCs Systolic and diastolic CHF, chronic Chronic a-fib Afib (Acute) Hyperglycemia (Acute) Severe mitral insufficiency Mitral valve prolapse Chest pain, pleuritic Chest pain (Acute) Septic prepatellar bursitis of right knee (Acute 03/11/14) Medical History Persistent atrial fibrillation Social History Smoking Status: Never smoker Tobacco Type: Smokeless Tobacco (Dip or Chew) Second Hand Exposure: No; Do You Dip or Chew Tobacco: Yes; Hx Alcohol Use: Yes Alcohol type: beer Hx Substance Use: No Preferred Language: Romansh Communication Ability: Effective Parachute Crown Sewer Required: No Beliefs That Will Affect Care: None Current Living Situation: Alone Feels Safe at Home: Yes Assistive Devices: Bedside Commode, Cane and Walker Allergies Allergies Allergy/AdvReac Type Severity Reaction Status Date / Time aspirin Allergy Unknown Verified 12/04/24 02:46 Home Meds Home Medications Medication Instructions Recorded Confirmed apixaban 5 mg tablet (Eliquis) 5 mg PO BID 05/12/23 12/04/24 cholecalciferol (vitamin D3) 25 25 mcg PO QAM 05/12/23 12/04/24 mcg (1,000 unit) tablet (Vitamin D3) losartan 25 mg tablet 25 mg PO QAM 05/12/23 12/04/24 zinc gluconate 50 mg tablet 50 mg PO 3XWK 05/12/23 12/04/24 allopurinol 100 mg tablet 200 mg PO QAM 11/09/24 12/04/24 furosemide 20 mg tablet 20 mg PO QAM 11/09/24 12/04/24 spironolactone 25 mg tablet 12.5 mg PO QAM 11/09/24 12/04/24 Previous Rx's Medication Instructions Recorded colchicine 0.6 mg tablet (Colcrys) 0.6 mg PO QAM #90 tabs 12/10/24 Results & Data (ED) Vital Signs Vital Signs - 24 hr 12/04/24 02:42 12/04/24 02:43 12/04/24 03:37 Temperature 36.8 C Temperature Source Oral Pulse Rate 76 88 Pulse Rate [Apical] 87 Respiratory Rate 21 28 H Respiratory Effort / Characteristics Respiratory Depth Respiratory Pattern Blood Pressure 140/87 Blood Pressure [Right Arm] 136/74 Blood Pressure Mean 104 Blood Pressure Mean [Right Arm] 94 Pulse Oximetry 96 95 Oxygen Delivery Method Room Air Room Air Sepsis Recent Fever Within 48 Hours No Sepsis New/Unexplained Change in Mental Status No Sepsis Action Taken by Nursing No Action Required 12/04/24 05:17 12/04/24 06:34 12/04/24 06:36 Temperature Temperature Source Pulse Rate 77 Pulse Rate [Apical] 77 75 Respiratory Rate 21 21 Respiratory Effort / Characteristics Non-Labored Spontaneous Non-Labored Spontaneous Respiratory Depth Normal Normal Respiratory Pattern Regular Regular Blood Pressure Blood Pressure [Right Arm] 136/74 114/76 Blood Pressure Mean Blood Pressure Mean [Right Arm] 94 88 Pulse Oximetry 94 93 Oxygen Delivery Method Room Air Room Air Sepsis Recent Fever Within 48 Hours Sepsis New/Unexplained Change in Mental Status Sepsis Action Taken by Nursing Laboratory Data 12/04/24 02:44 12/04/24 02:44 Lab Results 12/04/24 12/04/24 12/04/24 Range/Units 02:44 04:51 05:53 WBC 13.12 H (4.8-10.8) K/ul RBC 4.66 L (4.70-6.10) M/uL Hgb 14.7 (14.0-18.0) g/dl Hct 43.5 (42.0-52.0) % MCV 93.3 (80.0-100.0) fL MCH 31.5 (25.0-34.0) pg MCHC 33.8 (32.0-36.0) g/dL RDW Std Deviation 46.5 H (36.4-46.3) fL RDW Coeff of Storm 13.6 (11.5-14.5) % Plt Count 127 L (130-400) K/uL MPV 10.9 (9.4-12.4) fL Immature Gran % (Auto) 0.5 % Neut % (Auto) 86.9 % Lymph % (Auto) 7.5 % [place] % (Auto) 4.3 % Eos % (Auto) 0.5 % Baso % (Auto) 0.3 % Neut # (Auto) 11.40 H (1.40-6.50) K/uL Lymph # (Auto) 0.99 L (1.20-3.40) K/uL [place] # (Auto) 0.57 (0.11-0.59) K/uL Eos # (Auto) 0.06 (0.00-0.50) K/uL Baso # (Auto) 0.04 (0.00-0.20) K/uL Immature Gran # (Auto) 0.06 (0.01-0.20) K/uL ESR 13 (0-20) mm/hr Sodium 136 (136-145) mmol/L Potassium 4.3 (3.5-5.1) mmol/L Chloride 100 (98-107) mmol/L Carbon Dioxide 30 (21-32) mmol/L Anion Gap 6 (3-11) BUN 19 (6-23) mg/dl Creatinine 1.09 (0.6-1.4) mg/dl Est Cr Clr Drug Dosing Not Reportable eGFR 67.76 BUN/Creatinine Ratio 17.4 (10-20) Glucose 116 H (70-99(Fasting)) mg/dl Calcium 9.2 (8.6-10.3) mg/dl Magnesium 1.8 (1.7-2.4) mg/dl Total Bilirubin 1.0 (0.2-1.0) mg/dl AST 24 (13-39) U/L ALT 23 (7-52) U/L Alkaline Phosphatase 122 H (34-104) U/L Troponin I High Sens 24.5 H 27.8 H (0-20) pg/ml Total Protein 6.8 (6.0-8.3) gm/dl Albumin 3.8 (3.4-5.0) gm/dl Globulin 3.0 (2.5-4.0) gm/dl Albumin/Globulin Ratio 1.3 (0.9-2) Lipase 33 (11-82) U/L Adenovirus (PCR) Not Detected (NotDetected) B. pertussis DNA (PCR) Not Detected (NotDetected) B.parapertussis DNA PCR Not Detected (NotDetected) Lyme Disease Screen Cancelled C. pneumoniae DNA (PCR) Not Detected (NotDetected) Coronavirus OC43 (PCR) Not Detected (NotDetected) Coronavirus HKU1 (PCR) Not Detected (NotDetected) Coronavirus 229E (PCR) Not Detected (NotDetected) SARS-CoV-2 (PCR) Not Detected (NotDetected) Coronavirus NL63 (PCR) Not Detected (NotDetected) Human Metapneumovir PCR Not Detected (NotDetected) Influenza Type A (PCR) Not Detected (NotDetected) Influenza Type B (PCR) Not Detected (NotDetected) M. pneumoniae (PCR) Not Detected (NotDetected) Parainfluenza 1 (PCR) Not Detected (NotDetected) Parainfluenza 2 (PCR) Not Detected (NotDetected) Parainfluenza 3 (PCR) Not Detected (NotDetected) Parainfluenza 4 (PCR) Not Detected (NotDetected) RSV (PCR) Not Detected (NotDetected) Entero/Rhino (PCR) Not Detected (NotDetected) Administered Medications Allopurinol ([facility]ol 100 Mg Tab) [facility] Stop: 01/03/25 09:59 Last Admin: 12/04/24 10:27 Dose: 200 mg Documented By: CARLYN Apixaban (Apixaban 5 Mg Tablet) 5 mg PO BID [facility] Stop: 01/03/25 09:59 Last Admin: 12/04/24 10:27 Dose: 5 mg Documented By: GGG Colchicine (Colchicine 0.6 Mg Tab) 0.6 mg PO QAM [facility] Stop: 01/03/25 09:59 Last Admin: 12/04/24 10:26 Dose: 0.6 mg Documented By: GGG Doxycycline Hyclate (Doxycycline Hyclate 100 Mg Cap) 100 mg PO Q12H [facility] Stop: 12/14/24 12:44 Last Admin: 12/04/24 15:30 Dose: 100 mg Documented By: SNS Furosemide (Furosemide 20 Mg Tab) [facility] Stop: 01/03/25 08:59 Last Admin: 12/04/24 10:26 Dose: 20 mg Documented By: CARLYN Losartan Potassium (Losartan Potassium 25 Mg Tab) [facility] Stop: 01/03/25 08:59 Last Admin: 12/04/24 10:27 Dose: 25 mg Documented By: CARLYN Vitamin D (Cholecalciferol 25 Mcg (1000 Units) Tab) 25 mcg PO QAM [facility] Stop: 01/03/25 09:59 Last Admin: 12/04/24 10:27 Dose: 25 mcg Documented By: CARLYN Discontinued Medications Ketorolac Tromethamine (Ketorolac Tromethamine 15 Mg/Ml Vial) 15 mg IV NOW STA Stop: 12/04/24 03:08 Last Admin: 12/04/24 03:31 Dose: 15 mg Documented By: MED Methylprednisolone (Methylprednisolone 125 Mg/2 Ml Vial) 125 mg IV NOW STA Stop: 12/04/24 04:25 Last Admin: 12/04/24 05:12 Dose: 125 mg Documented By: MED Morphine Sulfate (Morphine Sulfate 2 Mg/Ml Carp) 2 mg IV NOW STA Stop: 12/04/24 03:08 Last Admin: 12/04/24 03:33 Dose: 2 mg Documented By: MED Morphine Sulfate (Morphine Sulfate 2 Mg/Ml Carp) 2 mg IV NOW STA Stop: 12/04/24 04:16 Last Admin: 12/04/24 04:24 Dose: 2 mg Documented By: MED Ondansetron HCl (Ondansetron Inj 2 Mg/Ml 2 Ml Vial) 4 mg IV NOW STA Stop: 12/04/24 03:08 Last Admin: 12/04/24 03:28 Dose: 4 mg Documented By: ARGENIS Oxycodone HCl (Oxycodone Hcl Ir 5 Mg Tab (Immediate Release)) 5 mg PO NOW STA Stop: 12/04/24 07:16 Last Admin: 12/04/24 07:50 Dose: 5 mg Documented By: CARLYN Prednisone (Prednisone 5 Mg Tab) 5 mg PO DAILY [facility] Stop: 01/03/25 12:59 Last Admin: 12/04/24 15:29 Dose: Not Given Documented By: OREN Tramadol HCl (Tramadol Hcl 50 Mg Tablet) 25 mg PO NOW STA Stop: 12/04/24 07:06 Last Admin: 12/04/24 10:29 Dose: Not Given Documented By: CARLYN Imaging Data Radiologist's Impression: Chest X-Ray 12/04/24 03:04 EXAM: XR chest 1V portable CLINICAL HISTORY: CHEST PAIN [facility] TECHNIQUE: An X-ray image of the chest is obtained in AP projection. COMPARISON: 11/09/2024. FINDINGS: Pulmonary Parenchyma: Prominent broncho vascular markings. Lungs are clear bilaterally. No evidence of consolidation, collapse, or focal opacities. No pulmonary nodules are identified. No evidence of pleural effusion or pleural thickening. Heart and Mediastinum: Cardiomegaly. No mediastinal widening or masses. No hilar or mediastinal lymphadenopathy. Bony Thorax: The bony thorax appears intact without fractures or deformities. Soft Tissues: Soft tissues overlying the chest wall are unremarkable. IMPRESSION: 1. Prominent broncho vascular markings. This could represent pulmonary congestion due to cardiac disease. 2. Cardiomegaly. 3. No significant interval changes compared to prior study. Electronically signed by Cora Duong 12-04-2024 04:28 AM Discharge Plan Visit Data Chief Complaint: Chest Pain Stated Complaint: Chest Pain, Chest Tightness ED Provider: Bhavana Burns Discharge Problem: Substernal chest pain, Elevated troponin Patient Disposition: Admitted As Inpatient Discharge Instructions Interventions: ED Discharge Assessment Last Done: 12/04/24 09:50
[2024-12-04 03:17] LABS: Basophils # (auto) 0.04 K/uL (0.00-0.20); Basophils % (auto) 0.3 %; Eosinophils # (auto) 0.06 K/uL (0.00-0.50); Eosinophils % (auto) 0.5 %; Hematocrit (blood only) 43.5 % (42.0-52.0); Hemoglobin 14.7 g/dl (14.0-18.0); Immature Granulocytes # (auto) 0.06 K/uL (0.01-0.20); Immature Granulocytes % (auto) 0.5 %; Lymphocytes # (auto) 0.99 K/uL (1.20-3.40); Lymphocytes % (auto) 7.5 %; Mean Corpuscular Hemoglobin 31.5 pg (25.0-34.0); Mean Corpuscular Hgb Conc 33.8 g/dL (32.0-36.0); Mean Corpuscular Volume 93.3 fL (80.0-100.0); Mean Platelet Volume 10.9 fL (9.4-12.4); Monocytes # (auto) 0.57 K/uL (0.11-0.59); Monocytes % (auto) 4.3 %; Neutrophils % (auto) 86.9 %; Platelet Count 127 K/uL (130-400); RDW Coefficient of Variation 13.6 % (11.5-14.5); RDW Standard Deviation 46.5 fL (36.4-46.3); Red Blood Count 4.66 M/uL (4.70-6.10); White Blood Count 13.12 K/ul (4.8-10.8)
[2024-12-04] MEDS: ONDANSETRON INJ 2 MG/ML 2 ML VIAL IV STA (03:28)
[2024-12-04] MEDS: KETOROLAC TROMETHAMINE 15 MG/ML VIAL IV STA (03:31)
[2024-12-04 03:33] LABS: Alanine Aminotransferase 23 U/L (7-52); Albumin Globulin Ratio 1.3 (0.9-2); Albumin Level 3.8 gm/dl (3.4-5.0); Alkaline Phosphatase 122 U/L (34-104); Anion Gap 6 (3-11); Aspartate Aminotransferase 24 U/L (13-39); BUN Creatinine Ratio 17.4 (10-20); Blood Urea Nitrogen 19 mg/dl (6-23); Calcium 9.2 mg/dl (8.6-10.3); Carbon Dioxide 30 mmol/L (21-32); Chloride 100 mmol/L (98-107); Glucose 116 mg/dl (70-99(Fasting)); Lipase 33 U/L (11-82); Potassium 4.3 mmol/L (3.5-5.1); Sodium 136 mmol/L (136-145); Total Protein 6.8 gm/dl (6.0-8.3)
[2024-12-04] MEDS: MoRPHine SULFATE 2 MG/ML CARP IV STA ×2 (03:33→04:24)
[2024-12-04 03:40] LABS: Troponin I High Sensitivity 24.5 pg/ml (0-20)
--- NOTE | 2024-12-04 04:28 | XRay Report ---
EXAM: XR chest 1V portable CLINICAL HISTORY: CHEST PAIN [facility] TECHNIQUE: An X-ray image of the chest is obtained in AP projection. COMPARISON: 11/09/2024. FINDINGS: Pulmonary Parenchyma: Prominent broncho vascular markings. Lungs are clear bilaterally. No evidence of consolidation, collapse, or focal opacities. No pulmonary nodules are identified. No evidence of pleural effusion or pleural thickening. Heart and Mediastinum: Cardiomegaly. No mediastinal widening or masses. No hilar or mediastinal lymphadenopathy. Bony Thorax: The bony thorax appears intact without fractures or deformities. Soft Tissues: Soft tissues overlying the chest wall are unremarkable. IMPRESSION: 1. Prominent broncho vascular markings. This could represent pulmonary congestion due to cardiac disease. 2. Cardiomegaly. 3. No significant interval changes compared to prior study. Electronically signed by Cora Duong 12-04-2024 04:28 AM
[2024-12-04] MEDS: methylPREDNISolone 125 MG/2 ML VIAL IV STA (05:12)
[2024-12-04 05:26] LABS: Troponin I High Sensitivity 27.8 pg/ml (0-20)
[2024-12-04 06:11] LABS: Magnesium 1.8 mg/dl (1.7-2.4)
--- NOTE | 2024-12-04 06:50 | History & Physical Report ---
Date of Service December 04, 2024 Assessment & Plan (1) Atypical chest pain: Plan: Chest pain Likely protracted pericarditis episode status post prednisone course ongoing colchicine Rx chronic systolic heart failure EF 45 to 50%, TTE 2023, some congestion on imag ing without unusual SOB or fluid retention symptoms valvular heart disease (moderate to severe MR, mild TR) AF on Eliquis, rate controlled pulmonary hypertension hypertension, stable OBS Analgesia Cardiology consult re: recurrent pleuritic chest pain/pericarditis Recheck Lyme screen DVT prophylaxis. Eliquis DNR Patient daughter requesting updates providers. Ms. Nathalia Lassiter, contact #[phone]. Text document was generated using [employer] voice recognition software. It may contain grammatical or spelling errors. Kindly contact undersigned for clarification of any documentation item in question. History of Present Illness Chief Complaint: Chest pain Primary Care Provider: Susan Webster MD History obtained from patient, family, and records. Medical history significant for chronic systolic heart failure EF 45 to 50%, TTE 2023, valvular heart disease (moderate to severe MR, mild TR), PAF on Eliquis, pulmonary hypertension, hypertension, hyperlipidemia, history of Lyme disease status post Rx, gout, skin cancer as per records. Recent admission last month for chest pain attributed to pleurisy and pericarditis/pericardial effusion. Patient discharged on 3-week prednisone taper and colchicine course for at least 3 months. Improved symptoms at time of discharge. Patient completed prednisone Rx a few days ago. Patient was fixing his outdoor furnace last night when he experienced transient pleuritic chest pain complaints reminiscent of pericarditis attack. No fever, no chills. More pronounced symptoms later that night while watching TV. Dry cough symptoms, not sure about recent sick contacts. Transient neck discomfort without headache complaints. No recollection of recent tick bites although a lot of ticks where he resides. Minimal improvement of symptoms with aspirin and nitroglycerin administration by EMS. Marked relief of chest pain after Solu-Medrol and Toradol administration at the ER. Medical History as above Surgical History : Urologic procedure, knee surgery, Family History : Heart disease, DM Personal/Social history : Non-smoker, occasional EtOH intake Allergies Allergy/AdvReac Type Severity Reaction Status Date / Time aspirin Allergy Unknown Verified 12/04/24 02:46 Home Medications Medication Instructions Recorded Confirmed Type apixaban 5 mg tablet (Eliquis) 5 mg PO BID 05/12/23 12/04/24 History cholecalciferol (vitamin D3) 25 25 mcg PO QAM 05/12/23 12/04/24 History mcg (1,000 unit) tablet (Vitamin D3) losartan 25 mg tablet 25 mg PO QAM 05/12/23 12/04/24 History zinc gluconate 50 mg tablet 50 mg PO 3XWK 05/12/23 12/04/24 History allopurinol 100 mg tablet 200 mg PO QAM 11/09/24 12/04/24 History furosemide 20 mg tablet 20 mg PO QAM 11/09/24 12/04/24 History spironolactone 25 mg tablet 12.5 mg PO QAM 11/09/24 12/04/24 History colchicine 0.6 mg tablet (Colcrys) 0.6 mg PO QAM #90 tabs 11/10/24 12/04/24 Rx Past Med/Surg History Problem List (Updated 12/04/24 @ 09:20 by Dominick Mantilla MD) Atypical chest pain PVS (persistent vegetative state) Tobacco use disorder Frequent PVCs Systolic and diastolic CHF, chronic Chronic a-fib Afib (Acute) Hyperglycemia (Acute) Severe mitral insufficiency Mitral valve prolapse Chest pain, pleuritic Chest pain (Acute) Septic prepatellar bursitis of right knee (Acute 03/11/14) Medical History Persistent atrial fibrillation Social History Smoking Status: Never smoker Tobacco Type: Smokeless Tobacco (Dip or Chew) Second Hand Exposure: No; Do You Dip or Chew Tobacco: Yes; Hx Alcohol Use: Yes Alcohol type: beer Hx Substance Use: No Preferred Language: Ethiopian Communication Ability: Effective Gas Reverser Required: No Beliefs That Will Affect Care: None Current Living Situation: Alone Feels Safe at Home: Yes Assistive Devices: Bedside Commode, Cane and Walker Review of Systems Review of Systems: As per HPI, all other systems reviewed and negative Physical Exam Physical Exam: GENERAL: Comfortable, pleasant, slightly hard of hearing, no respiratory distress SKIN: Normal color, warm HEENT: [place] palpebral conjunctivae, no ptosis, dry buccal mucosa NECK : Supple, no tenderness CHEST : CTA, no tenderness HEART : Irregular, systolic murmur ABDOMEN:no distention, nontender EXTREMITIES : No LE swelling/tenderness, no other conspicuous deformities noted NEUROLOGIC : Coherent, no facial asymmetry, no other gross focality Results & Data Results & Data Vital Signs (Past 12 Hours) Vital Signs Temp Pulse Pulse Resp BP BP Pulse Ox 12/04/24 06:36 77 12/04/24 06:34 75 21 114/76 93 12/04/24 05:17 77 21 136/74 94 12/04/24 03:37 87 28 H 136/74 95 12/04/24 02:43 88 12/04/24 02:42 36.8 C 76 21 140/87 96 O2 Del Method 12/04/24 06:36 12/04/24 06:34 Room Air 12/04/24 05:17 Room Air 12/04/24 03:37 Room Air 12/04/24 02:43 12/04/24 02:42 Room Air Laboratory Results Laboratory Results WBC 13.12 K/ul (4.8-10.8) H 12/04/24 02:44 RBC 4.66 M/uL (4.70-6.10) L 12/04/24 02:44 Hgb 14.7 g/dl (14.0-18.0) 12/04/24 02:44 Hct 43.5 % (42.0-52.0) 12/04/24 02:44 MCV 93.3 fL (80.0-100.0) 12/04/24 02:44 MCH 31.5 pg (25.0-34.0) 12/04/24 02:44 MCHC 33.8 g/dL (32.0-36.0) 12/04/24 02:44 RDW Std Deviation 46.5 fL (36.4-46.3) H 12/04/24 02:44 RDW Coeff of Storm 13.6 % (11.5-14.5) 12/04/24 02:44 Plt Count 127 K/uL (130-400) L 12/04/24 02:44 MPV 10.9 fL (9.4-12.4) 12/04/24 02:44 Immature Gran % (Auto) 0.5 % 12/04/24 02:44 Neut % (Auto) 86.9 % 12/04/24 02:44 Lymph % (Auto) 7.5 % 12/04/24 02:44 [place] % (Auto) 4.3 % 12/04/24 02:44 Eos % (Auto) 0.5 % 12/04/24 02:44 Baso % (Auto) 0.3 % 12/04/24 02:44 Neut # (Auto) 11.40 K/uL (1.40-6.50) H 12/04/24 02:44 Lymph # (Auto) 0.99 K/uL (1.20-3.40) L 12/04/24 02:44 [place] # (Auto) 0.57 K/uL (0.11-0.59) 12/04/24 02:44 Eos # (Auto) 0.06 K/uL (0.00-0.50) 12/04/24 02:44 Baso # (Auto) 0.04 K/uL (0.00-0.20) 12/04/24 02:44 Immature Gran # (Auto) 0.06 K/uL (0.01-0.20) 12/04/24 02:44 Sodium 136 mmol/L (136-145) 12/04/24 02:44 Potassium 4.3 mmol/L (3.5-5.1) 12/04/24 02:44 Chloride 100 mmol/L (98-107) 12/04/24 02:44 Carbon Dioxide 30 mmol/L (21-32) 12/04/24 02:44 Anion Gap 6 (3-11) 12/04/24 02:44 BUN 19 mg/dl (6-23) 12/04/24 02:44 Creatinine 1.09 mg/dl (0.6-1.4) 12/04/24 02:44 Est Cr Clr Drug Dosing Not Reportable 12/04/24 02:44 eGFR 67.76 12/04/24 02:44 BUN/Creatinine Ratio 17.4 (10-20) 12/04/24 02:44 Glucose 116 mg/dl (70-99(Fasting)) H 12/04/24 02:44 Calcium 9.2 mg/dl (8.6-10.3) 12/04/24 02:44 Magnesium 1.8 mg/dl (1.7-2.4) 12/04/24 04:51 Total Bilirubin 1.0 mg/dl (0.2-1.0) 12/04/24 02:44 AST 24 U/L (13-39) 12/04/24 02:44 ALT 23 U/L (7-52) 12/04/24 02:44 Alkaline Phosphatase 122 U/L (34-104) H 12/04/24 02:44 Troponin I High Sens 27.8 pg/ml (0-20) H 12/04/24 04:51 Total Protein 6.8 gm/dl (6.0-8.3) 12/04/24 02:44 Albumin 3.8 gm/dl (3.4-5.0) 12/04/24 02:44 Globulin 3.0 gm/dl (2.5-4.0) 12/04/24 02:44 Albumin/Globulin Ratio 1.3 (0.9-2) 12/04/24 02:44 Lipase 33 U/L (11-82) 12/04/24 02:44 Impressions Chest X-Ray 12/04/24 03:04 EXAM: XR chest 1V portable CLINICAL HISTORY: CHEST PAIN F TECHNIQUE: An X-ray image of the chest is obtained in AP projection. COMPARISON: 11/09/2024. FINDINGS: Pulmonary Parenchyma: Prominent broncho vascular markings. Lungs are clear bilaterally. No evidence of consolidation, collapse, or focal opacities. No pulmonary nodules are identified. No evidence of pleural effusion or pleural thickening. Heart and Mediastinum: Cardiomegaly. No mediastinal widening or masses. No hilar or mediastinal lymphadenopathy. Bony Thorax: The bony thorax appears intact without fractures or deformities. Soft Tissues: Soft tissues overlying the chest wall are unremarkable. IMPRESSION: 1. Prominent broncho vascular markings. This could represent pulmonary congestion due to cardiac disease. 2. Cardiomegaly. 3. No significant interval changes compared to prior study. Electronically signed by Cora Duong 12-04-2024 04:28 AM Diagnostic Findings EKG as per my interpretation :Rate 60, A-fib, RAD, T wave flattening, low voltage
[2024-12-04 07:00] LABS: Adenovirus PCR Not Detected (NotDetected); Bordetella parapertussis PCR Not Detected (NotDetected); Bordetella pertussis PCR Not Detected (NotDetected); Chlamydia pneumoniae PCR Not Detected (NotDetected); Coronavirus 229E PCR Not Detected (NotDetected); Coronavirus CoV-2 (COVID19)PCR Not Detected (NotDetected); Coronavirus HKU1 PCR Not Detected (NotDetected); Coronavirus NL63 PCR Not Detected (NotDetected); Coronavirus OC43PCR Not Detected (NotDetected); Human Metapneumovirus PCR Not Detected (NotDetected); Influenza A PCR Not Detected (NotDetected); Influenza B PCR Not Detected (NotDetected); Mycoplasma pneumoniae PCR Not Detected (NotDetected); Parainfluenza Virus 1 PCR Not Detected (NotDetected); Parainfluenza Virus 2 PCR Not Detected (NotDetected); Parainfluenza Virus 3 PCR Not Detected (NotDetected); Parainfluenza Virus 4 PCR Not Detected (NotDetected); Respiratory Syncytial VirusPCR Not Detected (NotDetected); Rhinovirus/Enterovirus PCR Not Detected (NotDetected)
[2024-12-04] MEDS ORDERED: PROMETHAZINE 6.25 MG/50.25 ML BAG IV PRN (07:03)
[2024-12-04] MEDS ORDERED: oxyCODONE HCL IR 5 MG TAB (IMMEDIATE RELEASE) PO PRN ×2 (07:03→07:15)
[2024-12-04] MEDS ORDERED: ACETAMINOPHEN 325 MG TAB PO PRN (07:03)
[2024-12-04] MEDS ORDERED: traMADol HCL 50 MG TABLET PO PRN (07:05)
[2024-12-04] MEDS ORDERED: oxyCODONE HCL IR 5 MG TAB (IMMEDIATE RELEASE) PO STA (07:05)
[2024-12-04] MEDS ORDERED: MoRPHine SULFATE 4 MG/ML 1 ML CARP\\VIAL IV PRN (07:06)
[2024-12-04] MEDS ORDERED: HYDROmorphone INJ 0.5 MG/0.5 ML SYR IV PRN (07:15)
[2024-12-04] MEDS: oxyCODONE HCL IR 5 MG TAB (IMMEDIATE RELEASE) PO STA (07:50)
[2024-12-04 09:15] LABS: C Reactive Protein 6.85 mg/dl (0-0.5)
[2024-12-04 09:22] LABS: Troponin I High Sensitivity 24.1 pg/ml (0-20)
[2024-12-04] MEDS: COLCHICINE 0.6 MG TAB PO SCH (10:26)
[2024-12-04] MEDS: FUROSEMIDE 20 MG TAB PO SCH (10:26)
[2024-12-04] MEDS: APIXABAN 5 MG TABLET PO SCH (10:27)
[2024-12-04] MEDS: CHOLECALCIFEROL 25 MCG (1000 UNITS) TAB PO SCH (10:27)
[2024-12-04] MEDS: LOSARTAN POTASSIUM 25 MG TAB PO SCH (10:27)
[2024-12-04] MEDS: allopurinoL 100 MG TAB PO SCH (10:27)
[2024-12-04] MEDS: traMADol HCL 50 MG TABLET PO STA (10:29)
[2024-12-04 10:42] LABS: Lyme Screen Rflx Confirmation Positive (Negative)
[2024-12-04 11:16] LABS: Lyme Ab IgG 2nd Tier Confirm Positive (Negative); Lyme Ab IgM 2nd Tier Confirm Negative (Negative)
--- NOTE | 2024-12-04 13:06 | Cardiology Consultation ---
Date of Consultation December 04, 2024 Assessment & Plan (1) Pericarditis: Symptoms suggestive of recurrent pleuritis/pleuropericarditis having recently ceased prednisone therapy. Hide since he troponin minimally elevated, flat trend. EKG without repolarization abnormalities to suggest acute ischemia, and the characteristic of the discomfort is not suggestive of angina. Continue colchicine 0.6 mg daily. Recommend resuming prednisone of 5 mg daily for 7 days, then 2.5 mg daily for 7 days, followed by 2.5 mg every other day x 7 doses. He already has cardiology follow-up planned on 01/21/2025 and should keep that appointment. No further cardiac testing felt to be indicated at this time. Okay to discharge patient from a cardiac perspective with plan as noted. History of Present Illness Attending Physician: Dominick Mantilla MD History of Present Illness Mr Stout is an 84 year old male seen in cardiology consultation per the request of Dr Mantilla for the evaluation of chest pain. Patient has recently been hospitalized 3 weeks ago with pleuritic chest pain and a minimal elevation in the high-sensitivity troponin. No pericardial effusion was noted on echocardiogram but a small circumferential pericardial fusion was noted on a CT of the chest. He was treated for pleuritis versus pleuropericarditis and placed on colchicine 0.6 mg daily and a tapering dose of prednisone starting at 20 mg for 7 days then 10 mg for 7 days and 5 mg for 7 days. The patient completed his course of prednisone just few days ago. Yesterday he had recurrence of chest discomfort while working on his furnace. Symptoms resolved in the emergency department after receiving Solu-Medrol and Toradol. At the time my assessment he was asymptomatic and feeling well. Past Medical and Surgical History Mitral valve prolapse. Severe mitral regurgitation. Conservative nonsurgical medical management requested by the patient thus far Heart failure, combined systolic and diastolic. LVEF 45-49%. Permanent atrial fibrillation/flutter Chronic Eliquis anticoagulation Frequent PVCs Dyslipidemia Gout Osteoarthritis Tobacco use disorder, snuff Family History: Positive for CAD in father who at the age of 87. Three sisters with CAD and/or CHF. Social History: Never smoker. Smokeless tobacco user. No significant alcohol. (Eleni). Five children. Retired, previously self-employed repairman. Allergies Allergy/AdvReac Type Severity Reaction Status Date / Time aspirin Allergy Unknown Verified 12/04/24 02:46 Home Medications Medication Instructions Recorded Confirmed Type apixaban 5 mg tablet (Eliquis) 5 mg PO BID 05/12/23 12/04/24 History cholecalciferol (vitamin D3) 25 25 mcg PO QAM 05/12/23 12/04/24 History mcg (1,000 unit) tablet (Vitamin D3) losartan 25 mg tablet 25 mg PO QAM 05/12/23 12/04/24 History zinc gluconate 50 mg tablet 50 mg PO 3XWK 05/12/23 12/04/24 History allopurinol 100 mg tablet 200 mg PO QAM 11/09/24 12/04/24 History furosemide 20 mg tablet 20 mg PO QAM 11/09/24 12/04/24 History spironolactone 25 mg tablet 12.5 mg PO QAM 11/09/24 12/04/24 History colchicine 0.6 mg tablet (Colcrys) 0.6 mg PO QAM #90 tabs 11/10/24 12/04/24 Rx Patient History Medical History Persistent atrial fibrillation Social History Smoking Status: Never smoker Tobacco Type: Smokeless Tobacco (Dip or Chew) Second Hand Exposure: No; Do You Dip or Chew Tobacco: Yes; Hx Alcohol Use: Yes Alcohol type: beer Hx Substance Use: No Preferred Language: Tamazight Communication Ability: Effective Tumbling And Rolling Supervisor Required: No Beliefs That Will Affect Care: None Current Living Situation: Alone Feels Safe at Home: Yes Assistive Devices: Bedside Commode, Cane and Walker Review of Systems Review of Systems: All systems reviewed & are unremarkable except as noted in HPI & below Physical Exam Physical Exam: General: no acute distress and stated age Eyes: conjunctiva are pink and non-injected, sclera clear Neck: normal jugular venous pulse, no hepatojugular reflux Chest: normal shape and normal respiratory effort Lungs: clear to auscultation and percussion Cardiac Exam: -Irregular rhythm, 2/6 systolic murmur Abdomen: abdomen soft, non-tender, no abnormal masses and no hepatosplenomegaly Musculoskeletal: no gait disturbance, no weakness Extremities: no edema and no cyanosis Neuro:awake, conversant, follows commands, no focal motor deficits Psych: appropriate affect and insight. Results & Data Vital Signs (Past 12 Hours) Vital Signs Temp Pulse Pulse Resp BP BP Pulse Ox 12/04/24 10:37 36.8 C 58 L 19 122/79 93 12/04/24 10:33 36.8 C 73 18 122/79 93 12/04/24 10:28 96 12/04/24 10:27 36.5 C 66 19 109/72 96 12/04/24 07:49 36.7 C 78 18 108/78 93 12/04/24 07:48 94 12/04/24 06:36 77 12/04/24 06:34 75 21 114/76 93 12/04/24 05:17 77 21 136/74 94 12/04/24 03:37 87 28 H 136/74 95 12/04/24 02:43 88 12/04/24 02:42 36.8 C 76 21 140/87 96 O2 Del Method 12/04/24 10:37 Room Air 12/04/24 10:33 Room Air 12/04/24 10:28 Room Air 12/04/24 10:27 Room Air 12/04/24 07:49 Room Air 12/04/24 07:48 Room Air 12/04/24 06:36 12/04/24 06:34 Room Air 12/04/24 05:17 Room Air 12/04/24 03:37 Room Air 12/04/24 02:43 12/04/24 02:42 Room Air Laboratory Results Cardiac Enzymes 12/04/24 12/04/24 12/04/24 Range/Units 02:44 04:51 08:40 AST 24 (13-39) U/L Troponin I High Sens 24.5 H 27.8 H 24.1 H (0-20) pg/ml CBC 12/04/24 Range/Units 02:44 WBC 13.12 H (4.8-10.8) K/ul RBC 4.66 L (4.70-6.10) M/uL Hgb 14.7 (14.0-18.0) g/dl Hct 43.5 (42.0-52.0) % Plt Count 127 L (130-400) K/uL Neut # (Auto) 11.40 H (1.40-6.50) K/uL Lymph # (Auto) 0.99 L (1.20-3.40) K/uL [place] # (Auto) 0.57 (0.11-0.59) K/uL Eos # (Auto) 0.06 (0.00-0.50) K/uL Baso # (Auto) 0.04 (0.00-0.20) K/uL Comprehensive Metabolic Panel 12/04/24 Range/Units 02:44 Sodium 136 (136-145) mmol/L Potassium 4.3 (3.5-5.1) mmol/L Chloride 100 (98-107) mmol/L Carbon Dioxide 30 (21-32) mmol/L BUN 19 (6-23) mg/dl Creatinine 1.09 (0.6-1.4) mg/dl Glucose 116 H (70-99(Fasting)) mg/dl Calcium 9.2 (8.6-10.3) mg/dl AST 24 (13-39) U/L ALT 23 (7-52) U/L Alkaline Phosphatase 122 H (34-104) U/L Total Protein 6.8 (6.0-8.3) gm/dl Albumin 3.8 (3.4-5.0) gm/dl Intake and Output 12/03/24 12/04/24 12/04/24 22:59 06:59 14:59 Other: Weight 76 kg Weight Measurement Method Built in [facility] Patient Weight 12/05/24 06:59 Weight 76 kg C-reactive protein elevated 12/04/2024 at 6.85 mg/dL (this was not measured on the previous admission in November 2024) Erythrocyte sedimentation rate 12/04/2024 was normal at 13 mm/h as compared to 33 mm/h on 11/09/2024 Diagnostic Findings Chest x-ray per my interpretation not suggestive of pulmonary edema EKG performed 12/04/2024 at 2:41 AM revealed rate controlled atrial fibrillation at 61 bpm poor R wave progression in the precordial leads, no acute ST segment changes. Relative stable findings compared to 11/10/2024.
--- NOTE | 2024-12-04 14:54 | Electrocardiogram Report ---
Test Reason : Blood Pressure : */* mmHG Vent. Rate : 61 BPM Atrial Rate : * BPM P-R Int : * ms QRS Dur : 88 ms QT Int : 418 ms P-R-T Axes : * 90 72 degrees QTcB Int : 420 ms Atrial fibrillation Rightward axis Abnormal ECG When compared with ECG of 10-Nov-2024 06:58, ST no longer elevated in Lateral leads T wave amplitude has decreased in Anterolateral leads Confirmed by Chris Snow ([id number]) on 12/04/2024 2:53:49 PM Referred By: REFERRED SELF Confirmed By: Chris Snow
--- NOTE | 2024-12-04 15:07 | Electrocardiogram Report ---
Test Reason : Blood Pressure : */* mmHG Vent. Rate : 78 BPM Atrial Rate : 375 BPM P-R Int : * ms QRS Dur : 94 ms QT Int : 410 ms P-R-T Axes : * 69 76 degrees QTcB Int : 467 ms Atrial fibrillation Anterior infarct , age undetermined Abnormal ECG When compared with ECG of 04-Dec-2024 02:41, No significant change Confirmed by Chris Snow ([id number]) on 12/04/2024 3:07:05 PM Referred By: REFERRED SELF Confirmed By: Chris Snow
[2024-12-04] MEDS: predniSONE 5 MG TAB PO SCH (15:29)
[2024-12-04] MEDS: DOXYCYCLINE HYCLATE 100 MG CAP PO SCH (15:30)
--- NOTE | 2024-12-04 15:58 | Communication Note ---
Date of Service: December 04, 2024 Patient seen and examined at bedside. He reports that the chest pain has resolved. Vital signs are stable On physical examination; Constitutional: Awake alert oriented x 3; not in distress. Respiratory: normal respiratory effort, lungs clear to auscultation, no wheeze, rales, rhonchi. Normal insp/exp effort, no accessory muscle use Cardiovascular: RRR, no murmur, no edema Vessels: no JVD or carotid bruit Chest: normal inspection of chest Abdomen: normal bowel sounds, soft, nontender, no hepatosplenomegaly Musculoskeletal: no cyanosis or clubbing, extremities motor strength 5/5 Skin: no rashes, warm and dry normal turgor Neurologic: PERRL, EOMI, accommodation nl, no face palsy, no dysarthria CN's II- XI intact bilaterally and moves all extremities Psychiatric: A+Ox3, euthymic affect Assessment/plan 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 Chest pain resolved with NSAIDs CRP elevated to 6.85 Lyme IgG positive; denies history of treatment in the past. Continued colchicine; prednisone added as per cardiology Will start doxycycline; treat for 3 weeks Paroxysmal atrial fibrillation On Eliquis Will monitor on temetry CKD stage III Baseline creatinine 1.1 Presented with creatinine 1.4 continue Lasix and spironolactone and losartan and monitor History of gout On allopurinol Hypertension- continue home meds Tobacco use disorder Snuffs tobacco Counseling DVT prophylaxis Eliquis Disposition telemetry Full code. Please note the above document was generated using voice recognition software. It may contain grammatical, syntax or spelling errors. Any formal questions or concerns about the content, text or information contained within the body of this dictation should be directly addressed to the provider for clarification
[2024-12-04 16:40] VITALS: RESP 18
[2024-12-04] MEDS: COUGH DROP (SUGAR FREE) LOZ 24 LOZ/1 BOX BUCCAL ONE (21:13)
[2024-12-05 06:32] LABS: Basophils # (auto) 0.02 K/uL (0.00-0.20); Basophils % (auto) 0.1 %; Eosinophils # (auto) 0.01 K/uL (0.00-0.50); Eosinophils % (auto) 0.1 %; Hematocrit (blood only) 40.2 % (42.0-52.0); Hemoglobin 13.8 g/dl (14.0-18.0); Immature Granulocytes % (auto) 0.6 %; Lymphocytes # (auto) 1.42 K/uL (1.20-3.40); Lymphocytes % (auto) 8.8 %; Mean Corpuscular Hemoglobin 31.2 pg (25.0-34.0); Mean Corpuscular Hgb Conc 34.3 g/dL (32.0-36.0); Mean Corpuscular Volume 90.7 fL (80.0-100.0); Mean Platelet Volume 11.1 fL (9.4-12.4); Monocytes # (auto) 1.14 K/uL (0.11-0.59); Monocytes % (auto) 7.1 %; Neutrophils # (auto) 13.46 K/uL (1.40-6.50); Neutrophils % (auto) 83.3 %; Platelet Count 111 K/uL (130-400); RDW Coefficient of Variation 13.3 % (11.5-14.5); RDW Standard Deviation 44.6 fL (36.4-46.3); Red Blood Count 4.43 M/uL (4.70-6.10); White Blood Count 16.15 K/ul (4.8-10.8)
[2024-12-05 06:47] LABS: BUN Creatinine Ratio 27.3 (10-20); Calcium 9.3 mg/dl (8.6-10.3); Creatinine Clr Calc Pharmacy 37.5 ml/min; Potassium 4.7 mmol/L (3.5-5.1)
[2024-12-05] MEDS: predniSONE 2.5 MG TAB PO SCH (08:37)
--- NOTE | 2024-12-05 10:42 | Discharge Summary ---
Date of Service December 05, 2024 Admission HPI Per Admitting Provider History obtained from patient, family, and records. Medical history significant for chronic systolic heart failure EF 45 to 50%, TTE 2023, valvular heart disease (moderate to severe MR, mild TR), PAF on Eliquis, pulmonary hypertension, hypertension, hyperlipidemia, history of Lyme disease status post Rx, gout, skin cancer as per records. Recent admission last month for chest pain attributed to pleurisy and perica rditis/pericardial effusion. Patient discharged on 3-week prednisone taper and colchicine course for at least 3 months. Improved symptoms at time of discharge. Patient completed prednisone Rx a few days ago. Patient was fixing his outdoor furnace last night when he experienced transient pleuritic chest pain complaints reminiscent of pericarditis attack. No fever, no chills. More pronounced symptoms later that night while watching TV. Dry cough symptoms, not sure about recent sick contacts. Transient neck discomfort without headache complaints. No recollection of recent tick bites although a lot of ticks where he resides. Minimal improvement of symptoms with aspirin and nitroglycerin administration by EMS. Marked relief of chest pain after Solu-Medrol and Toradol administration at the ER. Medical History as above Surgical History : Urologic procedure, knee surgery, Family History : Heart disease, DM Personal/Social history : Non-smoker, occasional EtOH intake Admission Exam Per Admitting Provider GENERAL: Comfortable, pleasant, slightly hard of hearing, no respiratory distress SKIN: Normal color, warm HEENT: [place] palpebral conjunctivae, no ptosis, dry buccal mucosa NECK : Supple, no tenderness CHEST : CTA, no tenderness HEART : Irregular, systolic murmur ABDOMEN:no distention, nontender EXTREMITIES : No LE swelling/tenderness, no other conspicuous deformities noted NEUROLOGIC : Coherent, no facial asymmetry, no other gross focality Principal Diagnosis Pericarditis/pleurisy Discharge Exam Constitutional: Awake alert oriented x 3; not in distress. Respiratory: normal respiratory effort, lungs clear to auscultation, no wheeze, rales, rhonchi. Normal insp/exp effort, no accessory muscle use Cardiovascular: RRR, no murmur, no edema Vessels: no JVD or carotid bruit Chest: normal inspection of chest Abdomen: normal bowel sounds, soft, nontender, no hepatosplenomegaly Musculoskeletal: no cyanosis or clubbing, extremities motor strength 5/5 Skin: no rashes, warm and dry normal turgor Neurologic: PERRL, EOMI, accommodation nl, no face palsy, no dysarthria CN's II- XI intact bilaterally and moves all extremities Psychiatric: A+Ox3, euthymic affect Discharge Data Allergies Allergy/AdvReac Type Severity Reaction Status Date / Time aspirin Allergy Unknown Verified 12/04/24 02:46 Consultations 12/04/24 04:25 ED Decision to Admit Stat 12/04/24 07:03 Consult Cardiology Routine Hospital Course (1) Pericarditis: Plan 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 Chest pain resolved with NSAIDs CRP elevated to 6.85 Lyme IgG positive; denies history of treatment in the past. Patient was admitted to medical floor;Cardiology was consulted for comanagement during the hospitalization; patient was started on prednisone 5 mg once a day as per recommendation. Plan is to taper it gradually with 5 mg once a day for 7 days followed by 2.5 mg for 7 days and 2.5 mg every other day for 7 more doses. Plan is to continue colchicine as patient is tolerating it well. Since, patient was found to have Lyme IgG positive and was not treated in the past; decision was made to treat patient with doxycycline for total of 3 weeks. Patient needs to follow-up with primary care doctor and obtain CRP. It may be beneficial for patient to be referred for rheumatology workup due to the recurrent nature of the pericarditis. Please note the above document was generated using voice recognition software. It may contain grammatical, syntax or spelling errors. Any formal questions or concerns about the content, text or information contained within the body of this dictation should be directly addressed to the provider for clarification Total Time Total Time Spent Total Time Spent (In Minutes): 45 Total Time Includes: Examination of the Patient, Discharge Planning, Medication Reconciliation, Communication With Other Providers and Other Discharge Plan Discharge Items Patient Disposition: Home - Self-Care Reason For Visit: CP Discharge Diagnosis: Pericarditis Activity: Resume your previous activity Non-emergency contact: Primary Care Provider Call non-emergency contact if: you have any medication questions and your symptoms worsen Follow-up/Referrals: Susan Webster MD [Primary Care Provider] - Diet: Regular Addtl Attending Provider Instructions: You were admitted to the hospital with chest pain. The likely cause for the chest pain is inflammation of the covering of your heart and lung. You are prescribed prednisone 2.5 mg to be taken as follows Take 5 mg once a day for 7 days Take 2.5 mg once a day for 7 days Take 2.5 mg every other day for 14 days You were found to have Lyme antibodies present. Since you have not been treated in the past for it; you are prescribed doxycycline to be taken twice a day for 20 days. Pending Studies at Discharge: No Stand-Alone Forms: My [facility], Smoking Cessation Medications and DC Order Prescriptions: New doxycycline hyclate 100 mg Capsule 100 mg PO Q12H 20 Days Qty: 40 0RF prednisone 2.5 mg Tablet See Taper PO DAILY Qty: 30 0RF Taper: Taper, Blank 5 mg DAILY for 7 Days 2.5 mg DAILY for 7 Days 2.5 mg every other day for 14 Days Continued losartan 25 mg tablet 25 mg PO QAM zinc gluconate 50 mg Tablet 50 mg PO 3XWK Patient Comments: takes every other day cholecalciferol (vitamin D3) [Vitamin D3] 25 mcg (1,000 unit) Tablet 25 mcg PO QAM Eliquis 5 mg tablet 5 mg PO BID allopurinol 100 mg tablet 200 mg PO QAM spironolactone 25 mg tablet 12.5 mg PO QAM furosemide 20 mg tablet 20 mg PO QAM colchicine [Colcrys] 0.6 mg Tablet 0.6 mg PO QAM Qty: 90 0RF Discharge Orders: Discharge Order (Routine); Ordered 12/05/24 Ordered By: Walker Teran Admission Data Admit Date/Time: 12/04/24 06:51 Attending Provider: Walker Teran Admit Provider: Dominick Mantilla Primary Care Provider: Susan Webster Other Providers: Dominick Mantilla; Yumi Light; Fran Membreno; Jerry Bermeo; Travis Lyons; Omkar Pride; Jerad Bashir; Cyndy Acevedo; Antionette Rios; Lydia Nevarez; Yumi Ortiz; Rico Hughes; Gabriel Bourgeois; Jonelle Grover; Christianne Mosley; Franny Batres; Megan Dover; Nii Vazquez; Shyann Patricio; Nahed Wiggins
[2024-12-05 11:45] VITALS: BP 115/77; TEMP 97.7; O2SAT 97
[2024-12-05 14:40] VITALS: PULSE 57
== END 2024-12-05 17:14 | disposition home or self-care (01) ==
LOC: EDINP 02:32 → ED 02:32 → SUATTDRO 06:51 → EDINP 09:50 → 4W 16:34